=== PATIENT | male | born 1970 | race Caucasian/White ===

== ENCOUNTER 2018-04-26 10:02 | Outpatient (REF) | payer MEDICAID, SELFPAY ==
[2018-04-26 12:42] LABS: Hemoglobin A1C 9.9 % (4.5-6.2)
[2018-04-26 12:53] LABS: ALT 68 U/L (12-78); AST 33 U/L (15-37); Alkaline Phosphatase 92 U/L (46-116); Bilirubin, Direct 0.21 mg/dL (0.00-0.20); Bilirubin, Total 0.8 mg/dL (0.2-1.0); Total Protein 7.5 g/dL (6.4-8.2)
[2018-04-26 12:54] LABS: COMMENT (LAB VIEW ONLY) 58.33 mg/dL; Microalb ug/mg Crea 84.2 ug/mg Cr
== END 2018-04-26 10:03 ==
LOC: NCHCN 10:02
PROVIDERS: PCP Nurse Practitioner; Visit Provider Nurse Practitioner
DX: E11.9 Type 2 diabetes mellitus without complications (principal); R79.89 Other specified abnormal findings of blood chemistry
CPT/HCPCS: 80076; 82043; 82570; 83036

== ENCOUNTER 2019-07-24 12:26 | Outpatient (REF) | payer MEDICAID, SELFPAY ==
[2019-07-24 19:27] LABS: HCT 47.5 % (40.0-50.0); HGB 16.1 g/dL (13.5-17.5); Mean Corp. HGB Concentration 33.9 g/dL (32.0-36.0); Mean Corpuscular Hemoglobin 29.4 pg (27.0-33.0); Mean Corpuscular Volume 86.7 fL (80-95); Mean Platelet Volume 11.8 fL (8.0-11.0); Platelet Count 217 x1000/uL (130-400); RBC 5.48 m/cumm (4.50-6.00); RBC Distribution Width 12.8 % (11.8-14.1); White Blood Cell Count 10.25 k/cumm (4.4-10.8)
[2019-07-24 19:49] LABS: ALT 47 U/L (16-63); AST 21 U/L (15-37); Albumin 3.8 g/dL (3.4-5.0); Alkaline Phosphatase 89 U/L (46-116); Anion Gap 11.1 mmol/L (3-11); BUN 11 mg/dL (7-18); Bilirubin, Total 1.2 mg/dL (0.2-1.0); CO2 25.9 mmol/L (21.0-32.0); CREATININE 0.72 mg/dL (0.70-1.30); Calcium 9.4 mg/dL (8.5-10.1); Chloride 102 mmol/L (98-107); Glucose 162 mg/dL (70-100); Potassium 4.1 mmol/L (3.5-5.1); Sodium 139 mmol/L (136-145); TSH (W/Ref FT4) 0.58 uIU/mL (0.36-3.74); Total Protein 7.2 g/dL (6.4-8.2); Vitamin B12 597 pg/mL (193-986)
[2019-07-26 06:17] LABS: Vitamin D 25 Total 22.3 ng/ml (30-100)
== END 2019-07-24 12:46 ==
LOC: NCHCN 12:26
PROVIDERS: PCP Nurse Practitioner; Visit Provider Nurse Practitioner
DX: R79.89 Other specified abnormal findings of blood chemistry (principal); I10 Essential (primary) hypertension; E11.9 Type 2 diabetes mellitus without complications
CPT/HCPCS: 80053; 82306; 85027; 82607; 84443

== ENCOUNTER 2019-10-19 11:09 | Emergency (ER) | payer MEDICAID, SELFPAY ==
[2019-10-19 11:14] VITALS: BP 163/111; PULSE 110; RESP 18; TEMP 36.7; O2SAT 97
--- NOTE | 2019-10-19 11:17 | W.ED.GENAD ---
Discharge Plan Disposition Patient Disposition: HOME Condition: Good Discharge Details Chief Complaint: PsychEval Clinical Impression: Cellulitis Primary Care Provider: Shana Ceballos ED Provider: Liam Roper Home Meds and New Rx's Prescriptions: New cephalexin [Keflex] 500 mg capsule 500 mg PO QID 10 Days Qty: 40 RF: 0 No Action atorvastatin [Lipitor] 20 MG tablet 20 mg PO HS RF: 0 omeprazole 40 MG capsule,delayed release(DR/EC) 40 mg PO DAILY RF: 0 lisinopril 10 MG tablet 10 mg PO HS RF: 0 Lantus Solostar U-100 Insulin 100 UNIT/ML insulin pen 36 units SQ HS RF: 0 Discharge Instructions Instructions: Cellulitis (ED) Additional Instructions: At this time you do have mild cellulitis of your arms. This is secondary to the scratching. Please cover with triple antibiotic or bacitracin ointment 2-3 times per day, keep bandage, and please stop scratching at the areas. Please take the Keflex as directed. If you have any questions or concerns in regards to the care of your father or need continued help navigating the complex system of insurance and Medicare and Medicaid please do not hesitate to contact us or our case management social worker for additional help. If you notice any worsening of your symptoms, or any new symptoms such as vomiting, diarrhea, fever, chills, shortness of breath, chest pain, numbness, weakness, or fainting , please return immediately to the emergency department for reevaluation. Please follow up with your primary care provider as soon as possible for reassessment and reevaluation. As always, it was a pleasure participating in your medical care today. Referrals: Shana Ceballos [Primary Care Provider] - Discharge Data Discharge Date/Time-TO BE ENTERED AT DEPARTURE: 10/19/19 12:40 Medical Decision Making This is a pleasant 48-year-old male with past medical history of diabetes, hypertension, and high cholesterol and reflux who presents today for evaluation of 2 lesions on his arms bilaterally. Patient has had a significant amount of stress in his home as of late secondary to the Alzheimer's dementia of his father. Because of this he has been picking at his forearms bilaterally leading to 2 medium sized ulcerated lesions, one on each side. Diameter is roughly 3-1/2 cm. No losing or discharge. No evidence of abscess or fluctuance. No traveling redness. No other significant abnormalities. Patient denies any homicidal or suicidal ideations. He denies any IV or illicit drug use. No indication for significant mental health evaluation as he shows no signs of concerning psychiatric episode at this point. He does have mild cellulitis which she is requesting to be treated. No evidence of fever or chills. No evidence of bacteremia. Will give Keflex here, first dose here and then a prescription for home use. Lesions were washed, and bandaged. We have contacted mental health discussed the case with Shirley. The patient has multiple resources at home for help, and for himself with help in alleviating the stressors. We have been in contact with multiple case management social worker in regards to the issues with his father, we are actively working to help solve his potential placement issue. The patient has no other requests at this time. He is asking to go home. I do feel that this is safe and appropriate. [facility] will be continuing to follow him closely on an outpatient basis and has no other additional recommendations at this time. I have extensively reviewed the treatment plan and discharge instructions with the patient. I have addressed all patient concerns at this time. The patient was made aware of what symptoms to monitor for that would warrant a return to the emergency department. Discussed the plan with the patient, they demonstrate verbal understanding and agreement with our assessment and plan at this time. HPI General Date/Time Provider Initiated Documentation: 10/19/19 11:09. HPI Narrative: This is a 48-year-old male with a past medical history of hypertension, high cholesterol, insulin-dependent diabetic, who presents today for evaluation of lesions on his 2 arms. Patient has had notable stresses at home with the severity of his father's Alzheimer's/dementia. Because of the stress he has been picking at his forearms bilaterally. He has had small lesions over this area, which have developed some mild redness. His template layout worker recommended that he come be evaluated. He denies any homicidal or suicidal ideations. He denies any numbness tingling or weakness. He denies any fever or chills. No discharge or drainage. No other complaints at this time. He has not been on any recent antibiotics. He denies any auditory or visual hallucinations, suicidal ideations, homicidal ideations, IV or illicit drug use. Related Data Home Medications Medication Instructions Recorded Confirmed atorvastatin [Lipitor] 20 mg PO HS 06/25/16 10/19/19 insulin glargine [Lantus Solostar] 36 units SQ HS 06/25/16 10/19/19 lisinopril 10 mg PO HS 06/25/16 10/19/19 omeprazole 40 mg PO DAILY 06/25/16 10/19/19 cephalexin [Keflex] 500 mg PO QID 10 Days #40 cap 10/19/19 Previous Rx's Medication Instructions Recorded cephalexin [Keflex] 500 mg PO QID 10 Days #40 cap 10/19/19 Allergies Allergy/AdvReac Type Severity Reaction Status Date / Time esomeprazole [From Nexium] Allergy Unverified 10/19/19 11:20 General Stated Complaint: PsychEval SHARLENE: 2 Review of Systems All systems reviewed & are unremarkable except as noted in HPI and below PFSH Social History Smoking/Tobacco Use Status: Former Tobacco Use Alcohol Intake: current Alcohol Intake frequency: 3 or more drinks per day Alcohol type: beer Drug use: Occasionally Substance use type: marijuana Do you feel safe at home: Yes Exam Narrative Exam Narrative: 1.Const: Well-nourished, Well-developed, appearing stated age 2.Eyes: PERRL, no conjunctival injection, and symmetrical lids. 3.ENT: Atraumatic external nose and ears. Moist MM. Neck: Symmetric, trachea midline, No thyromegaly. 4.CVS: +S1/S2, No murmurs or gallops. Peripheral pulses 2+ and equal in all extremities. Brisk capillary refill in all extremities. 5.RESP: Unlabored respiratory effort. Clear to auscultation bilaterally. No wheezes rales or rhonchi 6.GI: Soft, Nontender/Nondistended, No hepatosplenomegaly. No guarding or rebound. 7.MSK: Normocephalic/Atraumatic, Extremities w/o deformity or ttp No cyanosis or clubbing, Normal movement of all extremities 8.Skin: Patient's forearms demonstrate 2 superficial lesions which appear to be secondary to chronic picking. Mild to moderate skin breakdown/ulceration, no done metal lesions. There is a small amount of erythema surrounding it, no fluctuance. No significant warmth. No drainage or discharge or evidence of abscess. Signs and symptoms are concerning for very minimal cellulitis. No clinical evidence of abscess. No other significant abnormalities. No evidence of compartment syndrome, necrotizing fasciitis, or gangrene. 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 Sensation grossly intact, no focal neurologic deficits. 10.Psych: (AAO) x3. Appropriate mood and affect Course Vital Signs Vital signs: Vital Signs Temperature 36.7 C 10/19/19 11:14 Pulse 110 H 10/19/19 11:14 Respiratory Rate 18 10/19/19 11:14 Blood Pressure 163/111 H 10/19/19 11:14 Pulse Oximetry 97 10/19/19 11:14 Temperature 36.7 C 10/19/19 11:14 Temperature Source Skin 10/19/19 11:14 Pulse 110 H 10/19/19 11:14 Respiratory Rate 18 10/19/19 11:14 Blood Pressure 163/111 H 10/19/19 11:14 Blood Pressure Position Sitting 10/19/19 11:14 Pulse Oximetry 97 10/19/19 11:14 Oxygen Delivery Method Room Air 10/19/19 11:14 Oxygen Flow Rate 0 10/19/19 11:14
[2019-10-19] MEDS: Cephalexin 500 MG CAP PO (11:24)
--- NOTE | 2019-10-19 12:32 | PDOC.MHCN_ITS ---
Date of service: 10/19/19 Time of Service: 12:33 Mental Health Crisis Note Presenting Issue How did you arrive at the ED and why did you come: Amairani came to the ER today independently after he was at [facility]. Dania from [facility] called and was concerned about his mental status and some peeled skin on his arms. I suggested he go to the ER to have his wounds checked. Precipitating Factors Amairani denied SI and HI. He is having no delusions or hallucinations. Disposition BEHAVIOR: Amairani is cooperative and very excited. He is engaged in conversations about what is happening for him right now and what he is feeling he is needing. EYE CONTACT: Amairani makes good eye contact. MOOD: Amairani's mood is animated but relaxes the more he talks about his struggles. AFFECT: Amairani's affect is normal. APPETITE: Amairani reported that his appetite is good. SLEEP(trouble falling/staying asleep: Amairani reported that when he goes to sleep is is good. Plan I will do an in house referral for counseling. Amairani needs to call the numbers given to him form [employer] yesterday to seek supports and services for his father through [facility]. Signature Clinician's Name/Title: Shirley Zelaya MS, [facility] Emergency Services Clinician
== END 2019-10-19 12:40 | disposition home or self-care (01) ==
LOC: ER 11:26
PROVIDERS: Emergency Provider Student in an Organized Health Care Education/Training Program; PCP Nurse Practitioner
DX: L03.113 Cellulitis of right upper limb (principal); L03.114 Cellulitis of left upper limb; F42.4 Excoriation (skin-picking) disorder; Z63.79 Other stressful life events affecting family and household; E11.9 Type 2 diabetes mellitus without complications; Z79.4 Long term (current) use of insulin; I10 Essential (primary) hypertension
CPT/HCPCS: 99283

== ENCOUNTER 2019-12-12 09:46 | Outpatient (REF) | payer MEDICAID, SELFPAY ==
[2019-12-12 13:09] LABS: Abs Immature Grans 0.03 k/cumm (0.0-0.09); Absolute Basophil Count 0.01 k/cumm (0.0-0.2); Absolute Eosinophil Count 0.08 k/cumm (0.0-0.7); Absolute Lymphocyte Count 2.24 k/cumm (1.2-3.4); Absolute Monocyte Count 0.43 k/cumm (0.11-0.7); Basophils % 0.1; Eosinophils % 1.1; HCT 48.9 % (40.0-50.0); HGB 17.1 g/dL (13.5-17.5); Immature Grans % 0.4 %; Lymphocytes % 30.3; Mean Corpuscular Hemoglobin 29.4 pg (27.0-33.0); Mean Corpuscular Volume 84.2 fL (80-95); Mean Platelet Volume 12.3 fL (8.0-11.0); Monocytes % 5.8; Neutrophils % 62.3; Platelet Count 174 x1000/uL (130-400); RBC 5.81 m/cumm (4.50-6.00); White Blood Cell Count 7.39 k/cumm (4.4-10.8)
[2019-12-12 13:37] LABS: ALT 42 U/L (16-63); AST 21 U/L (15-37); Albumin 4.2 g/dL (3.4-5.0); Alkaline Phosphatase 97 U/L (46-116); Anion Gap 11.1 mmol/L (3-11); BUN 18 mg/dL (7-18); Bilirubin, Total 1.2 mg/dL (0.2-1.0); CO2 27.9 mmol/L (21.0-32.0); CREATININE 0.84 mg/dL (0.70-1.30); Calcium 9.4 mg/dL (8.5-10.1); Chloride 98 mmol/L (98-107); Glucose 313 mg/dL (74-106); Potassium 4.1 mmol/L (3.5-5.1); Sodium 137 mmol/L (136-145); Total Protein 7.8 g/dL (6.4-8.2)
--- NOTE | 2019-12-24 08:38 | W.HOLTRPT ---
Date of service: 12/24/19 Time of Service: 08:39 Holter Monitor Report Holter Monitor Note: This Holter monitor was placed for evaluation of syncope Monitoring time was 7 hours and 5 minutes. The rhythm throughout was sinus. Average heart rate was 110 bpm. Minimum heart rate was 94 and peak heart rate 139. There were no atrial or ventricular dysrhythmias. There were no pauses. There was no significant bradycardia
== END 2019-12-12 10:06 ==
LOC: NCHCN 09:46
PROVIDERS: PCP Nurse Practitioner; Visit Provider Nurse Practitioner
DX: E11.9 Type 2 diabetes mellitus without complications (principal)
CPT/HCPCS: 80053; 85025

== ENCOUNTER 2019-12-17 03:05 | Outpatient (CLI) | payer MEDICAID, SELFPAY | END 2019-12-17 03:25 | PROVIDERS: PCP Nurse Practitioner; Visit Provider Nurse Practitioner | DX: R55 Syncope and collapse (principal) | CPT/HCPCS: 93225 ==

== ENCOUNTER 2019-12-19 12:02 | Outpatient (CLI) | payer MEDICAID, SELFPAY | END 2019-12-19 12:22 | PROVIDERS: PCP Nurse Practitioner; Visit Provider Nurse Practitioner | DX: R55 Syncope and collapse (principal) | CPT/HCPCS: 93226 ==

== ENCOUNTER 2020-04-11 14:41 | Emergency (ER) | payer MEDICAID, SELFPAY ==
[2020-04-11 14:48] VITALS: BP 146/83; PULSE 92; RESP 16; TEMP 36.5; O2SAT 97
--- NOTE | 2020-04-11 16:10 | ED.GENADUL_ITS ---
Discharge Plan Disposition Patient Disposition: HOME Condition: Stable Discharge Details Chief Complaint: Sorethroat Clinical Impression: Pharyngitis Primary Care Provider: Shana Ceballos ED Provider: Aj Torres Home Meds and New Rx's Prescriptions: Continued atorvastatin [Lipitor] 20 MG tablet 20 mg PO HS RF: 0 omeprazole 40 MG capsule,delayed release(DR/EC) 40 mg PO DAILY RF: 0 lisinopril 10 MG tablet 10 mg PO HS RF: 0 Lantus Solostar U-100 Insulin 100 UNIT/ML insulin pen 60 units SQ HS RF: 0 Victoza 3-Seamus 0.6 mg/0.1 mL (18 mg/3 mL) pen injector 1.8 mg SUBCUT DAILY RF: 0 Discharge Instructions Instructions: Pharyngitis (ED) Additional Instructions: Rapid strep test is negative, culture pending. Salt water gargles, [id number] Tylenol and/or Motrin, Chloraseptic spray as directed. Please watch for new or worsening symptoms and return to the ER for any concerns. If your culture does grow any bacteria we will contact you and placed you on the proper antibiotics. I do recommend that you contact your primary care provider on Tuesday for prompt outpatient reevaluation, if symptoms persist outpatient referral to ENT may be indicated. Discharge Data Discharge Date/Time-TO BE ENTERED AT DEPARTURE: 04/11/20 16:20 Medical Decision Making 49-year-old gentleman with a history of diabetes presents for a sore throat over the past 4 days. He is afebrile. He appears well, nontoxic, able to speak in full sentences, no respiratory compromise, able to manage his secretions without difficulty. His airway is patent. No evidence of uvula midline shift or peritonsillar abscess. Likely viral versus bacterial pharyngitis. No obvious foreign body. Will obtain rapid strep Rapid strep negative. In the meantime patient was able to tolerate p.o. intake without difficulty. Discussed strep which is negative, culture pending. Treatment options now will be salt water gargles, Chloraseptic spray, [id number] Tylenol and/or Motrin. Likely viral however patient was encouraged to return to the ER for new or worsening symptoms, otherwise follow- up with his primary care provider. Patient with no additional questions or concerns and comfortable discharge. Medical Records Medical records reviewed: Yes I reviewed the patient's medical records. Lab Data Lab results reviewed: Yes I reviewed the patient's lab results. Lab results narrative: 04/11/20 11:52 Tonsil - Not Specified Streptococcus Screen (ADILSON) - Pending HPI General Mode of arrival: ambulatory . Date/Time Provider Initiated Documentation: 04/11/20 15:00 . Limitations to Documentation: no limitations . Information obtained by: patient . HPI Narrative: This is a 49-year-old gentleman with history of diabetes, hypertension, hyperlipidemia, presenting with a sore throat for the past 4 days. He reports that he is able to swallow liquids without difficulty however solid foods does hurt more and makes him want to gag however he is able to eat solid food. He denies any recent travel or sick contact. He denies any fever, ear pain, shortness of breath, cough or abdominal pain with nausea, vomiting. Patient reports that he is able to eat but simply does not want to because of the discomfort. He presents today concerned about strep throat or his tonsils because I have diabetes. Related Data Home Medications Medication Instructions Recorded Confirmed Lantus Solostar U-100 Insulin 60 units SQ HS 06/25/16 04/11/20 atorvastatin [Lipitor] 20 mg PO HS 06/25/16 04/11/20 lisinopril 10 mg PO HS 06/25/16 04/11/20 omeprazole 40 mg PO DAILY 06/25/16 04/11/20 Victoza 3-Seamus 1.8 mg SUBCUT DAILY 04/11/20 04/11/20 Allergies Allergy/AdvReac Type Severity Reaction Status Date / Time esomeprazole [From Nexium] Allergy Unverified 04/11/20 15:00 General Stated Complaint: Sorethroat SHARLENE: 3 Review of Systems Constitutional Constitutional: Denies fatigue and Denies fever(s) Eyes Eyes: Denies eye discharge ENT Ears, Nose, Mouth, and Throat: Denies otalgia, Denies neck pain, Reports sore throat and Denies throat swelling Cardiovascular Cardiovascular: Denies chest pain and Denies dyspnea Respiratory Respiratory: Denies cough and Denies dyspnea Gastrointestinal Gastrointestinal: Denies abdominal pain, Denies nausea and Denies vomiting Musculoskeletal Musculoskeletal: Denies back pain and Denies neck pain Integumentary/Breasts Skin/Breast: Denies rash Endocrine Endocrine: Denies fatigue Allergic/Immunologic Allergic/Immunologic: Denies throat swelling [facility] Social History Smoking/Tobacco Use Status: Former Tobacco Use Alcohol Intake: current Alcohol Intake frequency: 3 or more drinks per day Alcohol type: beer Drug use: Occasionally Substance use type: marijuana Do you feel safe at home: Yes Exam Const General: cooperative, healthy appearing, comfortable and no acute distress Orientation: alert, awake and oriented x3 HENMT Head: normal to inspection, normocephalic and atraumatic Ears: external ears normal, TM's normal bilaterally and EAC's normal General nose exam: external nose normal Face and sinus: normal facial exam Mouth: oral mucosae normal and moist mucous membranes Throat: uvula midline, abnormal tonsil bilaterally erythema; no exudates and no hypertrophy, no peritonsillar masses, posterior oropharynx abnormal erythema; no cobblstoning, no edema and no exudates and uvula not displaced Eyes Conjunctivae: conjunctivae normal Sclera: sclerae normal Neck Neck: normal visual inspection, full ROM, no lymphadenopathy, no meningeal signs, trachea midline, supple and nontender Resp Effort & Inspection: normal respiratory effort and able to speak in complete sentences Auscultation: clear to auscultation bilaterally Cardio Rate: regular rate Rhythm: regular rhythm GI Palpation: soft and nontender Skin General skin exam: no rashes or lesions noted Neuro General: patient alert, patient awake, moves all extremities and no focal motor deficits Speech: speech normal Motor: muscle tone normal throughout Sensory Exam: no sensory deficits noted Psych Appearance: grossly normal Mental Status: mental status grossly normal Course Vital Signs Vital signs: Vital Signs Temperature 36.5 C 04/11/20 14:48 Pulse 92 H 04/11/20 14:48 Respiratory Rate 16 04/11/20 14:48 Blood Pressure 146/83 H 04/11/20 14:48 Pulse Oximetry 97 04/11/20 14:48 Temperature 36.5 C 04/11/20 14:48 Temperature Source Skin 04/11/20 14:48 Pulse 92 H 04/11/20 14:48 Respiratory Rate 16 04/11/20 14:48 Respiratory Effort 04/11/20 15:01 Blood Pressure 146/83 H 04/11/20 14:48 Blood Pressure Position Sitting 04/11/20 14:48 Pulse Oximetry 97 04/11/20 14:48 Oxygen Delivery Method Room Air 04/11/20 14:48 Oxygen Flow Rate 0 04/11/20 14:48 Pain Level 5 04/11/20 14:48 Comment 04/11/20 14:48 Lab/Test Results Lab/Test Results: 04/11/20 11:52 Tonsil - Not Specified Streptococcus Screen (ADILSON) - Pending POC Strep Test-REBECCA(Rapid) Start: 04/11/20 15:18 Freq: .Rapid Strep Test Status: Active Protocol: Document 04/11/20 15:40 BS (Rec: 04/11/20 15:40 BS [id number]) Strep test-REBECCA(Rapid)-POC POC-Strep test-REBECCA (Rapid) Negative POC-Strep test-REBECCA (Rapid) Negative
== END 2020-04-11 16:20 | disposition home or self-care (01) ==
PROVIDERS: Emergency Provider Physician Assistant; PCP Nurse Practitioner
DX: J02.9 Acute pharyngitis, unspecified (principal); E11.9 Type 2 diabetes mellitus without complications; Z79.4 Long term (current) use of insulin; I10 Essential (primary) hypertension
CPT/HCPCS: 87880; 99282; 87081

== ENCOUNTER 2020-04-25 15:28 | Emergency (ER) | payer MEDICAID, SELFPAY ==
[2020-04-25] VITALS (41 sets, daily range): BP systolic 107–159; BP diastolic 63–109; PULSE 85–120; RESP 9–27; TEMP 36.6–37; O2SAT 93–98
--- NOTE | 2020-04-25 15:30 | RT.EKG_ITS ---
APPROVED REPORT Exam: Resting ECG Patient Location: E HR:116 bpm ECG Measurements Heart Rate 116 AXIS OR 157 P 61 QRSd 111 QRS -39 QT 331 T 81 QTc 461 <Conclusion> Sinus tachycardia...rate> 99 Left ventricular hypertrophy...multiple LVH criteria ST elev, probable normal early repol pattern...ST elevation, age<55.
[2020-04-25] MEDS: Normal Saline 1,000 ML 1000 ML IV ×3 (15:51→20:15)
[2020-04-25 16:04] LABS: Abs Immature Grans 0.04 10^3/uL (0.0-0.06); Absolute Basophil Count 0.01 10^3/uL (0.0-0.2); Absolute Eosinophil Count 0.09 10^3/uL (0.0-0.7); Absolute Lymphocyte Count 1.71 10^3/uL (1.2-3.4); Absolute Monocyte Count 0.49 10^3/uL (0.1-0.8); Absolute Neutrophil Count 5.32 10^3/uL (1.2-6.7); Basophils % 0.1; Eosinophils % 1.2; HCT 47.7 % (40.0-50.0); HGB 16.5 g/dL (13.5-17.5); Immature Grans % 0.5; Lymphocytes % 22.3; MCH 29.7 pg (27.0-33.0); MCHC 34.6 % (32.0-36.0); MCV 85.8 fL (80-95); Monocytes % 6.4; Neutrophils % 69.5; Platelet Count 198 10^3/uL (130-400); RBC 5.56 10^6/uL (4.36-5.78); RDW 11.7 % (11.8-14.1); RDW-SD 36.7 fL; WBC 7.66 10^3/uL (4.4-10.8)
[2020-04-25 16:18] LABS: ALT 50 U/L (16-63); AST 25 U/L (15-37); Albumin 3.7 g/dL (3.4-5.0); Alkaline Phosphatase 89 U/L (46-116); Anion Gap 9.6 mmol/L (3-11); BUN 14 mg/dL (7-18); Bilirubin, Total 0.8 mg/dL (0.2-1.0); CO2 27.4 mmol/L (21.0-32.0); CREATININE 1.19 mg/dL (0.70-1.30); Calcium 9.1 mg/dL (8.5-10.1); Chloride 93 mmol/L (98-107); Magnesium 1.9 mg/dL (1.8-2.4); Potassium 4.3 mmol/L (3.5-5.1); Sodium 130 mmol/L (136-145); Total Protein 8.2 g/dL (6.4-8.2)
[2020-04-25 16:21] LABS: Glucose 527 mg/dL (74-106)
--- NOTE | 2020-04-25 16:30 | DI.RAD_ITS ---
EXAM: XR CHEST 2V PA LATERAL CLINICAL HISTORY: upper abd pain, n/v, hx of DM TECHNIQUE: 2D digital imaging was performed. COMPARISON: No exams were available for comparison FINDINGS: The heart is not enlarged. The lungs are clear and well expanded. No pleural effusion seen. Mediastin al contours appear intact. IMPRESSION: Normal chest
[2020-04-25] MEDS: Ondansetron 4 MG/2 ML VIAL IVP (16:33)
[2020-04-25 16:45] LABS: Bilirubin Negative (Negative); Blood Small (Negative); Clarity Clear (Clear); Glucose 500 mg/dL (Negative); Ketones Negative (Negative); Leukocyte Esterase Negative (Negative); Nitrite Negative (Negative); Urobilinogen 0.2 EU/dL (Up TO 0.2); pH 6.5 (5-8)
--- NOTE | 2020-04-25 16:49 | ED.GENADUL_ITS ---
Discharge Plan Disposition Patient Disposition: HOME Discharge Details Chief Complaint: Diabetes Clinical Impression: Epigastric pain Primary Care Provider: Shana Ceballos ED Provider: Aj Torres Home Meds and New Rx's Prescriptions: New ondansetron HCl [Zofran] 4 mg tablet 4 mg PO Q8H PRNQty: 10 RF: 0 Continued atorvastatin [Lipitor] 20 MG tablet 20 mg PO HS RF: 0 omeprazole 40 MG capsule,delayed release(DR/EC) 40 mg PO DAILY RF: 0 lisinopril 10 MG tablet 10 mg PO HS RF: 0 Lantus Solostar U-100 Insulin 100 UNIT/ML insulin pen 60 units SQ HS RF: 0 Victoza 3-Seamus 0.6 mg/0.1 mL (18 mg/3 mL) pen injector 1.8 mg SUBCUT DAILY RF: 0 hydrochlorothiazide 12.5 mg tablet 12.5 mg PO DAILY RF: 0 cholecalciferol (vitamin D3) [Vitamin D3] 25 mcg (1,000 unit) tablet 25 mcg PO DAILY RF: 0 Discharge Instructions Instructions: Epigastric Pain (ED) Additional Instructions: At this time your laboratory values do not reveal any obvious emergent process and your rapid cardiac rule out here in the ER was negative. I do believe that your discomfort is likely coming from your stomach such as gastritis or possibly peptic ulcer disease versus biliary disease. I do recommend you avoid spicy, fatty, greasy, fried foods. Zofran as directed. Please be sure to monitor your glucose levels carefully. As we discussed, outpatient work-up possibly including endoscopy may be warranted, I have placed you on the surgical list. I recommend you contact their office on Tuesday for prompt outpatient reevaluation. Please watch for new or worsening symptoms and return to the ER for any concerns. Referrals: Lanette Harrison MD [ [facility] STAFF PHYSICIAN] - Discharge Data Discharge Date/Time-TO BE ENTERED AT DEPARTURE: 04/25/20 20:55 Medical Decision Making 49-year-old gentleman with a history of diabetes, GERD, hypertension, hypercholesteremia, presents with 2-week history of intermittent abdominal pain and nausea worse with eating or just after eating. He denies any chest pain or shortness of breath whatsoever. No bad food exposure, sick contact, diarrhea or constipation. Clinically he does look a little dry, blood pressure upon presentation is elevated and he does present with mild tachycardia. Fingerstick glucose in the 500s. Regarding his abdominal pain, certainly sounds as though this may be biliary colic, cholecystitis, peptic ulcer disease, gastritis, GERD, etc. Given he is diabetic I do believe it is prudent to rule out ACS although much lower suspicion. I do feel as though he is dehydrated as well, I would like to give him IV hydration. Prior to my evaluation he already received Zofran and reports that his nausea is significantly improved. Certainly DKA is on the differential however he appears fairly well and again this is lower on my differential. Will not reflexively obtain an acetone however if he has an elevated anion gap along with ketones in his urine certainly will obtain. I discussed my thought process to the patient. He is willing to stay in the ER for a repeat 3-hour troponin if necessary. Given low suspicion of ACS will not initiate aspirin therapy. Patient is agreeable to a GI cocktail. Initial liter of IV fluid in, repeat fingerstick now in the 300s. Patient reports that he is now completely asymptomatic after the GI cocktail. Laboratory values reveal a white blood cell count of 7.66, hemoglobin 16.5 hematocrit 47.7 platelet count 198. Sodium of 130, is currently receiving IV normal saline, potassium 4.30 carbon dioxide 27.4 anion gap 9.6. Creatinine 1.19 with a GFR greater than 60. Initial glucose was 527 but we knew that already from the fingerstick. Will receive a second liter of IV fluid. Both blood pressure and heart rate are trending downward nicely. Patient is agreeable to obtaining a repeat troponin here in the ER. In the meantime he is currently asymptomatic, will p.o. challenge. Patient was able to eat without difficulty, denies any abdominal pain, nausea or vomiting. Patient was given 3rd L of IV fluid. Heart rate is now in the 90s, blood pressure 126/74. He remains asymptomatic. Repeat troponin is less than 0.05. He remains asymptomatic. Repeat glucose fingerstick at time of discharge blood sugar level 243. Repeat EKG performed at 2110, reviewed with Dr. España, sinus tachycardia, ventricular of 103. LVH, no STEMI. Please see her official report patient has no additional questions or concerns and is quite comfortable discharge. We discussed his most likely diagnosis is gastritis, peptic ulcer disease, biliary colic, etc. I will place him on the surgical callback list and have expressed to him that I believe contacting the surgical suite on Tuesday for prompt outpatient reevaluation is prudent. We discussed dietary restrictions in the meantime. We will also provide a limited prescription of Zofran. Medical Records Medical records reviewed: Yes I reviewed the patient's medical records. Imaging Data Radiologic Study: Attestation: I personally reviewed and interpreted this imaging study as follows: Imaging: X-Ray My impression: Negative chest x-ray Lab Data Lab results reviewed: Yes I reviewed the patient's lab results. Lab results narrative: Laboratory Tests Range/Units 04/25/20 04/25/20 04/25/20 15:35 15:35 15:35 WBC (4.4-10.8) 10^3/uL 7.66 RBC (4.36-5.78) 10^6/uL 5.56 Hgb (13.5-17.5) g/dL 16.5 Hct (40.0-50.0) % 47.7 MCV (80-95) fL 85.8 MCH (27.0-33.0) pg 29.7 MCHC (32.0-36.0) % 34.6 RDW (11.8-14.1) % 11.7 L Plt Count (130-400) 10^3/uL 198 MPV (8.0-11.0) fL 12.0 H Immature Gran % 0.5 Neutrophils % 69.5 Lymphocytes % 22.3 Monocytes % 6.4 Eosinophils % 1.2 Basophils % 0.1 Absolute Neutrophils (1.2-6.7) 10^3/uL 5.32 Absolute Lymphocytes (1.2-3.4) 10^3/uL 1.71 Absolute Monocytes (0.1-0.8) 10^3/uL 0.49 Absolute Eosinophils (0.0-0.7) 10^3/uL 0.09 Absolute Basophils (0.0-0.2) 10^3/uL 0.01 Sodium (136-145) mmol/L 130 L Potassium (3.5-5.1) mmol/L 4.3 Chloride (98-107) mmol/L 93 L Carbon Dioxide (21.0-32.0) mmol/L 27.4 Anion Gap (3-11) mmol/L 9.6 BUN (7-18) mg/dL 14 Creatinine (0.70-1.30) mg/dL 1.19 Estimated GFR/1.73 m2 (mL/min/1.73m2) >= 60.00 Glucose (74-106) mg/dL 527 H* Calcium (8.5-10.1) mg/dL 9.1 Magnesium (1.8-2.4) mg/dL 1.9 Total Bilirubin (0.2-1.0) mg/dL 0.8 AST (15-37) U/L 25 ALT (16-63) U/L 50 Alkaline Phosphatase (46-116) U/L 89 Troponin I (<0.06) ng/mL < 0.05 Total Protein (6.4-8.2) g/dL 8.2 Albumin (3.4-5.0) g/dL 3.7 Urine Color (Yellow) Urine Clarity (Clear) Urine pH (5-8) Ur Specific [place] (1.005-1.025) Urine Protein (Negative) mg/dL Urine Ketones (Negative) mg/dL Urine Blood (Negative) Urine Nitrite (Negative) Urine Bilirubin (Negative) Urine Urobilinogen (Up TO 0.2) EU/dL Ur Leukocyte Esterase (Negative) Urine RBC (0-2) HPF Urine WBC (0-5) HPF Ur Epithelial Cells (Negative) HPF Urine Crystals (Negative) HPF Urine Bacteria (Negative) HPF Urine Mucus (Negative) Ur Culture Indicated? Urine Glucose (Negative) mg/dL Range/Units 04/25/20 04/25/20 16:40 18:30 WBC (4.4-10.8) 10^3/uL RBC (4.36-5.78) 10^6/uL Hgb (13.5-17.5) g/dL Hct (40.0-50.0) % MCV (80-95) fL MCH (27.0-33.0) pg MCHC (32.0-36.0) % RDW (11.8-14.1) % Plt Count (130-400) 10^3/uL MPV (8.0-11.0) fL Immature Gran % Neutrophils % Lymphocytes % Monocytes % Eosinophils % Basophils % Absolute Neutrophils (1.2-6.7) 10^3/uL Absolute Lymphocytes (1.2-3.4) 10^3/uL Absolute Monocytes (0.1-0.8) 10^3/uL Absolute Eosinophils (0.0-0.7) 10^3/uL Absolute Basophils (0.0-0.2) 10^3/uL Sodium (136-145) mmol/L Potassium (3.5-5.1) mmol/L Chloride (98-107) mmol/L Carbon Dioxide (21.0-32.0) mmol/L Anion Gap (3-11) mmol/L BUN (7-18) mg/dL Creatinine (0.70-1.30) mg/dL Estimated GFR/1.73 m2 (mL/min/1.73m2) Glucose (74-106) mg/dL Calcium (8.5-10.1) mg/dL Magnesium (1.8-2.4) mg/dL Total Bilirubin (0.2-1.0) mg/dL AST (15-37) U/L ALT (16-63) U/L Alkaline Phosphatase (46-116) U/L Troponin I (<0.06) ng/mL < 0.05 Total Protein (6.4-8.2) g/dL Albumin (3.4-5.0) g/dL Urine Color (Yellow) Yellow Urine Clarity (Clear) Clear Urine pH (5-8) 6.5 Ur Specific [place] (1.005-1.025) 1.010 Urine Protein (Negative) mg/dL Negative Urine Ketones (Negative) mg/dL Negative Urine Blood (Negative) Small H Urine Nitrite (Negative) Negative Urine Bilirubin (Negative) Negative Urine Urobilinogen (Up TO 0.2) EU/dL 0.2 Ur Leukocyte Esterase (Negative) Negative Urine RBC (0-2) HPF 0-2 Urine WBC (0-5) HPF Negative Ur Epithelial Cells (Negative) HPF Negative Urine Crystals (Negative) HPF Negative Urine Bacteria (Negative) HPF Negative Urine Mucus (Negative) Negative Ur Culture Indicated? No Urine Glucose (Negative) mg/dL 500 H ECG Data Attestation: I personally reviewed and interpreted this ECG (s) as follows: Interpretation: EKG reviewed and interpreted with Dr. España, please see her official read. Sinus tachycardia, ventricular rate 116. LVH, early repolarization. No STEMI HPI General Mode of arrival: ambulatory . Date/Time Provider Initiated Documentation: 04/25/20 15:49 . Limitations to Documentation: no limitations . Information obtained by: patient . HPI Narrative: This is a 49-year-old gentleman with history of diabetes, GERD, hyperlipidemia, hypertension, compl aining of nausea, vomiting, epigastric discomfort intermittently for the past 2 weeks. He feels as though he may be dehydrated. He reports the abdominal pain is typically present with or after eating and describes as a burning sensation. Currently he has no abdominal pain and reports the nausea is significantly better after he did receive Zofran. He denies any change of bowel or bladder habit. Denies bad food exposure, recent travel or sick contact. He denies history of abdominal surgery. He tells me that he has been taking all of his medications as directed but openly admits that he does not check his glucose levels regularly. Related Data Home Medications Medication Instructions Recorded Confirmed Lantus Solostar U-100 Insulin 60 units SQ HS 06/25/16 04/25/20 atorvastatin [Lipitor] 20 mg PO HS 06/25/16 04/25/20 lisinopril 10 mg PO HS 06/25/16 04/25/20 omeprazole 40 mg PO DAILY 06/25/16 04/25/20 Victoza 3-Seamus 1.8 mg SUBCUT DAILY 04/11/20 04/25/20 cholecalciferol (vitamin D3) 25 mcg PO DAILY 04/25/20 04/25/20 [Vitamin D3] hydrochlorothiazide 12.5 mg PO DAILY 04/25/20 04/25/20 ondansetron HCl [Zofran] 4 mg PO Q8H PRN #10 tab 04/25/20 Previous Rx's Medication Instructions Recorded ondansetron HCl [Zofran] 4 mg PO Q8H PRN #10 tab 04/25/20 Allergies Allergy/AdvReac Type Severity Reaction Status Date / Time esomeprazole [From Nexium] Allergy Unverified 04/11/20 15:00 General Stated Complaint: Diabetes SHARLENE: 3 Review of Systems Constitutional Constitutional: Denies fatigue, Denies fever(s), Denies headache(s) and Denies weakness Eyes Eyes: Denies change in vision ENT Ears, Nose, Mouth, and Throat: Denies headache(s), Denies neck pain and Denies sore throat Cardiovascular Cardiovascular: Denies chest pain and Denies dyspnea Respiratory Respiratory: Denies cough and Denies dyspnea Gastrointestinal Gastrointestinal: Reports abdominal pain, Denies constipation, Denies diarrhea, Reports nausea and Denies vomiting Genitourinary Genitourinary: Denies dysuria Musculoskeletal Musculoskeletal: Denies back pain, Denies neck pain, Denies numbness and Denies tingling Integumentary/Breasts Skin/Breast: Denies rash Neurologic Neurologic: Denies headache(s), Denies numbness, Denies tingling and Denies weakness Endocrine Endocrine: Denies fatigue [facility] Social History Smoking/Tobacco Use Status: Former Tobacco Use Alcohol Intake: current Alcohol Intake frequency: 0-2 drinks per day Alcohol type: beer Drug use: Occasionally Substance use type: marijuana Do you feel safe at home: Yes Do you feel safe in your relationship?: Yes Exam Const General: cooperative, healthy appearing, comfortable and no acute distress Orientation: alert, awake and oriented x3 HENMT Head: normal to inspection, normocephalic and atraumatic Face and sinus: normal facial exam Mouth: moist mucous membranes abnormal (Slightly dry) Throat: posterior oropharynx normal Eyes General: appearance normal, both eyes and all related structures Alignment and Position: alignment normal Periorbital: periorbital findings normal Eyelids: eyelids normal Conjunctivae: conjunctivae normal Sclera: sclerae normal Cornea: corneas normal Pupils: PERRL EOM: EOM intact bilaterally Direct ophthalmoscopy: normal light reflex Neck Neck: normal visual inspection, full ROM, no meningeal signs, trachea midline and supple Resp Effort & Inspection: normal respiratory effort and able to speak in complete sentences Auscultation: clear to auscultation bilaterally Cardio Rate: tachycardic (112) Rhythm: regular rhythm GI Inspection: normal to inspection and obesity Palpation: soft, not firm, no guarding, not rigid and nontender Auscultation: normal bowel sounds Back/Spine/Pelvis Back: No back tenderness Skin General skin exam: no rashes or lesions noted Neuro General: patient alert, patient awake, patient oriented x3, moves all extremities and no focal motor deficits Cranial Nerves: CN's II-XI intact bilaterally Cognition: normal cognition Speech: speech normal Gait: normal gait Motor: muscle tone normal throughout and strength 5/5 throughout Sensory Exam: no sensory deficits noted Extrem General: normal to inspection, full ROM and capillary refill normal Psych Appearance: grossly normal Mental Status: mental status grossly normal Course Vital Signs Vital signs: Vital Signs Temperature 36.6 C 04/25/20 15:35 Pulse 117 H 04/25/20 15:35 Respiratory Rate 16 04/25/20 15:35 Blood Pressure 159/109 H 04/25/20 15:35 Pulse Oximetry 98 04/25/20 15:35 Temperature 36.6 C 04/25/20 15:35 Temperature Source Tympanic 04/25/20 15:35 Pulse 117 H 04/25/20 15:35 Respiratory Rate 16 04/25/20 15:35 Respiratory Effort Non-Labored 04/25/20 15:39 Blood Pressure 159/109 H 04/25/20 15:35 Blood Pressure Position Sitting 04/25/20 15:35 Pulse Oximetry 98 04/25/20 15:35 Oxygen Delivery Method Room Air 04/25/20 15:35 Oxygen Flow Rate 0 04/25/20 15:35 Pain Level 4 04/25/20 16:33 Lab/Test Results Lab/Test Results: Laboratory Tests Range/Units 04/25/20 04/25/20 04/25/20 15:35 15:35 16:40 WBC (4.4-10.8) 10^3/uL 7.66 RBC (4.36-5.78) 10^6/uL 5.56 Hgb (13.5-17.5) g/dL 16.5 Hct (40.0-50.0) % 47.7 MCV (80-95) fL 85.8 MCH (27.0-33.0) pg 29.7 MCHC (32.0-36.0) % 34.6 RDW (11.8-14.1) % 11.7 L Plt Count (130-400) 10^3/uL 198 MPV (8.0-11.0) fL 12.0 H Immature Gran % 0.5 Neutrophils % 69.5 Lymphocytes % 22.3 Monocytes % 6.4 Eosinophils % 1.2 Basophils % 0.1 Absolute Neutrophils (1.2-6.7) 10^3/uL 5.32 Absolute Lymphocytes (1.2-3.4) 10^3/uL 1.71 Absolute Monocytes (0.1-0.8) 10^3/uL 0.49 Absolute Eosinophils (0.0-0.7) 10^3/uL 0.09 Absolute Basophils (0.0-0.2) 10^3/uL 0.01 Sodium (136-145) mmol/L 130 L Potassium (3.5-5.1) mmol/L 4.3 Chloride (98-107) mmol/L 93 L Carbon Dioxide (21.0-32.0) mmol/L 27.4 Anion Gap (3-11) mmol/L 9.6 BUN (7-18) mg/dL 14 Creatinine (0.70-1.30) mg/dL 1.19 Estimated GFR/1.73 m2 (mL/min/1.73m2) >= 60.00 Glucose (74-106) mg/dL 527 H* Calcium (8.5-10.1) mg/dL 9.1 Magnesium (1.8-2.4) mg/dL 1.9 Total Bilirubin (0.2-1.0) mg/dL 0.8 AST (15-37) U/L 25 ALT (16-63) U/L 50 Alkaline Phosphatase (46-116) U/L 89 Total Protein (6.4-8.2) g/dL 8.2 Albumin (3.4-5.0) g/dL 3.7 Urine Color (Yellow) Yellow Urine Clarity (Clear) Clear Urine pH (5-8) 6.5 Ur Specific [place] (1.005-1.025) 1.010 Urine Protein (Negative) mg/dL Negative Urine Ketones (Negative) mg/dL Negative Urine Blood (Negative) Small H Urine Nitrite (Negative) Negative Urine Bilirubin (Negative) Negative Urine Urobilinogen (Up TO 0.2) EU/dL 0.2 Ur Leukocyte Esterase (Negative) Negative Urine Glucose (Negative) mg/dL 500 H
[2020-04-25 16:54] LABS: Bacteria Negative HPF (Negative); C & S Indicated? No; Crystals Negative HPF (Negative); Epithelial Cells Negative HPF (Negative); Mucus Negative (Negative); RBC 0-2 HPF (0-2); WBC Negative HPF (0-5)
[2020-04-25 18:07] LABS: Troponin I < 0.05 ng/mL (<0.06)
[2020-04-25] MEDS: Lidocaine 2% Viscous 15 ML CUP (18:31)
[2020-04-25] MEDS: Mylanta Suspension 30 ML CUP (18:31)
--- NOTE | 2020-04-25 18:45 | RT.EKG_ITS ---
APPROVED REPORT Exam: Resting ECG Patient Location: E HR:103 bpm ECG Measurements Heart Rate 103 AXIS AR 166 P 59 QRSd 112 QRS -32 QT 351 T 61 QTc 459 <Conclusion> Sinus tachycardia...rate> 99 Left ventricular hypertrophy...multiple LVH criteria
--- NOTE | 2020-04-25 19:21 | DI.VRAD_ITS ---
PROCEDURE INFORMATION: Exam: XR Chest, 2 Views Exam date and time: 04/25/2020 7:04 PM Age: 49 years old Clinical indication: Other: Upper abd pain, n/v, HX of dm TECHNIQUE: Imaging protocol: XR of the chest Views: 2 views. COMPARISON: No relevant prior studies available. FINDINGS: Lungs: Unremarkable. No consolidation. Pleural space: Unremarkable. No pleural effusion. No pneumothorax. Heart/Mediastinum: Unremarkable. No cardiomegaly. Bones/joints: Unremarkable. IMPRESSION: 1. No acute findings. 2. Clear lungs and pleural space. 3. No free air seen under hemidiaphragms. Dictated and Authenticated by: Gilberto Bruner MD. Ordering:MADDIE Rocha MD
[2020-04-25 19:37] LABS: Troponin I < 0.05 ng/mL (<0.06)
--- NOTE | 2020-04-25 20:00 | NUR.NOTE ---
Nursing Note: PT care transferred to Jemma SANCHEZ. At the time of transfer the PT is alert and oriented, vitals stable.
--- NOTE | 2020-04-25 20:24 | NUR.NOTE ---
Nursing Note: REFERAL FAXED TO SURGERY04/25/20
== END 2020-04-25 20:55 | disposition home or self-care (01) ==
PROVIDERS: Registered Nurse Emergency; Emergency Provider Physician Assistant; PCP Nurse Practitioner
DX: R10.13 Epigastric pain (principal); E11.65 Type 2 diabetes mellitus with hyperglycemia; R11.0 Nausea; E86.0 Dehydration; Z79.4 Long term (current) use of insulin; I10 Essential (primary) hypertension
CPT/HCPCS: 36416; 80053; 82962; 93005; 96361; 96374; 99285; 71046; 81003; 81015; 83735; 84484; 85025; 93010; J2405

== ENCOUNTER 2020-05-09 07:52 | Outpatient (CLI) | payer MEDICAID, SELFPAY ==
[2020-05-10 17:52] LABS: COVID-19 RT-PCR Result NEGATIVE (Negative)
== END 2020-05-09 08:12 ==
PROVIDERS: PCP Nurse Practitioner; Visit Provider Surgery
DX: Z01.818 Encounter for other preprocedural examination (principal)
CPT/HCPCS: U0003

== ENCOUNTER 2020-05-13 08:14 | Day surgery (SDC) | payer MEDICAID, SELFPAY ==
[2020-05-13 08:36] VITALS: BP 149/82; PULSE 100; RESP 16; TEMP 36.2; O2SAT 98
--- NOTE | 2020-05-13 08:59 | W.PM.DSUDISC ---
Discharge Plan Disposition Patient Disposition: HOME Condition: Good Discharge Details Reason For Visit: EGD Attending Provider: Lanette Harrison Primary Care Provider: Shana Ceballos Home Meds and New Rx's Prescriptions: New sucralfate [Carafate] 1 gram tablet 1 gm PO QACHS Qty: 120 RF: 1 Continued atorvastatin [Lipitor] 20 MG tablet 20 mg PO HS RF: 0 omeprazole 40 MG capsule,delayed release(DR/EC) 40 mg PO DAILY RF: 0 lisinopril 10 MG tablet 10 mg PO HS RF: 0 Lantus Solostar U-100 Insulin 100 UNIT/ML insulin pen 64 units SQ HS RF: 0 Victoza 3-Seamus 0.6 mg/0.1 mL (18 mg/3 mL) pen injector 1.8 mg SUBCUT DAILY RF: 0 hydrochlorothiazide 12.5 mg tablet 12.5 mg PO DAILY RF: 0 cholecalciferol (vitamin D3) [Vitamin D3] 25 mcg (1,000 unit) tablet 25 mcg PO DAILY RF: 0 ondansetron HCl [Zofran] 4 mg tablet 4 mg PO Q8H PRNQty: 10 RF: 0 Discharge Instructions Additional Instructions: Findings: Your esophagus showed a possible change called Barretts esophagus. Biopsies were done to confirm the diagnosis. My office will contact you with results. Your stomach is inflamed (gastritis). Another antacid called Carafate has been sent to your pharmacy and should be taken for two months. Follow up: My office will contact you with biopsy results. Please call if you develop: fevers >101.5 Nausea or Vomiting Abdominal pain that is not transient DAY SURGERY UNIT POST EGD INSTRUCTIONS 1. Because there will be medication in your system for the next 24 hours, you may feel a little sleepy. Your coordination will be affected. Therefore: a. Do not drive or operate dangerous equipment for 24 hours. b. Do not drink alcohol beverages for 24 hours (not even beer). c. Plan to go home and rest for the day. 2. Generally there are no restrictions on your activity after a day or so has gone by, but you may feel a bit fatigued for a few days. 3 After you arrive home you may have a light meal and return to a normal diet as you can tolerate it without feeling sick to your stomach. 4. After surgery, you may feel pain or discomfort. This should be only transient, but if it persists please contact your doctor. 5. If there are any questions regarding the findings of your procedure, please feel free to contact your doctor. 6. If you are unable to contact your doctor with a problem, contact the hospital at [phone]. 7. Continue all your regular medications unless directed otherwise. I understand the above instructions and have no questions. Signature of Patient or Responsible Adult Escort Date/Time Name of Responsible Adult Escort Signature of Nurse Date/Time Activity:: Activity as Tolerated Diet:: As Tolerated Discharge Orders Discharge Orders: Discharge Order (Routine); Ordered 05/13/20 Ordered By: Lanette Harrison DS: Diagnosis Discharge Diagnosis (1) Gastritis: Status: Acute (2) Barretts esophagus: Status: Acute
[2020-05-13] MEDS: Lactated Ringers 1,000 ML 80 ML IV (09:00)
--- NOTE | 2020-05-13 09:01 | W.PM.ENDDOP ---
Date of service: 05/13/20 Time of Service: 09:58 Endoscopy Report DATE OF PROCEDURE: 05/13/20 PRE-OP DIAGNOSIS: Dysphagia, epigastric pain POST-OP DIAGNOSIS: other (Possible Barretts esophagus, moderate gastritis) PROCEDURE: EGD with biopsies SURGEON: Lanette Harrison ANESTHESIA: MAC INDICATIONS: This patient presented with epigastric pain and dysphagia over the past few months. PROCEDURE DESCRIPTION: The patient was placed in the left lateral position and propofol titrated to sedation. The endoscope was advanced into the esophagus under direct visualization. The scope was passed through the stomach and into the duodenum. There was no duodenitis or ulceration noted. Biopsies were taken from the second portion of the duodenum to evaluate for celiac disease. He was noted to have prominent lymphoceles. The stomach itself showed moderate gastritis including on retroflexed view of the fundus and lesser curvature. Routine biopsies were taken from the gastric antrum. The GE junction was inspected and showed no significant stricture, inflammation, masses. There were scattered patches of gastric appearing epithelium extending from the GE junction at 39cm to 35cm. Several areas of the more proximal disease were biopsied. The patient tolerated the procedure well and was stable to recovery. I will start him on Carafate. Need for follow up EGD will be based on biopsy results.
--- NOTE | 2020-05-13 09:30 | STOM_PTH ---
PATIENT: Roderick Gupta LOC: [facility] U#:[id number] AGE/SX: 49/M ROOM: RE05/13/[address]: Lanette Harrison MD : [id number] BED: DIS: 05/13/2020 SPEC #: [id number] RECD: 05/13/20 12:19 STATUS: AJ REQ #: [id number] ISAAC: 05/13/20 09:[address]: Lanette Harrison DEPT: Surgical Specimen RECD BY: Whitney Wilkins ENTERED: 05/13/20 12:20 SP TYPE: STOMACH OTHR DR: Shana Ceballos Tissues: 1 - BIOPSY BOWEL 2 - STOMACH BIOPSY 3 - ESOPHAGUS BIOPSY Procedures: GROSS AND MICRO LEVEL 4 Comments: [id number]
[2020-05-13 10:15] VITALS: BP 120/49; PULSE 89; RESP 16; TEMP 36; O2SAT 98
== END 2020-05-13 10:40 | disposition home or self-care (01) ==
PROVIDERS: PCP Nurse Practitioner; Visit Provider Surgery
PROC: 0DJ68ZZ Inspection of Stomach, Via Natural or Artificial Opening Endoscopic (ICD-10-PCS; CPT 43235; principal; 2020-05-13 09:30)
DX: R13.10 Dysphagia, unspecified (principal); R10.13 Epigastric pain; K31.89 Other diseases of stomach and duodenum; K22.70 Barrett's esophagus without dysplasia; K29.60 Other gastritis without bleeding
CPT/HCPCS: 43239; 88305

== ENCOUNTER 2020-09-05 22:16 | Outpatient (REF) | payer MEDICAID, SELFPAY ==
[2020-09-09 22:09] LABS: COVID-19 RT-PCR Result NEGATIVE (Negative)
== END 2020-09-05 22:36 ==
LOC: NCHCN 22:16
PROVIDERS: PCP Nurse Practitioner; Visit Provider Nurse Practitioner Family
DX: Z20.828 Contact with and (suspected) exposure to other viral communicable diseases (principal)
CPT/HCPCS: U0003

== ENCOUNTER 2020-09-13 11:56 | Outpatient (CLI) | payer MEDICAID, SELFPAY ==
--- NOTE | 2020-09-13 | DI.RAD_ITS ---
EXAM: XR CHEST 2V PA LATERAL CLINICAL HISTORY: DRY COUGH. TECHNIQUE: 2D digital imaging was performed. COMPARISON: CR,XR XR CHEST 2V PA LATERAL from 04/25/2020 FINDINGS: Heart size is normal. The mediastinum is not widened. There are no infiltrates nor pleural effusions. No pulmonary edema. IMPRESSION: No acute pulmonary findings.No significant change compared to 04/25/2020. DATA REPOSITORY: RADIATION DOSE DELIVERED:
--- NOTE | 2020-09-13 12:34 | DI.VRAD_ITS ---
PROCEDURE INFORMATION: Exam: XR Chest, 2 Views Exam date and time: 09/13/2020 12:09 PM Age: 49 years old Clinical indication: Patient HX: Dry cough x 3 weeks TECHNIQUE: Imaging protocol: XR of the chest Views: 2 views. COMPARISON: CR XR CHEST 2V PA LATERAL 04/25/2020 7:04 PM FINDINGS: Lungs: Hyperexpanded lung [place] consistent with COPD Pleural space: Unremarkable. No pleural effusion. No pneumothorax. Heart/Mediastinum: Stable cardiac silhouette Bones/joints: Unremarkable. IMPRESSION: Hyperexpanded lung [place] consistent with COPD Dictated and Authenticated by: Elliott Reyna MD. Ordering:CLOVER Escobar MD
== END 2020-09-13 12:16 ==
PROVIDERS: PCP Nurse Practitioner; Visit Provider Physician Assistant Medical
DX: R05 Cough (principal)
CPT/HCPCS: 71046

== ENCOUNTER 2020-10-20 15:16 | Outpatient (REF) | payer MEDICAID, SELFPAY ==
[2020-10-20 14:19] LABS: Abs Immature Grans 0.04 10^3/uL (0.0-0.06); Absolute Basophil Count 0.03 10^3/uL (0.0-0.2); Absolute Eosinophil Count 0.07 10^3/uL (0.0-0.7); Absolute Lymphocyte Count 1.77 10^3/uL (1.2-3.4); Absolute Monocyte Count 0.48 10^3/uL (0.1-0.8); Basophils % 0.4; Eosinophils % 0.9; HCT 45.6 % (40.0-50.0); HGB 15.5 g/dL (13.5-17.5); Immature Grans % 0.5; Lymphocytes % 21.9; MCV 88.2 fL (80-95); MPV 12.3 fL (8.0-11.0); Monocytes % 5.9; Neutrophils % 70.4; Nucleated RBC 0 %; Platelet Count 171 10^3/uL (130-400); RBC 5.17 10^6/uL (4.36-5.78); RDW-SD 39.2 fL; WBC 8.09 10^3/uL (4.4-10.8)
[2020-10-20 14:49] LABS: Anion Gap 7.7 mmol/L (3-11); BUN 12 mg/dL (7-18); CO2 27.3 mmol/L (21.0-32.0); Calcium 9.3 mg/dL (8.5-10.1); Calculated LDL 138 mg/dL (<100); Chloride 97 mmol/L (98-107); Cholesterol 209 mg/dL (<200); Glucose 225 mg/dL (74-106); HDL Cholesterol 48 mg/dL (40-60); Sodium 132 mmol/L (136-145); Triglyceride 115 mg/dL (<150)
[2020-10-20 15:01] LABS: COMMENT (LAB VIEW ONLY) 95.92 mg/dL
[2020-10-20 15:03] LABS: Microalb ug/mg Crea 240.3 ug/mg Cr
== END 2020-10-20 15:36 ==
LOC: NCHCN 15:16
PROVIDERS: PCP Nurse Practitioner; Visit Provider Family Medicine
DX: R06.09 Other forms of dyspnea (principal); I10 Essential (primary) hypertension; E11.9 Type 2 diabetes mellitus without complications; Z13.220 Encounter for screening for lipoid disorders
CPT/HCPCS: 80048; 80061; 82043; 82570; 85025

== ENCOUNTER 2020-10-23 01:49 | Outpatient (CLI) | payer MEDICAID, SELFPAY ==
--- NOTE | 2020-10-23 12:15 | DI.US_ITS ---
APPROVED REPORT EXAM: Comprehensive 2D, Doppler, and color-flow Echocardiogram Patient Location: Out-Patient Hydraulic Operator: Cindy Panda RDCS (AE) Indications: Dry cough, Dyspnea on Exertion Other Information Study Quality: Fair. Technically limited study due to body habitus. Conclusion Left Ventricle : The left ventricle is normal size. The left ventricular systolic function is normal. The left ventricular ejection fraction is within the normal range. There is normal left ventricular wall thickness. There is normal LV segmental wall motion. The left ventricular diastolic function is normal. LVEF is 50% Right Ventricle : The right ventricle is normal size. The right ventricular systolic function is norm al. Atria : The left atrium size is normal. The right atrium size is normal. Valves: There are no hemodynamically significant valvular lesions. Great Vessels : The aortic root is normal in size. The ascending aorta is normal in size. Aortic arch is not well visualized. IVC is normal in size and collapses >50% with inspiration. Please see remainder of study for further details. Wall motion Left Ventricle The left ventricle is normal size. The left ventricular systolic function is normal. The left ventric ular ejection fraction is within the normal range. There is normal left ventricular wall thickness. T here is normal LV segmental wall motion. The left ventricular diastolic function is normal. There is no ventricular septal defect visualized. LVEF is 50% Right Ventricle The right ventricle is normal size. The right ventricular systolic function is normal. Atria The left atrium size is normal. The right atrium size is normal. The interatrial septum is intact wit h no evidence for an atrial septal defect. Aortic Valve The aortic valve is normal in structure. Aortic valve is trileaflet. There is no aortic valvular sten osis. No aortic regurgitation is present. Mitral Valve Mild mitral annular calcification. No evidence of mitral valve stenosis. Trace mitral regurgitation. Tricuspid Valve The tricuspid valve is normal in structure. There is no tricuspid valve stenosis. Trace tricuspid reg urgitation. Unable to assess PA pressure. Pulmonic Valve The pulmonary valve is normal in structure. There is no pulmonic valvular stenosis. There is no pulmo yossi valvular regurgitation. Great Vessels The aortic root is normal in size. The ascending aorta is normal in size. Aortic arch is not well vis ualized. IVC is normal in size and collapses >50% with inspiration. Pericardium There is no pericardial effusion. 2D Dimensions IVSD d PLAX 0.91 cm M: 0.6-1.2 LV Vol A2C d MOD 138.6 mL LVPW d PLAX 0.99 cm M: 0.6 - 1.2 LV Vol A4C d MOD 104.1 mL LVID d PLAX 4.03 cm M: 4.2 - 5.8 LA vol/ BSA A2C s A-L 17.9 mL/m2 LVDs 2.95 cm M: 2.5 - 4.0 LA vol/ BSA A4C s A-L 26.2 mL/m2 Ao Root d 3.12 cm M: 3.1 - 3.7 LA Vol/ BSA Biplane s A-L 23.3 mL/m2 RA Area A4C 12.77 cm2 LA Area A4C s MOD 19.20 cm2 RA Vol/ BSA A4C s A-L 16.2 mL/m2 LA Area A2C s MOD 14.78 cm2 Ao Asc Diam d 2.99 cm M: 2.6 - 3.4 LV EF A4C MOD 46.5 % LV EF Teichholz 50.8 % LV EF A2C MOD 50.3 % LVEF (Carmen's) 44.91 % M: 52 - 72 LV EF Biplane MOD 44.9 % LV Volume 89.53 mL M: 62 - 150 SV 55.53 mL LV Volume Index 40.14 mL/m2 M: 34 - 74 SV Index 24.88 mL/m2 LV Vol Biplane MOD 123.7 mL FS 25.50 % M-Mode TAPSE 1.86 cm (M/F) >1.7 LV Diastology MV E' medial 0.088 (>0.07 m/s) E/A Ratio 1.0 LV E/e MED 7.95 (<14) MV E Vmax 0.70 (0.4-1.3 m/s) MV E' lateral 0.131 (>0.1 m/s) MV A Vmax 0.70 (0.4-1.3 m/s) LV E/e LAT 5.35 (<14) MV E/A Ratio 1.00 MV E/E' medial 7.96 MV E/E' lateral 5.36 Aortic Valve LVOT Area 3.47 cm2 AoV Area Vmax 2.64 cm2 LVOT Vmax 1.14 m/s AoV Area/ BSA (Vmax) 1.18 cm2/m2 LVOT Mean Chi. 0.74 m/s JELENA Mean Chi. 2.37 cm2 LVOT Peak Grad 5.2 mmHg JEELNA Mean Chi. Index 1.06 cm2/m2 LVOT Mean Grad 2.6 mmHg LVOT VTI 0.204 m LVOT Diam s 2.10 cm AoV Vmax 1.50 m/s Velocity Ratio 0.76 AoV Mean Chi. 1.09 m/s AoV Peak Grad 9.0 mmHg LVOT SV 70.81 mL AoV Mean Grad 5.1 mmHg AoV VTI 0.257 m AoV Area VTI 2.76 cm2 AoV Area/ BSA (VTI) 1.24 cm/m2 Mitral Valve MV DT 232 (160-240 msec) MV PHT 67 msec MV Area PHT 3.27 cm2 MV VTI 0.209 m MV Area VTI 3.39 (4.0-6.0 cm2) Pulmonary Valve PV Vmax 1.41 (0.5-1.5 m/s) RVOT Peak Gr. 2.78 mmHg PV Peak Grad 8.0 mmHg RVOT Mean Gr. 1.30 mmHg PV Mean Grad 4.2 mmHg RVOT VTI 0.164 m PV VTI 0.242 m RVOT Vmax 0.83 m/s
== END 2020-10-23 02:09 ==
PROVIDERS: PCP Nurse Practitioner; Visit Provider Family Medicine
DX: R06.09 Other forms of dyspnea (principal); R05 Cough
CPT/HCPCS: 93306

== ENCOUNTER 2020-11-17 01:10 | Outpatient (CLI) | payer MEDICAID, SELFPAY ==
--- NOTE | 2020-11-17 11:00 | DI.NM_ITS ---
APPROVED REPORT Exam: Pharmacologic Patient Location: Out-Patient Room/Bed: Stress Nurse: Justine Abbott RN Ordering Provider:PROSPER JAMA, Contact Number: [phone] BMI: 37.92 Baseline Rhythm: Sinus Rhythm Comment: incomplete BBB Indications: Dyspnea on exertion. Medical History Medical History: GERD, DM, Vestibular disease, HTN, HLD, COPD Cardiac Medications: Omeprazole, Chlorthalidone, Jardiance, Lisinopril, Victoza, Lantus. Allergies: Esomeprazole. Cardiac Risk Factors: HTN, Hyperlipidemia, Diabetes (insulin), FHX of CAD, Smoking (former), COPD, Ob esity Previous Cardiac Procedures: None. Pretest Chest Pain Characteristics: Dyspnea Exercise History: Sedentary Physical Disabilities: Ankle pain. Lung Sounds: CTA, upper airway wheezing present Heart Sounds: Regular Stress Test Details Test: Exercise stress converted to pharmacologic stress due to failure to obtain a diagnostic stress test. Reason for pharmacologic stress test: physical limitation. Nuclear Acquisition: Rest Tc-99m/Stress Tc-99m 1 day Rest Isotope: Tc-99m Sestamibi. Dose: 14.0 Date: 11/17/2020 Injection Time: 1125 Stress Isotope: Tc-99m Sestamibi. Dose: 46.0 Date: 11/17/2020 Injection Time: 1315 HR Resting HR Supine: 90 bpm Max Heart Rate (APMHR): 172 bpm Resting HR Standin bpm Target HR (85% APMHR): 146 bpm Max HR Achieved: 111 bpm % of APMHR: 64 Recovery HR: 101 bpm HR response to stress: Normal HR response to stress BP Resting BP Supine: 150/92 mmHg Resting BP Standin/90 mmHg Max BP: 156/90 mmHg Recovery BP: 150/90 mmHg BP response to stress: Normal blood pressure response to stress. ECG Resting ECG: Sinus Rhythm, incomplete BBB Ectopy: None. Stress ECG: Sinus Tachycardia ST Change: No significant ST segment changes noted Arrhythmia: None Recovery ECG: Sinus Tachycardia Recovery ST Change: No significant ST segment changes noted Recovery Arrhythmia: None Clinical Reason for Termination: Ankle pain. Stress Symptoms: Chest tightness, Headache. Exercise duration: 1 min34 sec Highest Stage Reached: Stage 1: 1.7 mph at 10% grade. Exercise capacity: 3.73 METs Rate Pressure Product: 52820 Stress ECG Conclusion 1. This is an exercise stress test converted to a pharmacological as the patient cannot exercise due to ankle pain. 2. The EKG portion of this exam is nondiagnostic. Stress Test Summary STAGE Time (mins) Speed (mph) Grade (%) HR BP SYMPTOMS METS Supine 90 150/92 Standing 97 156/90 1 min post Lexiscan injection 110 140/82 3/10 chest tightness, flushed, headache. 3 min post Lexiscan injection 103 148/86 Symptoms resolved. 6 min post Lexiscan injection 101 150/90 MPI Conclusion The patient's ejection fraction was 48% with stress. There was a small area of fixed perfusion defect at the apex likely representing artifact. This likely represents a normal SPECT stress test.
[2020-11-17] MEDS: Regadenoson 0.4 MG/5 ML SYR IVP (13:21)
== END 2020-11-17 01:11 ==
LOC: DI 01:10
PROVIDERS: PCP Nurse Practitioner; Visit Provider Nurse Practitioner
DX: R06.09 Other forms of dyspnea (principal); I10 Essential (primary) hypertension; E78.5 Hyperlipidemia, unspecified; E11.9 Type 2 diabetes mellitus without complications; Z79.4 Long term (current) use of insulin
CPT/HCPCS: 78452; 93017; J2785

== ENCOUNTER 2022-01-08 22:00 | Outpatient (REF) | payer MEDICAID, SELFPAY ==
[2022-01-08 22:19] LABS: Abs Immature Grans 0.02 10^3/uL (0.0-0.06); Absolute Basophil Count 0.02 10^3/uL (0.0-0.2); Absolute Eosinophil Count 0.07 10^3/uL (0.0-0.7); Absolute Monocyte Count 0.46 10^3/uL (0.1-0.8); Absolute Neutrophil Count 5.29 10^3/uL (1.2-6.7); Basophils % 0.3; Eosinophils % 0.9; HCT 46.1 % (40.0-50.0); Immature Grans % 0.3; Lymphocytes % 23.5; MCH 28.5 pg (27.0-33.0); MCHC 32.5 % (32.0-36.0); MCV 87.5 fL (80-95); MPV 12.7 fL (8.0-11.0); Platelet Count 182 10^3/uL (130-400); RBC 5.27 10^6/uL (4.36-5.78); RDW 12.4 % (11.8-14.1); RDW-SD 39.5 fL; WBC 7.66 10^3/uL (4.4-10.8)
[2022-01-08 22:42] LABS: Anion Gap 6.4 mmol/L (3-11); BUN 14 mg/dL (7-18); CO2 29.6 mmol/L (21.0-32.0); CREATININE 0.9 mg/dL (0.70-1.30); Calcium 8.8 mg/dL (8.5-10.1); Chloride 99 mmol/L (98-107); Glucose 321 mg/dL (74-106); Potassium 3.7 mmol/L (3.5-5.1); Sodium 135 mmol/L (136-145); TSH 0.51 uIU/mL (0.36-3.74)
[2022-01-10 10:58] LABS: COVID-19 RT-PCR UVMMC Result Negative (Negative)
== END 2022-01-08 22:01 | disposition home or self-care (01) ==
LOC: LBN 22:00
PROVIDERS: PCP Nurse Practitioner; Visit Provider Physician Assistant Medical
DX: J06.9 Acute upper respiratory infection, unspecified (principal); R07.89 Other chest pain; Z20.822 Contact with and (suspected) exposure to COVID-19
CPT/HCPCS: 80048; U0003; 84443; 85025

== ENCOUNTER 2022-05-26 16:18 | Outpatient (REF) | payer MEDICAID, SELFPAY ==
[2022-05-27 17:53] LABS: Albumin ug/mg Crea 50 (<30); Albumin, Ur 1.7 mg/dL (See Note); Creatinine, Ur 33.7 mg/dL (See Note)
== END 2022-05-26 16:19 | disposition home or self-care (01) ==
LOC: NCHCN 16:18
PROVIDERS: PCP Nurse Practitioner; Visit Provider Physician Assistant
DX: E11.9 Type 2 diabetes mellitus without complications (principal)
CPT/HCPCS: 82043; 82570

== ENCOUNTER 2022-07-26 15:25 | Outpatient (REF) | payer MEDICAID, SELFPAY ==
[2022-07-26 15:40] LABS: HCT 42.8 % (40.0-50.0); HGB 14.2 g/dL (13.5-17.5); MCH 29.2 pg (27.0-33.0); MCHC 33.2 % (32.0-36.0); MCV 88 fL (80-95); MPV 12.7 fL (8.0-11.0); Platelet Count 192 10^3/uL (130-400); RBC 4.87 10^6/uL (4.36-5.78); RDW 12.5 % (11.8-14.1); RDW-SD 40.5 fL; WBC 7.53 10^3/uL (4.4-10.8)
[2022-07-26 15:55] LABS: ALT 42 U/L (16-63); AST 29 U/L (15-37); Albumin 3.6 g/dL (3.4-5.0); Alkaline Phosphatase 89 U/L (46-116); Anion Gap 8.8 mmol/L (3-11); BUN 13 mg/dL (7-18); CO2 29.2 mmol/L (21.0-32.0); CREATININE 0.8 mg/dL (0.70-1.30); Calcium 9.3 mg/dL (8.5-10.1); Calculated LDL 66 mg/dL (<100); Chloride 101 mmol/L (98-107); Cholesterol 136 mg/dL (<200); Estimated GFR 107.82 (mL/min/1.73m2); Glucose 254 mg/dL (74-106); HDL Cholesterol 52 mg/dL (40-60); Potassium 3.9 mmol/L (3.5-5.1); Sodium 139 mmol/L (136-145); Total Protein 7.3 g/dL (6.4-8.2); Triglyceride 93 mg/dL (<150)
[2022-07-26 18:08] LABS: Hemoglobin A1C 9.6 % (<5.7)
== END 2022-07-26 15:26 | disposition home or self-care (01) ==
LOC: NCHCN 15:25
PROVIDERS: PCP Nurse Practitioner; Visit Provider Physician Assistant
DX: I10 Essential (primary) hypertension (principal); E11.9 Type 2 diabetes mellitus without complications
CPT/HCPCS: 80053; 80061; 85027; 83036

== ENCOUNTER 2022-12-16 09:16 | Emergency (ER) | payer MEDICAID, SELFPAY ==
[2022-12-16] VITALS (15 sets, daily range): BP systolic 115–157; BP diastolic 74–94; PULSE 85–107; RESP 18; TEMP 36.1–36.9; O2SAT 92–98
--- NOTE | 2022-12-16 09:45 | RT.EKG_ITS ---
APPROVED REPORT Exam: Resting ECG Reason for Exam: weakness Patient Location: E HR:97 bpm ECG Measurements Heart Rate 97 AXIS IA 162 P 82 QRSd 116 QRS -44 QT 343 T 70 QTc 436 Conclusion Sinus rhythm...normal P axis, V-rate 60- 99 Left anterior fascicular block...axis(240,-40), init forces inf Probable left ventricular hypertrophy...(RaVL+SV3)xQRSd >280 ST elev, probable normal early repol pattern...ST elevation, age<55 sinus rhythm, lef axis, likely LBBB unchanged
--- NOTE | 2022-12-16 09:45 | DI.MRI_ITS ---
Exam(s) MR BRAIN WO EXAM: MR BRAIN WO CLINICAL HISTORY: left sided vision loss and left sided weakness TECHNIQUE: Multiplanar multisequence MRI of the brain was performed. COMPARISON: No priors for comparison. FINDINGS: VENTRICLES AND EXTRA AXIAL SPACES: Normal in size and morphology for the patient's age. MIDLINE SHIFT: None. CEREBRAL PARENCHYMA: No focus of restricted diffusion to suggest acute infarct. No space-occupying le avni identified. There are multiple foci of hyperintense signal seen in the white matter on the FLAIR and T2 weighted images most consistent with small vessel ischemic disease. HEMORRHAGE: None. BRAINSTEM/CEREBELLUM: Normal. CALVARIUM: Normal. VISUALIZED PARANASAL SINUSES/MASTOIDS:There is mild mucosal thickening some of the visualized paranas al sinuses. HO-CHUNK OF OSORIO: Normal flow void. PITUITARY GLAND: Unremarkable. OTHER FINDINGS: The orbits and retro-orbital soft tissues are grossly unremarkable. IMPRESSION: 1. No evidence of an acute infarct. 2. Findings were discussed with Rubi Lorenzo on 12/16/2022. DATA REPOSITORY:
--- NOTE | 2022-12-16 09:45 | DI.RAD_ITS ---
Exam(s) XR PORTABLE CHEST AP EXAM: XR PORTABLE CHEST AP CLINICAL HISTORY: left sided weakness, cva TECHNIQUE: 2D digital imaging was performed of the chest. One image was obtained. An AP view was ob tained. COMPARISON: CR,XR XR CHEST 2V PA LATERAL from 09/13/2020 FINDINGS: MEDIASTINUM: Normal. HEART: Normal. PULMONARY VASCULATURE: Normal. LUNGS: Clear. PLEURAL SPACE: No pleural effusion or pneumothorax. BONE:Within normal limits for the patient's age. OTHER FINDINGS:Normal. IMPRESSION: No acute pulmonary findings. DATA REPOSITORY: RADIATION DOSE DELIVERED:
--- NOTE | 2022-12-16 09:49 | DI.MRI_ITS ---
Exam(s) MR ANGIO NECK WO EXAM: MR ANGIO NECK WO CLINICAL HISTORY: left sided weakness, vision loss. TECHNIQUE: Multiplanar multisequence MRA of the Neck was performed. COMPARISON: No exams were available for comparison FINDINGS: The examination is limited due to patient motion artifact. Common Carotid: Right: No dissection, occlusion or significant stenosis. Left: No dissection, occlusion or significant stenosis. External Carotid: Right: No evidence of occlusion or significant stenosis. Left: No evidence of occlusion or significant stenosis. Internal Carotid: Right: No dissection, occlusion or significant stenosis. Left: No dissection, occlusion or significant stenosis. Vertebral Artery: Right: No dissection, occlusion or significant stenosis. Left: No dissection, occlusion or significant stenosis. The visualized paraspinal soft tissues are unremarkable. IMPRESSION: 1. No evidence of dissection, occlusion or significant stenosis. 2. Findings were discussed with Whitney Lorenzo on 12/16/2022. DATA REPOSITORY:
--- NOTE | 2022-12-16 09:49 | DI.MRI_ITS ---
Exam(s) MR ANGIO BRAIN WO CLINICAL HISTORY: left sided weakness and vision loss. TECHNIQUE: Multiplanar multisequence MRA of the brain was performed. COMPARISON: None. FINDINGS: Carotid Arteries: No aneurysm, occlusion or significant stenosis. Anterior Cerebral Arteries: Right: No aneurysm, occlusion or significant stenosis. Left: No aneurysm, occlusion or significant stenosis. Middle Cerebral Arteries: Right: No aneurysm, occlusion or significant stenosis. Left: No aneurysm, occlusion or significant stenosis. Posterior Cerebral Arteries: Right: No aneurysm, occlusion or significant stenosis. Left: No aneurysm, occlusion or significant stenosis. Vertebral Arteries: Right: No aneurysm, occlusion or significant stenosis. Left: No aneurysm, occlusion or significant stenosis. Basilar Artery: No aneurysm, occlusion or significant stenosis. IMPRESSION: 1. Normal MRA examination of the [place] of [place]. 2. Findings were discussed with the emergency department on 12/16/2022. DATA REPOSITORY:
[2022-12-16 10:21] LABS: Abs Immature Grans 0.03 10^3/uL (0.0-0.06); Absolute Basophil Count 0.03 10^3/uL (0.0-0.2); Absolute Eosinophil Count 0.11 10^3/uL (0.0-0.7); Absolute Lymphocyte Count 1.99 10^3/uL (1.2-3.4); Absolute Monocyte Count 0.55 10^3/uL (0.1-0.8); Absolute Neutrophil Count 5.81 10^3/uL (1.2-6.7); Basophils % 0.4; Eosinophils % 1.3; HGB 15.2 g/dL (13.5-17.5); Immature Grans % 0.4; Lymphocytes % 23.4; MCH 27.7 pg (27.0-33.0); MCHC 33.8 % (32.0-36.0); MCV 82 fL (80-95); MPV 12.1 fL (8.0-11.0); Monocytes % 6.5; Platelet Count 231 10^3/uL (130-400); RBC 5.48 10^6/uL (4.36-5.78); RDW 12.2 % (11.8-14.1); RDW-SD 36.9 fL; WBC 8.52 10^3/uL (4.4-10.8)
[2022-12-16 10:38] LABS: ALT 47 U/L (16-63); AST 28 U/L (15-37); Albumin 3.8 g/dL (3.4-5.0); Alkaline Phosphatase 92 U/L (46-116); Anion Gap 6.3 mmol/L (3-11); BUN 28 mg/dL (7-18); Bilirubin, Total 1.3 mg/dL (0.2-1.0); CO2 28.7 mmol/L (21.0-32.0); Calcium 9.5 mg/dL (8.5-10.1); Chloride 100 mmol/L (98-107); Estimated GFR 91.12 (mL/min/1.73m2); Glucose 248 mg/dL (74-106); Potassium 4.2 mmol/L (3.5-5.1); Sodium 135 mmol/L (136-145); Total Protein 7.8 g/dL (6.4-8.2)
[2022-12-16 10:41] LABS: Troponin I < 50 ng/L (<or=60)
[2022-12-16 13:00] LABS: C-Reactive Protein 0.39 mg/dL (0.0-0.3)
[2022-12-16 13:14] LABS: ESR 42 mm/hr (0-20)
[2022-12-16] MEDS: Timolol 0.5% 5 ML BTL OS (15:00)
[2022-12-16] MEDS: Latanoprost 0.005% 2.5 ML BTL OS (15:00)
[2022-12-16] MEDS: Fluorescein STRIPS 100/BOX 1 MG OP (15:01)
--- NOTE | 2022-12-16 15:19 | ED.GENADUL_ITS ---
Discharge Plan Disposition Patient Disposition: Home Condition: Stable Discharge Details Clinical Impression: Abnormal vision Primary Care Provider: Shana Ceballos ED Provider: Dale Garay Home Meds and New Rx's Prescriptions: Continued metoclopramide HCl 10 mg tablet 5 mg PO DAILY Patient Comments: 12/16/22: pt denies taking this med Rx Instructions: administer 30 minutes before meals chlorthalidone 25 mg tablet 25 mg PO DAILY albuterol sulfate [ProAir HFA] 90 mcg/actuation HFA aerosol inhaler 2 puff inhalation Q4H PRN Patient Comments: 12/16/22: states he does not tke Jardiance 25 mg tablet 25 mg PO DAILY atorvastatin [Lipitor] 20 MG tablet 20 mg PO HS omeprazole 40 MG capsule,delayed release(DR/EC) 40 mg PO DAILY lisinopril 10 MG tablet 30 mg PO HS insulin glargine [Lantus Solostar U-100 Insulin] 100 UNIT/ML insulin pen 70 units SQ HS Victoza 3-Seamus 0.6 mg/0.1 mL (18 mg/3 mL) pen injector 1.8 mg SUBCUT DAILY Patient Comments: 12/16/22: states he has been off this for a year Rx Instructions: lunch time sucralfate [Carafate] 1 gram tablet 1 gm PO QACHS Qty: 120 1RF Patient Comments: 12/16/22: pt states he hasnt taken this in a long time and it should be off his list Rx Instructions: Take 30 minutes before meals and at bedtime hydrochlorothiazide 12.5 mg tablet 12.5 mg PO DAILY Patient Comments: TK 2 TS PO D cholecalciferol (vitamin D3) [Vitamin D3] 25 mcg (1,000 unit) tablet 25 mcg PO DAILY Patient Comments: TK 1 T PO D ondansetron HCl [Zofran] 4 mg tablet 4 mg PO Q8H PRNQty: 10 0RF Discharge Instructions Additional Instructions: Please follow-up with ophthalmology, they will call you in the morning as you will need further assessment Continue on your prescribed meds and return immediately should you have new or worsening complaints Referrals: Shana Ceballos [Primary Care Provider] - Medical Decision Making 52-year-old male who presents with report of left blurred vision for the past 5 days, sent in by ophthalmology for further evaluation including MRI Secondary to left-sided weakness, left lower extremity weakness, I did order MRI MRA initially, patient was not aware that he is slightly weak on the left side He has no known or sensation and is ambulatory with steady gait with an otherwise nonfocal neurological exam MRI/MRA of head and neck did not show evidence of acute abnormality per radiology interpretation my review Blood glucose of 248 consistent with patient's history of diabetes, no evidence of diabetic ketoacidosis Patient is resting comfortably in room, vitals are stable Preparing to perform LP, however no intraocular pressure of 25, glaucoma meds ordered by Dr. Jason Alcantar for further assessment discussed findings with Dr Estrada, optometry and if all results today negative, will f/u and refer to neuro ophthalmology for assessment I spent 10 minutes reviewing pt's thorough evaluation from opthalmology visit Pending lumbar puncture at this time to evaluate for elevated opening pressures and CSF Dr. Jason Alcantar will perform lumbar puncture, please see his documentation Patient is resting comfortably, no change and blurred vision with administration of glaucoma medications Care be transitioned to Dr. Jason Alcantar pending CSF lab return close outpatient follow-up with [facility] tomorrow HPI General Date/Time Provider Initiated Documentation: 12/16/22 09:33 . HPI Narrative: This 52-year-old male with history of glaucoma, hyperlipidemia, alcohol abuse, hypertension presents with report of vision loss in his left eye consisting of blurred vision for the past week. He states he is evaluated by ophthalmology yesterday and had testing including ocular pressures. Denies any change in symptoms. Was told to come to the emergency department last night for assessment but could not secondary to home commitments. Denies any associated headache. Denies fever or chills. Denies head trauma. States he is taking all of his medications as prescribed. Related Data Home Medications Medication Instructions Recorded Confirmed atorvastatin 20 mg tablet (Lipitor) 20 mg PO HS 06/25/16 12/16/22 insulin glargine 100 unit/mL (3 70 units SQ HS 06/25/16 12/16/22 mL) subcutaneous pen (Lantus Solostar U-100 Insulin) lisinopril 10 mg tablet 30 mg PO HS 06/25/16 12/16/22 omeprazole 40 mg capsule,delayed 40 mg PO DAILY 06/25/16 12/16/22 release liraglutide 0.6 mg/0.1 mL (18 mg/3 1.8 mg subcut DAILY 04/11/20 05/13/21 mL) subcutaneous pen injector (Victoza 3-Seamus) cholecalciferol (vitamin D3) 25 25 mcg PO DAILY 04/25/20 12/16/22 mcg (1,000 unit) tablet (Vitamin D3) hydrochlorothiazide 12.5 mg tablet 12.5 mg PO DAILY 04/25/20 12/16/22 ondansetron HCl 4 mg tablet 4 mg PO Q8H PRN #10 tabs 04/25/20 12/16/22 (Zofran) sucralfate 1 gram tablet (Carafate) 1 gm PO QACHS #120 tabs 05/13/20 05/13/21 albuterol sulfate 90 mcg/actuation 2 puff inhalation Q4H PRN 04/23/21 aerosol inhaler (ProAir HFA) chlorthalidone 25 mg tablet 25 mg PO DAILY 04/23/21 12/16/22 empagliflozin 25 mg tablet 25 mg PO DAILY 04/23/21 12/16/22 (Jardiance) metoclopramide HCl 10 mg tablet 5 mg PO DAILY 04/23/21 Previous Rx's Medication Instructions Recorded ondansetron HCl 4 mg tablet 4 mg PO Q8H PRN #10 tabs 04/25/20 (Zofran) sucralfate 1 gram tablet (Carafate) 1 gm PO QACHS #120 tabs 05/13/20 Allergies Allergy/AdvReac Type Severity Reaction Status Date / Time esomeprazole [From Nexium] AdvReac stomach Verified 12/16/22 09:26 cramps metformin AdvReac Upset Verified 12/16/22 09:26 stomach General Stated Complaint: EyeProblem SHARLENE: 3 PFSH All Active Problems (Updated 12/16/22 @ 16:21 by SANDEEP Aguilar) Abnormal vision (Acute) Conductive hearing loss, external ear (Acute) Impacted cerumen, bilateral (Acute) Hx of carpal tunnel syndrome (Acute) Hearing loss (Acute) Amblyopia of right eye (Acute) Ocular hypertension (Acute) Glaucoma (Chronic) Hyperlipemia (Acute) Syncope (Chronic) Adjustment disorder with depressed mood (Acute) Grief reaction (Chronic) Alcohol abuse (Chronic) Dry cough (Acute) Dyspnea on exertion (Acute) Obstructive sleep apnea syndrome, mild (Acute) Microalbuminuria (Acute) Charcot's joint of foot (Acute) Gastroparesis due to DM (Acute) Vertigo (Acute) Impacted cerumen (Acute) Decreased hearing of left ear (Acute) Reyes's esophagus (Acute ~04/2020) 05/13/20 w/ Dr. Anna Harrison, repeat 1 year Gastritis (Acute) Medical History Abnormal EKG Adjustment disorder with depressed mood Alcohol abuse Amblyopia of right eye Charcot's joint of foot Decreased hearing of left ear Diabetes Dry cough Dyspnea on exertion Gastroparesis due to DM GERD (gastroesophageal reflux disease) Glaucoma Grief reaction Hearing loss Hx of carpal tunnel syndrome Hypercholesteremia Hyperlipemia Hypertension Impacted cerumen Microalbuminuria Obstructive sleep apnea syndrome, mild Ocular hypertension Syncope Vertigo Surgical History History of shoulder surgery Hx of colonoscopy Hx of esophagogastroduodenoscopy Family History Other Alzheimers disease Cancer Diabetes Heart disease Hypertension Social History Smoking/Tobacco Use Status: Former Tobacco Use Quit Date: 04/26/19 Smoking risk assessment performed?: Yes Alcohol Intake: former Drug use: Occasionally Substance use type: marijuana Household members: spouse Pets and animals: Yes Pets and animals: cat(s) and guinea pig(s) What is your relationship status?: Panel score (0-1 are the most socially isolated patients): 1 Do you feel safe at home: Yes Do you feel safe in your relationship?: Yes Exam Const General: cooperative, comfortable and no acute distress HENMT Head: normal to inspection Mouth: oral mucosae normal Eyes Pupils: PERRL EOM: EOM intact bilaterally Neck Other: no carotid bruit Resp Effort & Inspection: normal respiratory effort Cardio Rate: regular rate Neuro General: patient alert and patient oriented x3 Cranial Nerves: CN's II-XI intact bilaterally Cognition: normal cognition Speech: speech normal Gait: normal gait Course Vital Signs Vital signs: Vital Signs Temperature 36.9 C 12/16/22 09:22 Pulse 107 H 12/16/22 09:22 Respiratory Rate 18 12/16/22 09:22 Blood Pressure 157/94 H 12/16/22 09:22 Pulse Oximetry 94 12/16/22 09:22 Temperature 36.1 C L 12/16/22 15:14 Temperature Source Oral 12/16/22 09:22 Pulse 101 H 12/16/22 15:14 Pulse 86 12/16/22 11:00 Respiratory Rate 18 12/16/22 09:22 Respiratory Effort Normal 12/16/22 09:31 Blood Pressure 115/77 12/16/22 15:14 Pulse Oximetry 95 12/16/22 15:14 Oxygen Delivery Method Room Air 12/16/22 15:14 Oxygen Flow Rate 0 12/16/22 15:14 Pain Level 0 12/16/22 15:14 Lab/Test Results Lab/Test Results: Laboratory Tests Range/Units 12/16/22 12/16/22 12/16/22 10:15 10:15 10:15 WBC (4.4-10.8) 10^3/uL 8.52 RBC (4.36-5.78) 10^6/uL 5.48 Hgb (13.5-17.5) g/dL 15.2 Hct (40.0-50.0) % 45.0 MCV (80-95) fL 82 MCH (27.0-33.0) pg 27.7 MCHC (32.0-36.0) % 33.8 RDW (11.8-14.1) % 12.2 Plt Count (130-400) 10^3/uL 231 MPV (8.0-11.0) fL 12.1 H Immature Gran % 0.4 Neutrophils % 68.0 Lymphocytes % 23.4 Monocytes % 6.5 Eosinophils % 1.3 Basophils % 0.4 Nucleated RBC % (0.0-0.3) % 0.0 Absolute Neutrophils (1.2-6.7) 10^3/uL 5.81 Absolute Lymphocytes (1.2-3.4) 10^3/uL 1.99 Absolute Monocytes (0.1-0.8) 10^3/uL 0.55 Absolute Eosinophils (0.0-0.7) 10^3/uL 0.11 Absolute Basophils (0.0-0.2) 10^3/uL 0.03 ESR (0-20) mm/hr Sodium (136-145) mmol/L 135 L Potassium (3.5-5.1) mmol/L 4.2 Chloride (98-107) mmol/L 100 Carbon Dioxide (21.0-32.0) mmol/L 28.7 Anion Gap (3-11) mmol/L 6.3 BUN (7-18) mg/dL 28 H Creatinine (0.70-1.30) mg/dL 1.0 Est GFR (CKD-EPI 2020) (mL/min/1.73m2) 91.12 Glucose (74-106) mg/dL 248 H Calcium (8.5-10.1) mg/dL 9.5 Total Bilirubin (0.2-1.0) mg/dL 1.3 H AST (15-37) U/L 28 ALT (16-63) U/L 47 Alkaline Phosphatase (46-116) U/L 92 Troponin I (<or=60) ng/L < 50 C-Reactive Protein (0.0-0.3) mg/dL Total Protein (6.4-8.2) g/dL 7.8 Albumin (3.4-5.0) g/dL 3.8 Range/Units 12/16/22 12/16/22 10:15 10:15 WBC (4.4-10.8) 10^3/uL RBC (4.36-5.78) 10^6/uL Hgb (13.5-17.5) g/dL Hct (40.0-50.0) % MCV (80-95) fL MCH (27.0-33.0) pg MCHC (32.0-36.0) % RDW (11.8-14.1) % Plt Count (130-400) 10^3/uL MPV (8.0-11.0) fL Immature Gran % Neutrophils % Lymphocytes % Monocytes % Eosinophils % Basophils % Nucleated RBC % (0.0-0.3) % Absolute Neutrophils (1.2-6.7) 10^3/uL Absolute Lymphocytes (1.2-3.4) 10^3/uL Absolute Monocytes (0.1-0.8) 10^3/uL Absolute Eosinophils (0.0-0.7) 10^3/uL Absolute Basophils (0.0-0.2) 10^3/uL ESR (0-20) mm/hr 42 H Sodium (136-145) mmol/L Potassium (3.5-5.1) mmol/L Chloride (98-107) mmol/L Carbon Dioxide (21.0-32.0) mmol/L Anion Gap (3-11) mmol/L BUN (7-18) mg/dL Creatinine (0.70-1.30) mg/dL Est GFR (CKD-EPI 2020) (mL/min/1.73m2) Glucose (74-106) mg/dL Calcium (8.5-10.1) mg/dL Total Bilirubin (0.2-1.0) mg/dL AST (15-37) U/L ALT (16-63) U/L Alkaline Phosphatase (46-116) U/L Troponin I (<or=60) ng/L C-Reactive Protein (0.0-0.3) mg/dL 0.39 H Total Protein (6.4-8.2) g/dL Albumin (3.4-5.0) g/dL Sign Out Sign Out Data: Sign Out Comment: pending csf Last updated by Whitney Lorenzo PA at 12/16/22 16:28
[2022-12-16] MEDS: Lidocaine 1% Pres-Free 5 ML VIAL (16:05)
[2022-12-16 16:52] LABS: Glucose (CSF) 107 mg/dL (40-70); Total Protein (CSF) 40 mg/dL (15-45)
--- NOTE | 2022-12-16 16:57 | NUR.NOTE ---
pt provided with meal tray Nursing Note:
[2022-12-16 17:44] LABS: Clarity Clear; Tube # 4
[2022-12-16 17:45] LABS: RBC 0 /mm3 (0-5); WBC 1 /uL (0-5); Xanthochromia Absent
--- NOTE | 2022-12-16 17:52 | DI.VRAD_ITS ---
PROCEDURE INFORMATION: Exam: XR Chest Exam date and time: 12/16/2022 4:42 PM Age: 52 years old Clinical indication: Other: Left sided weakness, CVA TECHNIQUE: Imaging protocol: Radiologic exam of the chest. Views: 1 view. COMPARISON: CR XR CHEST 2V PA LATERAL 09/13/2020 12:10 PM FINDINGS: Lungs: There is new mild central peribronchial thickening. No pulmonary parenchymal airspace opacities are identified. There is no pulmonary vascular congestion. Pleural spaces: There are no pleural effusions present. There is no evidence of pneumothorax. Heart/Mediastinum: The cardiomediastinal silhouette is within normal limits. Bones/joints: Unremarkable. IMPRESSION: 1. New mild central peribronchial thickening could reflect bronchitis. 2. No pulmonary parenchymal airspace opacities identified. Dictated and Authenticated by: Harris Connolly MD. Ordering:EDMUND Olson MD
--- NOTE | 2022-12-16 18:17 | W.EDPROG ---
Date of service: 12/16/22 Time of Service: 18:17 Medical Decision Making 52-year-old male history of glaucoma sent in by [facility] for evaluation of left visual changes, normal fluorescein stain, intraocular pressure of left eye 25, was given empiric timolol latanoprost eyedrops without improvement of symptoms, spoke with ophthalmology as well as neurology team who both recommend LP to assess opening pressure, LP was performed opening pressure 18. Clear CSF no xanthochromia no WBCs. Pending Gram stain. Patient will be discharged home with close neuro and ophtho follow-up 18: 49 Gram stain negative, patient to follow-up with ophthalmology and neurology Procedures Lumbar Puncture Time Out Performed: Yes Patient Position: sitting upright/leaning forward Skin Prep: Povidone-Iodine 1% Local Anesthetic: Lidocaine 1% Amount of anesthesia used (mL): 5 Spinal Needle Gauge: 22G Interspace Used: L4-L5 Opening Pressure (cmH20): 18 Fluid Initially Obtained: clear Complications: none Sign Out Sign Out Data: Sign Out Comment: pending csf Last updated by Whitney Lorenzo PA at 12/16/22 16:28 Discharge Plan Disposition Patient Disposition: Home Condition: Stable Discharge Details Clinical Impression: Abnormal vision Primary Care Provider: Shana Ceballos ED Provider: Dale Garay Home Meds and New Rx's Prescriptions: Continued metoclopramide HCl 10 mg tablet 5 mg PO DAILY Patient Comments: 12/16/22: pt denies taking this med Rx Instructions: administer 30 minutes before meals chlorthalidone 25 mg tablet 25 mg PO DAILY albuterol sulfate [ProAir HFA] 90 mcg/actuation HFA aerosol inhaler 2 puff inhalation Q4H PRN Patient Comments: 12/16/22: states he does not tke Jardiance 25 mg tablet 25 mg PO DAILY atorvastatin [Lipitor] 20 MG tablet 20 mg PO HS omeprazole 40 MG capsule,delayed release(DR/EC) 40 mg PO DAILY lisinopril 10 MG tablet 30 mg PO HS insulin glargine [Lantus Solostar U-100 Insulin] 100 UNIT/ML insulin pen 70 units SQ HS Victoza 3-Seamus 0.6 mg/0.1 mL (18 mg/3 mL) pen injector 1.8 mg SUBCUT DAILY Patient Comments: 3/23/23: states he has been off this for a year Rx Instructions: lunch time sucralfate [Carafate] 1 gram tablet 1 gm PO QACHS Qty: 120 1RF Patient Comments: 12/16/22: pt states he hasnt taken this in a long time and it should be off his list Rx Instructions: Take 30 minutes before meals and at bedtime hydrochlorothiazide 12.5 mg tablet 12.5 mg PO DAILY Patient Comments: TK 2 TS PO D cholecalciferol (vitamin D3) [Vitamin D3] 25 mcg (1,000 unit) tablet 25 mcg PO DAILY Patient Comments: TK 1 T PO D ondansetron HCl [Zofran] 4 mg tablet 4 mg PO Q8H PRNQty: 10 0RF Discharge Instructions Additional Instructions: Please follow-up with ophthalmology, they will call you in the morning as you will need further assessment Continue on your prescribed meds and return immediately should you have new or worsening complaints Referrals: Shana Ceballos [Primary Care Provider] -
[2022-12-17 09:25] LABS: Differential CSF: Performed
== END 2022-12-16 18:54 | disposition home or self-care (01) ==
PROVIDERS: Physician Assistant; Emergency Provider Emergency Medicine; PCP Nurse Practitioner
DX: H53.8 Other visual disturbances (principal); R53.1 Weakness; E11.9 Type 2 diabetes mellitus without complications; I10 Essential (primary) hypertension
CPT/HCPCS: 36415; 70544; 70547; 80053; 82945; 85652; 89050; 89051; 93005; 99285; 70551; 71045; 84157; 84484; 85025; 86140; 87070; 87205; 93010; 99284

== ENCOUNTER 2023-04-06 14:06 | Outpatient (REF) | payer MEDICAID, SELFPAY ==
[2023-04-06 17:53] LABS: COMMENT (LAB VIEW ONLY) 77.38 mg/dL; Microalb ug/mg Crea 45.6 ug/mg Cr
== END 2023-04-06 14:07 | disposition home or self-care (01) ==
LOC: NCHCN 14:06
PROVIDERS: PCP Nurse Practitioner; Visit Provider Physician Assistant
DX: E11.9 Type 2 diabetes mellitus without complications (principal)
CPT/HCPCS: 82043; 82570

== ENCOUNTER 2023-07-28 03:26 | Outpatient (CLI) | payer MEDICAID, SELFPAY ==
--- NOTE | 2023-07-28 09:30 | DIABASSESS_ITS ---
Reason for Visit: Diabetes education Assessment: Mr. Gupta presents for medical nutrition therapy for diabetes. He reports that he has a history of trauma which makes it very difficult for him to eat well and to control his eating. He has not found a therapist yet. Mr. Gupta also reports that his sleep apnea is not under good control. He has an appointment with the sleep doctor next week. Mr. Gupta has recently, in the past two weeks, worked up to the optimal dose of his GLP-1. He has noticed significant improvement/decrease in his appetite. He stopped drinking alcohol a year ago. He had been drinking since he was 12 years old. His dietary recall shows that a typical day is a few pieces of salami for breakfast, a sandwich and some chips for lunch, and a cheeseburger with morales for dinner. He reports that he adds salt to everything even to morales and he wants to work on that too. In addition to his GLP-1 for diabetes, Mr. Gupta takes Lantus, Novolog, and Jardiance. His most recent A1C was over 10. Mr. Gupta reports that he is not as physically active as he used to be given his current weight. Intervention: We discussed that his poor diet, as he made clear that he knows, is just a symptom of his past trauma. Talked about MONE scores and the importance of him dealing with his trauma and then theoretically the food intake, diabetes management will fall in to place. We also discussed how sleep apnea is a driving factor that makes weight and diabetes management very difficult. To that end, strongly encouraged him to focus on working with a professional about his childhood traumas. However in the meantime, encouraged him to pick one thing about his eating to work on for the next couple of weeks. I reminded him that he does not have to fix it all at once. For example, the salt is not affecting his weight and diabetes directly so he can work on that after he gets some other things under control. In the next week, Mr. Gupta is going to improve the quality of his breakfast. He will have yogurt, fruit, eggs, smoothies etc. Monitoring and Evaluation: I will follow up with Mr. Gupta by phone in three weeks per his request versus coming back in to see me. We will evaluate his progress at that time and determine what further follow up would be important. Thank you for the referral.
== END 2023-07-28 03:27 | disposition home or self-care (01) ==
LOC: DS 03:27
PROVIDERS: PCP Nurse Practitioner; Visit Provider Dietitian, Registered
DX: E11.9 Type 2 diabetes mellitus without complications (principal)
CPT/HCPCS: 97802

== ENCOUNTER 2023-08-19 01:07 | Outpatient (CLI) | payer MEDICAID, SELFPAY ==
[2023-08-19 09:27] LABS: Abs Immature Grans 0.03 10^3/uL (0.0-0.06); Absolute Basophil Count 0.04 10^3/uL (0.0-0.2); Absolute Eosinophil Count 0.16 10^3/uL (0.0-0.7); Absolute Lymphocyte Count 2.12 10^3/uL (1.2-3.4); Absolute Monocyte Count 0.53 10^3/uL (0.1-0.8); Absolute Neutrophil Count 5.53 10^3/uL (1.2-6.7); Basophils % 0.5; Eosinophils % 1.9; HCT 46.5 % (40.0-50.0); HGB 15.7 g/dL (13.5-17.5); Immature Grans % 0.4; Lymphocytes % 25.2; MCH 28.2 pg (27.0-33.0); MCHC 33.8 % (32.0-36.0); MCV 84 fL (80-95); MPV 11.2 fL (8.0-11.0); Monocytes % 6.3; Neutrophils % 65.7; Platelet Count 202 10^3/uL (130-400); RBC 5.56 10^6/uL (4.36-5.78); RDW 12.5 % (11.8-14.1); RDW-SD 38.1 fL; WBC 8.41 10^3/uL (4.4-10.8)
[2023-08-19 09:45] LABS: ALT 37 U/L (16-63); AST 20 U/L (15-37); Albumin 3.4 g/dL (3.4-5.0); Alkaline Phosphatase 89 U/L (46-116); BUN 16 mg/dL (7-18); Bilirubin, Total 1.3 mg/dL (0.2-1.0); CREATININE 0.8 mg/dL (0.70-1.30); Calculated LDL 77 mg/dL (<100); Chloride 101 mmol/L (98-107); Cholesterol 132 mg/dL (<200); Estimated GFR 107.15 (mL/min/1.73m2); Glucose 118 mg/dL (74-106); HDL Cholesterol 42 mg/dL (40-60); Potassium 3.4 mmol/L (3.5-5.1); Sodium 137 mmol/L (136-145); Total Protein 7.6 g/dL (6.4-8.2); Triglyceride 67 mg/dL (<150)
== END 2023-08-19 01:08 | disposition home or self-care (01) ==
LOC: LBO 01:07
PROVIDERS: PCP Nurse Practitioner; Visit Provider Nurse Practitioner
DX: E11.40 Type 2 diabetes mellitus with diabetic neuropathy, unspecified (principal); E78.5 Hyperlipidemia, unspecified; I10 Essential (primary) hypertension
CPT/HCPCS: 36415; 80053; 80061; 85025

== ENCOUNTER 2023-08-24 09:17 | Day surgery (SDC) | payer MEDICAID, SELFPAY ==
--- NOTE | 2023-08-24 08:05 | ANES.PREOP_ITS ---
General Info Date of Service Date Performed: 08/24/23 Height: 5 ft 6.25 in Weight: 112.945 kg Body Mass Index (BMI): 39.9 Surgical Procedure: Operation Date: 08/24/23 10:35 Proposed Procedure Side Surgeon p Gastroscopy Shasha Redmond MD Meds Allergies and Home Medications Allergies Allergy/AdvReac Type Severity Reaction Status Date / Time semaglutide [From Rybelsus] AdvReac Intermediate dizzyness Verified 08/24/23 09:37 esomeprazole [From Nexium] AdvReac stomach Verified 08/24/23 09:37 cramps metformin AdvReac Upset Verified 08/24/23 09:37 stomach Home Medication Medication Instructions Recorded atorvastatin 20 mg tablet (Lipitor) 20 mg PO HS 06/25/16 lisinopril 10 mg tablet 30 mg PO HS 06/25/16 omeprazole 40 mg capsule,delayed 40 mg PO DAILY 06/25/16 release cholecalciferol (vitamin D3) 25 25 mcg PO DAILY 04/25/20 mcg (1,000 unit) tablet (Vitamin D3) hydrochlorothiazide 12.5 mg tablet 12.5 mg PO DAILY 04/25/20 chlorthalidone 25 mg tablet 25 mg PO DAILY 04/23/21 empagliflozin 25 mg tablet 25 mg PO DAILY 04/23/21 (Jardiance) insulin aspart U-100 100 unit/mL See Rx Instructions subcut TID 01/24/23 (3 mL) subcutaneous pen (Novolog FlexPen U-100 Insulin aspart) insulin glargine 100 unit/mL (3 80 unit subcut QAM 01/24/23 mL) subcutaneous pen (Lantus Solostar U-100 Insulin) blood sugar diagnostic (OneTouch #100 ea 07/18/23 Ultra Test strips) semaglutide 1 mg/dose (4 mg/3 mL) 1 mg (0.75 mL) subcut QWEEK #3 mL 07/18/23 subcutaneous pen injector (Ozempic) semaglutide 2 mg/dose (8 mg/3 mL) 2 mg (0.75 mL) subcut QWEEK #3 mL 07/18/23 subcutaneous pen injector (Ozempic) Current Visit Medications: Current Medications Generic Name Dose Route Start Last Admin Trade Name Freq PRN Reason Stop Dose Admin Ringer's Solution 1,000 mls @ 80 mls/hr 08/24/23 06:00 IV 08/24/23 23:59 INFUSION MOOSE IV Miscellaneous Supplies 1 each 08/24/23 06:00 Iv Access IV 08/24/23 23:59 DIRECTED MOOSE Sodium Chloride 0 ml 08/24/23 06:00 Normal Saline Flush 10 Ml Syr IV 08/24/23 23:59 PRN PRN Sodium Chloride 0 ml 08/24/23 06:00 Normal Saline 10 Ml Vial IJ 08/24/23 23:59 DIRECTED PRN Sterile Water 0 ml 08/24/23 06:00 Water,Injection,Sterile 10 Ml Vial IJ 08/24/23 23:59 DIRECTED PRN PFSH Active Problems Active Problems: Problem Status Onset Code Neuropathy, diabetic E11.40 Corns and callosities L84 Hypertension I10 Plantar fasciitis M72.2 Seizure R56.9 Diabetes E11.9 GERD (gastroesophageal reflux disease) K21.9 Conductive hearing loss, external ear H90.2 Amblyopia of right eye H53.001 Ocular hypertension H40.059 Glaucoma H40.9 Hyperlipemia E78.5 Syncope R55 Adjustment disorder with depressed mood F43.21 Grief reaction F43.21 Alcohol abuse F10.10 Dyspnea on exertion R06.00 Obstructive sleep apnea syndrome, mild G47.33 Microalbuminuria R80.9 Charcot's joint of foot M14.679 Gastroparesis due to DM E11.43, K31.84 Vertigo R42 Reyes's esophagus ~04/2020 K22.70 Gastritis K29.70 Medical History Medical History H/O amblyopia right Abnormal EKG Hx of carpal tunnel syndrome Hypercholesteremia Medical History Comments:: Pt. states last seizure was r/t to his heavy drinking. Has not drank since 08/14/22. Pt. states he is sensitive to light and has to wear sunglasses constantly, states he is being worked up. 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 States he has an appt in 09/2023 Surgical History Surgical History Hx of colonoscopy Hx of esophagogastroduodenoscopy History of shoulder surgery Tobacco Smoking/Tobacco Use Status: Former Tobacco Use Second hand exposure: No Alcohol Alcohol Intake: former Substance Use Substance use: Daily Substance use type: marijuana Details: sober 08/14/22 ETOH Vital Signs and Lab Results Vital Signs Most Recent Vital Signs in EMR: Temp Pulse Resp BP Pulse Ox 36.7 C 80 18 144/91 H 96 08/24/23 09:20 08/24/23 09:20 08/24/23 09:20 08/24/23 09:20 08/24/23 09:20 Lab Results Blood Type / Crossmatch: No Data to Display Complete Blood Count: White Blood Count 8.41 10^3/uL (4.4-10.8) 08/19/23 09:21 Red Blood Count 5.56 10^6/uL (4.36-5.78) 08/19/23 09:21 Hemoglobin 15.7 g/dL (13.5-17.5) 08/19/23 09:21 Hematocrit 46.5 % (40.0-50.0) 08/19/23 09:21 Platelet Count 202 10^3/uL (130-400) 08/19/23 09:21 Complete Metabolic Panel: Sodium 137 mmol/L (136-145) 08/19/23 09:21 Potassium 3.4 mmol/L (3.5-5.1) L 08/19/23 09:21 Chloride 101 mmol/L (98-107) 08/19/23 09:21 Carbon Dioxide 32.0 mmol/L (21.0-32.0) 08/19/23 09:21 BUN 16 mg/dL (7-18) 08/19/23 09:21 Creatinine 0.8 mg/dL (0.70-1.30) 08/19/23 09:21 Est GFR (CKD-EPI 2020) 107.15 (mL/min/1.73m2) 08/19/23 09:21 Calcium 9.0 mg/dL (8.5-10.1) 08/19/23 09:21 Albumin 3.4 g/dL (3.4-5.0) 08/19/23 09:21 Glucose 118 mg/dL (74-106) H 08/19/23 09:21 Liver Function Panel: Alanine Aminotransferase (ALT/SGPT) 37 U/L (16-63) 08/19/23 09: 21 Aspartate Amino Transf (AST/SGOT) 20 U/L (15-37) 08/19/23 09:21 Coagulation Panel: No Data to Display Cardiac Panel: No Data to Display Arterial Blood Gas: No Data to Display Venous Blood Gas: No Data to Display Pancreas Panel: No Data to Display Thyroid Panel: No Data to Display Infectious Disease: No Data to Display Blood Cultures: No Data to Display Toxicology Panel: No Data to Display Imaging and Studies Imaging and Studies Study information below may be from another EMR and interpreted by another provider. Please see original notes in EMR for more complete details. EKG Summary: 12/16: sinus, LAFB, ?LVH, likely early repol. Stress Test Summary: 11/16: exercise [id number] to pharm. EKG nondiagnostic. MPI 48% EF, small fixed perfusion defect that is likely artifact. likely normal stress. Echocardiogram Summary: 10/16: LVEF 50%, no sig valve issues. Anesthesia Assessment and Plan Anesthesia History Personal History: No History of Anesthesia Complications Family History: No Family History of Anesthesia Complications Exercise Tolerance Exercise Tolerance: Metabolic Equivalents>4 Cardiac & Pulmonary Exam Cardiac Exam: Normal S1/S2 Heart Sounds Pulmonary Exam: Clear Bilateral Breath Sounds Implantable Cardiac Device Does patient have a Pacemaker or an ICD?: No Airway Exam Known Difficult Airway: No Mallampati Class: 3 Mouth Opening: Normal (> 3cm) Thyromental Distance: Less than 3 cm Facial Hair: Full Nascimento Neck Range of Motion: Limited ROM Neck Circumference: Thick Teeth Condition: Generalized Poor Dentition and Other (denies loose, but very poor dentition, discussed risk with procedure and bite block. ) ASA Classification ASA Score: ASA 3 Emergency Case?: No NPO Status NPO Status: NPO Clears >2 hours, Solids >8 hours Anesthesia Plan Resuscitation Status: Full Code Anesthesia Technique: General Anesthesia Airway Planned: Natural Airway Monitors Used: Standard Monitors Preoperative Comments:: 52 yo male with barretts for EGD. Sig PMHx: HTN, GERD (omeprazole), DM (neuropathy, gastroparesis, ozempic - held for 2 weeks, aspart, jardiance), former smoker/EtOH, occ cannabis. Previous Anes: - EGD, ketamine/prop, natural airway, no issues.
[2023-08-24 09:20] VITALS: BP 144/91; PULSE 80; RESP 18; TEMP 36.7; O2SAT 96
[2023-08-24 09:51] VITALS: BMI 39.9
[2023-08-24] MEDS: Lactated Ringers 1,000 ML 80 ML IV (09:53)
--- NOTE | 2023-08-24 10:45 | STOM_PTH ---
PATIENT: Roderick Gupta LOC: [facility] U#:[id number] AGE/SX: 52/M ROOM: RE08/24/[address]: Shasha Redmond MD : 1970 BED: DIS: 08/24/2023 SPEC #: [id number] RECD: 08/24/23 12:48 STATUS: AJ RERenard #: [id number] ISAAC: 08/24/23 10:[address]: Shasha Redmond DEPT: Surgical Specimen RECD BY: Whitney Wilkins ENTERED: 08/24/23 12:50 SP TYPE: STOMACH OTHR DR: Kim Caldwell APRN Tissues: 1 - STOMACH BIOPSY 2 - STOMACH BIOPSY 3 - ESOPHAGUS BIOPSY 4 - ESOPHAGUS BIOPSY 5 - ESOPHAGUS BIOPSY Procedures: GROSS AND MICRO LEVEL 4 IMMUNOPEROXIDASE STAIN Comments: [id number]
[2023-08-24 10:59] VITALS: BP 127/81; PULSE 81; RESP 18; TEMP 36.5; O2SAT 94
--- NOTE | 2023-08-24 11:05 | PDOC.DSDIS_ITS ---
Date of service: 08/24/23 Time of Service: 11:32 Discharge Plan Disposition Patient Disposition: Home Discharge Details Reason For Visit: Reyes's esophagitis Attending Provider: Shasha Redmond Primary Care Provider: Kim Caldwell Home Meds and New Rx's Prescriptions: Continued insulin aspart U-100 [Novolog FlexPen U-100 Insulin] 100 unit/mL (3 mL) insulin pen See Rx Instructions subcut TID Rx Instructions: sliding scale 125-149 4U 150-174 6 U 177-199 8U 200+ 10U subcutaneously three times a day; (DME) OneTouch Ultra Test Strip See Rx Instructions .Route Qty: 100 4RF Rx Instructions: to test blood sugars tid to keep AIC below 7.0% Dx: Ell.9 Ozempic 1 mg/dose (4 mg/3 mL) pen injector 1 mg subcut QWEEK Qty: 3 0RF Rx Instructions: For 4 weeks, then increase to the 2mg weekly dose. Ozempic 2 mg/dose (8 mg/3 mL) pen injector 2 mg subcut QWEEK Qty: 3 6RF chlorthalidone 25 mg tablet 25 mg PO DAILY Jardiance 25 mg tablet 25 mg PO DAILY atorvastatin [Lipitor] 20 MG tablet 20 mg PO HS omeprazole 40 MG capsule,delayed release(DR/EC) 40 mg PO DAILY lisinopril 10 MG tablet 30 mg PO HS insulin glargine [Lantus Solostar U-100 Insulin] 100 unit/mL (3 mL) insulin pen 80 unit subcut QAM Patient Comments: Pt. states he takes it 4am hydrochlorothiazide 12.5 mg tablet 12.5 mg PO DAILY Patient Comments: TK 2 TS PO D cholecalciferol (vitamin D3) [Vitamin D3] 25 mcg (1,000 unit) tablet 25 mcg PO DAILY Patient Comments: TK 1 T PO D Discharge Instructions Instructions: Gastritis (DC), Diet for Stomach Ulcers and Gastritis (ED), GERD (Gastroesophageal Reflux Disease) (DC), Reyes Esophagus (DC) Additional Instructions: Findings: Severe inflammation of the stomach Reyes's esophagus Medicationsl: continue Omeprazole daily Diet: Small meals often Low acid Avoid alcohol Sips of water after each bite Follow up: I will sent a letter or call in 10 days with results of your biopsies. Please call if you develop: fevers >101.5 Nausea or Vomiting Abdominal pain that is not transient Rectal bleeding that is more then a tbsp A hard abdomen and inability to pass gas DAY SURGERY UNIT POST ENDOSCOPY INSTRUCTIONS Instructions for everyone who is given Anesthesia: For your safety, please do the following for the next 24 Hours: a. Do not drive or operate dangerous equipment b. Do not drink alcohol beverages or use any recreational drugs for the first 24 hours or while taking pain medications. The medications in your body may have a reaction that can be dangerous. c. Do not make any important decisions or sign any important papers 1. Generally there are no restrictions on your activity after a day or so has gone by, but you may feel a bit fatigued for a few days. 2. After you arrive home you may have a light meal and return to a normal diet as you can tolerate it without feeling sick to your stomach. 3. After surgery, you may feel pain or discomfort. This should be only transient, but if it persists please contact your doctor. 4. If there are any questions regarding the findings of your procedure, please feel free to contact your doctor. 6. If you are unable to contact your doctor with a problem, contact the hospital at [phone]. 7. Continue all your regular medications unless directed otherwise. I understand the above instructions and have no questions. Signature of Patient or Responsible Adult Escort Date/Time Name of Responsible Adult Escort Signature of Nurse Date/Time Stand Alone Forms: Anesthesia Discharge Inst., Thanh Pedrazacurtis (DSU) Referrals: Shasha Redmond MD [ [facility] STAFF PHYSICIAN] - 09/05/23 9:30 am Activity:: Activity as Tolerated Diet:: low acid DS: Diagnosis Discharge Diagnosis (1) Gastritis: Status: Acute Asessment and Plan: Patient is seen and examined after his upper endoscopy. Patient is having minimal sore throat. he has been able to tolerate liquids. he does not have any Nausea or Vomiting.He is not having any chest pain or shortness of breath. He has been able to pass gas and is not having any abdominal pain or distention. he has not vomited any blood. The vital signs have been stable-see nursing notes. We discussed findings on his endoscopy We reviewed the importance of lifestyle modifications- see diet recommendations We reviewed any new medications that the patient may be prescribed- see medicine reconciliation. Patient will either be sent a letter with the biopsy results or follow up in the office- see discharge instructions Patient was given explicit instructions for emergency follow up post endoscopy- see discharge instructions Patient verbalized understanding and was discharged in stable and satisfactory condition. See nursing notes. (2) Reyes's esophagus: Status: Acute (3) GERD (gastroesophageal reflux disease): Status: Chronic
--- NOTE | 2023-08-24 11:12 | W.ANESPOSTOP ---
Postoperative Evaluation Date, Time and Location Date Performed: 08/24/23 Time Performed: 11:12 Patient Location: Day Surgery Unit Vital Signs Most Recent Imported Vital Signs: Most Recent Vital Signs Temp Pulse Resp BP Pulse Ox 36.5 C 81 18 127/81 94 08/24/23 10:59 08/24/23 10:59 08/24/23 10:59 08/24/23 10:59 08/24/23 10:59 Pain Score Most Recent Pain Score: Most Recent Pain Score Pain Level 0 08/24/23 09:20 Assessment Mental Status: Awake (Alert & Oriented to Patient Baseline) Airway and Respiratory Function: Patent airway with normal (patient baseline) respiratory exam Cardiovascular Function: Hemodynamically Stable Hydration Status: Adequately Hydrated Nausea & Vomiting: No Nausea or Vomiting Pain: Pt. Denies Any Pain Peripheral Nerve Block: Patient did not receive a nerve block
--- NOTE | 2023-08-24 11:15 | ENDO_ITS ---
Date of service: 08/24/23 Time of Service: 11:16 Endoscopy Report DATE OF PROCEDURE: 08/24/23 PRE-OP DIAGNOSIS: Hx of segura's POST-OP DIAGNOSIS: same (severe gastritis) PROCEDURE: EGD with biopsies SURGEON: Shasha Redmond ANESTHESIA TYPE: General:No Airway ESTIMATED BLOOD LOSS: 3 PATHOLOGY: other (Bx of antrum, esophagus at 38, 36, 34 and 32 cm) COMPLICATIONS: None DISPOSITION: same day INDICATIONS: Mr. Gupta is a pleasant 52-year-old gentleman who comes in today for a surveillance of his Segura's esophagitis diagnosed in 2019. He continues to have dysphagia. He does not feel like it ever got any better. His past medical history is very significant for diabetes which is not well controlled at this time. He also has hypertension, mild sleep apnea and gastric paresis secondary to his diabetes. I discussed the procedure with him in detail as well as the risks, benefits and complications. We discussed the fact that with his obesity, gastric paresis and GERD he is at risk for aspiration. After our conversation the patient had a good understanding of the procedure as well as the possible complications and wished to proceed. Risks, benefits and complications have been reviewed. Complications include but are not limited to bleeding, pain, perforation, sore throat, aspiration, and adverse reaction to the medications. Questions were entertained and answered to their satisfaction and they wished to proceed. No guarantees were given or implied. Patient was seen in [facility] prior to his procedure. We reviewed the proceedure and possible complications again. Patient had no other questions and signed the consent FINDINGS: Severe inflammation of his stomach Segura's esophagus PROCEDURE DESCRIPTION: After informed consent was obtained the patient was take to the procedure room and placed in a supine position. Monitors were applied and a time out was done. The patients name, date of , procedure type, allergies to medications and metal in their body was reviewed. A bite block was placed and the patient was sedated. Once sedated and comfortable the gastroscope was advanced through the oropharynx which was grossly normal into the esophagus. The proximal and mid- esophagus was normal. In the distal esophagus there was evidence of segura's noted. The scope was advanced into the stomach and through the pylorus into the 3rd portion of the duodenum. The duodenum was noted to be normal. The scope was retracted back into the stomach. There was a polyp noted in the antrum and severe inflammation of the antrum and body. Biopsies were done to rule out H. pylori. There were no ulcers. The scope was retroflexed. The cardia and fundus were noted to be normal. There was a hiatal hernia noted. The scope was retracted back into the esophagus and biopsies were done of the GE junction at 38, 36, 34 and 32 cm. There is definitely Segura's. The Z line was irregular. The GE junction was at 38 cm. The scope was removed and the patient was woken up and taken back to [facility] in stable condition.
[2023-08-24 11:29] VITALS: BP 115/73; PULSE 77; RESP 18; TEMP 36.7; O2SAT 97
== END 2023-08-24 11:52 | disposition home or self-care (01) ==
PROVIDERS: PCP Nurse Practitioner; Visit Provider Surgery
PROC: 0DJ68ZZ Inspection of Stomach, Via Natural or Artificial Opening Endoscopic (ICD-10-PCS; CPT 43235; principal; 2023-08-24 10:30)
DX: K29.70 Gastritis, unspecified, without bleeding (principal); K22.70 Barrett's esophagus without dysplasia; K21.9 Gastro-esophageal reflux disease without esophagitis; G47.33 Obstructive sleep apnea (adult) (pediatric); K31.84 Gastroparesis; K44.9 Diaphragmatic hernia without obstruction or gangrene; E11.40 Type 2 diabetes mellitus with diabetic neuropathy, unspecified; I10 Essential (primary) hypertension; F10.10 Alcohol abuse, uncomplicated; Z87.891 Personal history of nicotine dependence; K22.89 Other specified disease of esophagus
CPT/HCPCS: 43239; 88305; 88361; J2704

== ENCOUNTER 2024-01-16 05:16 | Outpatient (CLI) | payer MEDICAID, SELFPAY ==
[2024-01-16] MEDS: Levalbuterol HFA 15 GM INH 4 PUFF IH (11:57)
[2024-01-16] MEDS: Inhaler, Assist Device 1 EACH MC (11:58)
--- NOTE | 2024-01-16 14:07 | W.6MWT ---
Date of service: 01/16/24 Time of Service: 09:48 6 Minute Walk Test Note: 6 Minute Walk Test Distance walked: 900 feet Desaturations: No significant desaturations Heart rate changes: No significant changes Recommendation: No supplemental O2 needed with exertion. Jeanette Lauren MD Pulmonary & Critical Care Medicine
--- NOTE | 2024-01-16 16:03 | W.PFT ---
Date of service: 01/16/24 Time of Service: 10:00 Pulmonary Function Test Result Indications: Dyspnea Interpretation Spirometry: There is no airflow limitation. Positive bronchodilator response. Lung Volumes: There is some air trapping Diffusion Capacity: Normal diffusion Airway Pressure: Normal airways resistance Impression No airflow obstruction, but there is a bronchodilator response with air trapping which may reflect asthma. Clinical Correlation therefore is recommended.
== END 2024-01-16 05:17 | disposition home or self-care (01) ==
LOC: RT 05:16
PROVIDERS: PCP Nurse Practitioner; Visit Provider Physician Assistant Surgical
DX: R06.00 Dyspnea, unspecified (principal)
CPT/HCPCS: 94060; 94618; 94726; 94729

== ENCOUNTER → 2024-04-23 01:26 | Outpatient (CLI) | payer MEDICAID, SELFPAY ==
--- OUTSIDE RECORDS SUMMARY | 2024-04-23 01:27 | XMS_ITS | Encounter Summary ---
Author Organization [facility] Address [address] [place] [address] Care Team Providers Care Bead Flipper Name Role Phone Dinorah Caldwellyce Deysi SHEET TESTER Primary Care Provider Encounter Details Date Type Department Care Team (Late Contact Info) Description 12/27/2023 Transcribe Orders [address] [id number] Blayne Medina MD [address] [place] [phone] Unqualified visual loss, both eyes (Primary Dx); Optic atrophy associated with retinal dystrophies Social History Tobacco Use Types Packs/Day Years Used Date Smoking Tobacco: Former Cigarettes Q uit: 2008 Smokeless Tobacco: Never Alcohol Use Standard Drinks/Week Comments Not Currently 0 (1 standard drink = 0.6 oz pur e alcohol) Interpersonal Safety Answer Date Record ed Physically Hurt Never 05/16/2020 Verbally Threaten Not on file 05/16/2020 Sex and Gender Information Value Date Recorded Sex Assigned at Not on file Gender Identity Male 03/11/2023 9:04 EDT Sexual Orientation Not on file documented as of this encounter Plan of Treatment Upcoming Encounters Date Type Department Care Team (Late Contact Info) Description 05/01/2024 10:30 EDT Office Visit [address] [id number] Blayne Medina MD [address] [place] [address] [address] [place] [phone] 08/17/2024 8:15 EST Office Visit [facility] Ophthalmology - [facility] [address], [place] [id number] David Gates MD [address] [phone] documented as of this encounter Results * MITOCHONDRIAL IGG ANTIBODY (12/27/2023 14:58 EDT) Mitochondrial Ab, M2, S <0.1 <0.1 (Negative ) U 12/29/2023 13:03 EDT [facility] Comment: Test Performed by: [facility] [address] [place] [address] Vascular Technologist Sonographer: Ritesh Bo M.D. Ph.D.; CLIA# [id number] Blood VENOUS BLOOD / Unknown Venipuncture / Unknown 12/27/2023 14:58 EDT 12/27/2023 15:25 EDT Blayne Medina MD IMMUNOLOGY AND S EROLOGY ORDERABLES Performing Organization Address City/State/[facility] Co de Phone Number [facility] [address] [place] [address] documented in this encounter Visit Diagnoses Diagnosis Unqualified visual loss, both eyes- Primary Optic atrophy associated with retinal dystrophies documented in this encounter Care Teams Bead Flipper Relationship Specialty Start Date End Date Kim Caldwell NP [address] [place] [address] PCP - General Family Medicine - Primary Care 05/16/23 documented as of this encounter
--- OUTSIDE RECORDS SUMMARY | 2024-04-23 01:27 | XMS_ITS | Referral Summary ---
Author Organization [facility] Address [address] [place] [address] Care Team Providers Care Drapery And Upholstery Measurer Name Role Phone Kim Caldwell VACATION SALES ADVISOR Primary Care Provider [phone] Encounters Date Type Department Care Team Description 04/19/2024 Telephone [place] [facility] - Main [place] [address] [place], [place] [id number] Blayne Medina MD Other from Last 3 Months Allergies Active Allergy Reactions Criticality Noted Date Comments Metformin Diarrhea 12/27/2023 Esomeprazole Magnesium Nausea Only Medium 03/16/2023 Medications Medication Sig Dispensed Refills Start Date End Date Status lisinopriL (PRINIVIL) 30 mg tablet Take 40 mg by mouth daily. Active atorvastatin (LIPITOR) 20 mg tablet Take 1 Tablet by mouth daily. Active omeprazole (PRILOSEC) 20 mg capsule Take 1 Capsule by mouth daily. Active empagliflozin (JARDIANCE) 25 mg tablet Take 1 Tablet by mouth daily. Active chlorthalidone (HYGROTON) 25 mg tablet Take 1 Tablet by mouth daily. Active insulin glargine,hum.rec.anlog (LANTUS SUBQ) Inject 80 Units into the skin daily. Active insulin aspart (NOVOLOG FLEXPEN U-100 INSULIN SUBQ) Inject into the skin 3 (three) times a day with meals. Active semaglutide (OZEMPIC) 2 mg/dose (8 mg/3 mL) pen injector Inject 2 mg into the skin once a week. Active timolol (TIMOPTIC) 0.5 % ophthalmic solution Place 1 Drop into both eyes 2 times daily. Active citalopram (CELEXA) 20 mg tablet Take 1 Tablet by mouth daily. Active Active Problems No known active problems Social History Tobacco Use Types Packs/Day Years [...] 9:04 EDT Sexual Orientation Not on file Plan of Treatment Upcoming Encounters Date Type Department Care Team (Late st Contact Info) Description 05/01/2024 10:30 EDT Office Visit [address] [phone] Blayne Medina MD [address] [place] [phone] 08/17/2024 8:15 EST Office Visit [address] [phone] David Gates MD [address] [place] [phone] Care Teams Drapery And Upholstery Measurer Relationship Specialty Start Date End Date Kim Caldwell NP [address] [place] [phone] PCP - General Family Medicine - Primary Care 05/16/23
--- OUTSIDE RECORDS SUMMARY | 2024-04-23 01:27 | XMS_ITS | Encounter Summary ---
Author Organization [facility] Address [facility] [place] [address] Care Team Providers Care Pension Examiner Name Role Phone Shana Ceballos APRN Primary Care Provider [phone] Reason for Visit * Consultation (Routine) - Closed Specialty Diagnoses / Procedures Referred By Nevaeh t Referred To Contact Endocrinology Diagnoses Type 2 diabetes mellitus without complications Type 2 diabetes mellitus with diabetic autonomic (poly)neuropathy Charcot's joint, unspecified ankle and foot Proteinuria, unspecified Essential (primary) hypertension Unspecified hearing loss, left ear Hyperlipidemia, unspecified Shana Ceballos APRN [address] [place] [address] [facility] End[facility] [address] [place] [phone] Referral ID Status Reason Start Date Expiration Date V isits Requested Visits Authorized [id number] Closed Consult, [facility] PCP Updated and/or Approved 04/07/2021 04/07/2022 6 6 Encounter Details Date Type Department Care Team (Latest Contact Info) Description 04/23/2021 10:00 AM EDT TH Visit (TeleHealth) [place] [phone] Kishor Brown MD [facility] [place] [address] Type 2 diabetes mellitus with diabetic neuropathy, with long-term current use of insulin; Cardiac risk counseling Social History Tobacco Use Types Packs/Day Years Used Date Smoking Tobacco: Former Cigarettes Q uit: 09/26/2008 Smokeless Tobacco: Never Sex and Gender Information Value Date Recorded Sex Assigned at Not on file Gender Identity Not on file Sexual Orientation Not on file documented as of this encounter Progress Notes * Kishor Brown MD - 04/23/2021 10:00 AM EDT Images from the original note were not included. We are seeing this 50 year old man as part of the Diabetes passport Program Has had dm2 for at least 12 years, could not tolerate metformin due to diarrhea Has been losing weight since he stopped drinking Was drinking a 12 pack a day Usually cook for himself Always on the move but no formal exercise Has lost 15 lbs in 6 weeks Had low sugars on glipizide No low sugars- Was 79 this am Will be seeing eye doctor in June No vision changes in last 4 years Feet are always cold and has decreased foot sensation Current weight 236 - target is 210 No chest pain , no BUCK Has had a recent stress test Some leg edema- resolved Sees primary care every few months B Ham and cheese omelet L At home D Pasta w sauce Sometimes snacks PMH 1) GERD 2) DM2 Quit smoking 2008 Quit drinking 2020 Last BP has been VIDEO VISIT From database compiled by Shawna CALERO RD Patient Name: Teodoro Alexandre : 1970 Primary Care Provider: Shana WONG [facility] Pt agrees to telemedicine visit on a April 23 at 10:00am, understands this will be at the [facility] and it will be billed through [facility] Endocrinology. Pt video visit can besent to [email or web address] Date of Diabetes Diagnosis: thinks around 2008? PCP at the time Mary Murray? [facility] Current Diabetes Regimen: ??? Lantus 84u (takes 42 and 42 in [address] spot) - 9pm. (Supposed to titrate Lantus 3 units every 3 days to get his a.m. blood sugars between 80-120, has not done this however) ??? Victoza- 1.8mg 2:30pm ??? Jardiance 25mg started on March 09 takes at 6:30am. (restarted Jardiance at 25 mg instead of 10 mg). o Feeling better physically since re-starting Jardiance and quitting drinking (see below). Current Other Medications: ??? Chlorthalidone 25mg 1x/day ??? Lisinopril 20mg 1x/day ??? Omeprazole 40mg 1x/day Diabetes Medications Previously tried or failed in the past (indicated if too expensive): Metformin AND Metformin XR. reason for failure: diarrhea and stomach cramps tried 1x/day and 2x/daytried extended release and also could not tolerate. It has been about a year since he took it. Known complications: (Dr. Kishor Brown will complete) Retinopathy status - none, background, requiring treatment Last Eye Appointment: visit 4 years ago. After discussion today, he plans on calling [facility] for a visit. Neuropathy status - none, mild foot symptoms, severe symptoms Nephropathy status - normal, reduced function, dialysis, transplant Cardiac disease - none, treated, unstable Peripheral vascular disease- none, under evaluation, treated, amputee Other Information: Diet: Was drinking 12 pack per day. Last beer was the day before father???s day 2020. (noticed BG improved) Breakfast: Coffee with 2% milk 3 Tbsp and water. Omelet 2 eggs, ham and slice of cheese Lunch: leftovers or 2 slices of pizza. Dinner: devilled ham sandwich hot dog bun. Eats white bread, won???t even try whole wheat. Drinks: zero sugar vitamin water, however not typical. Does not eat fruits because it makes his BG ???go up to 500?? . Every once in a while drinks orange. Agrees to check BG after eating 1 serving of fruit to see if that is still the case. Roderick and daughter grocery shop. Household: 4 people, Girlfriend (22 years) mother and daughter Occupation: hasn???t worked since taking care of father. 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 Mental Health: not seeing anyone doesn???t want to Dental: 1992 last time saw dentist, has 7 teeth, can eat ok. Both top and bottom, does NOT want dentures. Not interested in going to a dentist. Did spend time discussing diabetes and oral health. Feet: checks feet every day, has neuropathy Assessment and plan 1) DM2 - Mr Gupta has had DM2 for at least 12 years , generally with poor control. He has sufferedthe complication of peripheral neuropathy but has not had signficant retinopathy (though not seen for 4 years) or nephropathy, and no manifest heart disease. He has currently been paying attention othis diet at the same time he stopped excessive alcohol use, with a 12 lb weight loss over 6 weeks. His current monitoring would suggest an HA1c under 8 %, a far cry from the 12 % of midJune. I am a bit suspcious about his postmeal tests which seem too well controlled on a regimen that does not direcly target meal associated glucose increases- the timing may not been the 1-2 h Requested. At this point I recommend getting an HA1c after 8 weeks on his current regimen and effort , thinking it will show him to be at or close to a target HA1c of 8 % or less: If HA1c is < 8.5 %, continue current regimen. If weight loss ceases, consider switching to high dose trulicity or ozempic (3 mg trulicity a week or 2 mg ozempic per week) from victoza If HA1c is > 8.5, I recommend switching to high dose GLP1 as above or adding glimeperide 1 mg daily or bid. I also at that point recommend a diagnostic sensor to better characterize his daily glucose levels in order to see if the problem is preprandial/overnight - would adjust lantus, or mainly postmeal - would add glimperide or consider meal insulins He might be motivated by the feedback of a glucose sensor like the helena if his insurance will cover 2) Prevention - he should either be on a high dose ptent statin or a statin to adjust his LDL to under 80. I recommended he restart the atarovastatin and would use at least 40 mg a day 3) HBP - has been well controlled 4) ? Gastroparesis - this is listed in his chart but the fact that he tolerates liraglutide withoutvomiting suggests he does not have gastroparesis 5) BMI > 30- he says his weight target is 220 or so which is feasible (15 more lbs) . If weight loss stops then using the higher dose GLP1's may be helpful ; a goal for care should be not not increase insulin dose and possibly decrease it. 6) neuropathy - distal sensory variety, paresthesias + moderate risk of ulcer with diminished pressure sense This was a 40 min visit in total time for precharting, interview and counseling, review of outside labs as above, ordering labs and charting documented in this encounter Plan of Treatment Not on file documented as of this encounter Visit Diagnoses Diagnosis Type 2 diabetes mellitus with diabetic neuropathy, with long-term current use of insulin Cardiac risk counseling Other specified counseling documented in this encounter Care Teams Pension Examiner Relationship Specialty Start Date End Date Shana Ceballos, BIN [address] [place] [address] PCP - General Family Medicine 01/20/16 documented as of this encounter
--- OUTSIDE RECORDS SUMMARY | 2024-04-23 01:27 | XMS_ITS | Clinical Summary ---
Author Organization [facility] Address [address] [place] [address] Care Team Providers Care Jet Operator Name Role Phone Kim Caldwell MISSILE INSPECTOR PREFLIGHT Primary Care Provider [phone] Allergies Active Allergy Reactions Criticality Noted Date [...] Active Active Problems No known active problems Encounters Date Type Department Care Team Description 04/19/2024 Telephone [facility] Ophthalmology - [facility] [place] [facility] [address] [place] [address] Blayne Medina MD Other from Last 3 Months Family History Medical History Relation Comments Glaucoma Neg Hx Macular Degeneration Neg Hx Social History Tobacco Use Types Packs/Day Years [...] 9:04 EDT Sexual Orientation Not on file Obstetrics History Plan of Treatment Upcoming Encounters Date Type Department Care Team (Late st Contact Info) Description 05/01/2024 10:30 EDT Office Visit [address] [id number] Blayne Medina MD [address] [place] [phone] 08/17/2024 8:15 EST Office Visit [address] [phone] David Gates MD [address] [place] [phone] Health Maintenance Due Date Last Done Comments Hepatitis C Screen 1970 Hepatitis B Vaccine (1 of 3 - 19+ 3-dose series) 12/05 COVID-19 Vaccine (2022-24 season) 2023 Roderick Gupta Personal/Family Self 1970 [address] [facility] [address] [place] [address], [place] [address] Roderick Gupta Personal/Family Self 1970 [address] [facility] [address] [place] [address] Roderick Gupta Personal/Family Self [address] [address] Roderick Gupta Personal/Family Self [address] [address] Care Teams Jet Operator Relationship Specialty Start Date End Date Kim Caldwell NP [address] [place] [address] PCP - General Family Medicine - Primary Care 05/16/23
--- OUTSIDE RECORDS SUMMARY | 2024-04-23 01:27 | XMS_ITS | Encounter Summary ---
Author Organization [facility] Address [facility] [place] [address] Care Team Providers Care Hansard Reporter Name Role Phone Mary Murray MD Primary Care Provider [phone] Reason for Visit * Reason Comments Left Elbow Pain 7-8 months; no traum a Encounter Details Date Type Department Care Team (Late st Contact Info) Description 09/04/2012 1:15 PM EST Office Visit Orthopaedics at [address] [place] [phone] Erasmo Alfaro MD [address] [place] [address] [place] [address] Lateral epicondylitis of elbow (Primary Dx) Social History Tobacco Use Types Packs/Day Years Used Date Smoking Tobacco: Former Cigarettes Q uit: 09/26/2008 Smokeless Tobacco: Never Sex and Gender Information Value Date Recorded Sex Assigned at Not on file Gender Identity Not on file Sexual Orientation Not on file documented as of this encounter Last Filed Vital Signs Vital Sign Reading Time Taken Comments Blood Pressure - - Pulse - - Temperature - - Respiratory Rate - - Oxygen Saturation - - Inhaled Oxygen Concentration - - Weight 108 kg (238 lb) 09/04/2012 12:58 PM EST r eported Height 175.3 cm (5' 9) 09/04/2012 12:58 PM EST reported Body Mass Index 35.15 09/04/2012 12:58 PM EST documented in this encounter Progress Notes * Erasmo Alfaro MD - 09/04/2012 12:59 PM EST Roderick Gupta is a 41 y.o. male Problem: L elbow pain. Came here as he's come to Dr. Roy in the past. Duration: 7-8 months DOI: none Rx thusfar: some meds at immediate care, exercises Subjective: Pain is more lateral, like a knife. He is R HD. He feels pain like a shock w/ impact. Wakes him 5-6 times/night. Rare tingling PMH: HTN, IDDM, obesity. Body mass index is 35.15 kg/(m^2). Work: no Smoke: no Outpatient Encounter Prescriptions as of 09/04/2012 Medication Sig Dispense Refill ??? metFORMIN (GLUCOPHAGE) 500 mg tablet Take 1,000 mg by mouth 2 times daily (with meals). ??? insulin glargine (LANTUS) 100 unit/mL vial injection Inject 30 Units subcutaneously nightly. ??? omeprazole (PRILOSEC) 40 mg capsule Take 40 mg by mouth daily. ??? latanoprost (XALATAN) 0.005 % ophthalmic solution 1 drop nightly. ??? lisinopril (PRINIVIL;ZESTRIL) 10 mg tablet ??? DISCONTD: CIS Free Text Med - Travatan ??? DISCONTD: ranitidine (ZANTAC) 150 mg tablet ??? DISCONTD: varenicline (CHANTIX) 1 mg tablet Allergies Allergen Reactions ??? Nexium (Esomeprazole Magnesium) Objective: ROM: FROM Tenderness: lateral epicondyle only Special tests: Hurts w/ wrist extension resisted Numbness: None Strength: Normal Vascular: Normal Skin: Intact and normal Xrays/Studies: normal Diagnosis/Assessment: L lateral epicondylitis Plan: Under sterile conditions, a mixture of 1.0 cc of celestone, 1 cc Marcaine and 1 cc Lidocaine was injected at the L lateral epicondyle. Risks were discussed, including but not exclusive to the risks of increased pain, infection, subcutaneous fat atrophy and changes in skin pigmentation. Pt was instructed to apply ice and that the injection may take several days to work. The injection could be repeated in several months, up to 2-3 total, if helpful Cc: MARY MURRAY MD documented in this encounter Plan of Treatment Not on file documented as of this encounter Visit Diagnoses Diagnosis Lateral epicondylitis of elbow- Primary Lateral epicondylitis of elbow documented in this encounter Administered Medications Inactive Administered Medications - up to 3 most recent administrations Medication Order MAR Action Action Date Dose Rate Site betamethasone acetate-betamethasone sodium phosphate (CELESTONE) injection 6 mg 6 mg, Intra-articular, ONCE, 1 dose, On 09/04/12 at 1330, Routine Given 09/04/2012 1:08 PM EST 6 mg documented in this encounter Care Teams Hansard Reporter Relationship Specialty Start Date End Date Mary Murray MD [address] [place] [phone] PCP - General 08/18/10 01/19/16 documented as of this encounter
--- OUTSIDE RECORDS SUMMARY | 2024-04-23 01:27 | XMS_ITS | Clinical Summary ---
Author Organization [facility] Address [facility] [place] [address] Care Team Providers Care District Manager Primary Care Sales Name Role Phone Shana Ceballos APRN Primary Care Provider [phone] Allergies Active Allergy Reactions Criticality Noted Date Comments Esomeprazole Magnesium 09/04/2012 Medications Medication Sig Dispensed Refills Start Date End Date Status insulin glargine (LANTUS) 100 unit/mL vial injection Inject 30 Units subcutaneously nightly. Active omeprazole (PRILOSEC) 40 mg capsule Take 40 mg by mouth daily. Active lisinopriL (Zestril) 20 mg TabletIndications :Type 2 diabetes mellitus with diabetic neuropathy, with long-term current use of insulin Take 1 tablet by mouth daily. 90 tablet 3 04/23/2021 Active chlorthalidone (Hygroten) 25 mg TabletIndications :Type 2 diabetes mellitus with diabetic neuropathy, with long-term current use of insulin Take 1 tablet by mouth daily. 90 tablet 3 04/23/2021 Active liraglutide (VICTOZA) 0.6 mg/0.1 mL (18 mg/3 mL) Pen InjectorIndicatio ns:Type 2 diabetes mellitus with diabetic neuropathy, with long-term current use of insulin Inject 1.8 mg subcutaneously daily. 3 Syringe 11 04/23/2021 Active Social History Tobacco Use Types Packs/Day Years Used Date Smoking Tobacco: Former Cigarettes Q uit: 09/26/2008 Smokeless Tobacco: Never Sex and Gender Information Value Date Recorded Sex Assigned at Not on file Gender Identity Not on file Sexual Orientation Not on file Last Filed Vital Signs Vital Sign Reading Time Taken Comments Blood Pressure - - Pulse - - Temperature - - Respiratory Rate - - Oxygen Saturation - - Inhaled Oxygen Concentration - - Weight 108 kg (238 lb) 09/04/2012 12:58 PM EST r eported Height 175.3 cm (5' 9) 09/04/2012 12:58 PM EST reported Body Mass Index 35.15 09/04/2012 12:58 PM EST Plan of Treatment Health Maintenance Due Date Last Done Comments CT Colonography 1970 Colonoscopy 1970 Colorectal Cancer Screening 1970 FIT DNA 1970 FIT 1970 Sigmoidoscopy (10 year) with FIT yearly 1970 Sigmoidoscopy 1970 HIV screen 12/05/1989 Hepatitis C Screening 12/05/1989 Lipid Screening 12/05/1989 Hepatitis B vaccine (0-59 yrs) (1) 12/05/1990 Tdap adult 12/05/1990 Tetanus vaccine 12/05/1990 Zoster vaccine (1 of 2) 12/05/2021 Covid-19 Vaccine (1 - 2022-24 season) 2023 Influenza (Flu) vaccine (1 o f 1 - Influenza standard series) 05/27/2024 Care Teams District Manager Primary Care Sales Relationship Specialty Start Date End Date Shana Ceballos, BIN [address] [place], [place] [id number] PCP - General Family Medicine 01/20/16
--- OUTSIDE RECORDS SUMMARY | 2024-04-23 01:27 | XMS_ITS | Encounter Summary ---
Author Organization [facility] Address [address] [place] [address] Care Team Providers Care Turner Machine Operator Name Role Phone Kim Caldwell EMBOSSOGRAPH OPERATOR Primary Care Provider [phone] Reason for Visit * Reason Onset Date Comments Other 04/19/2024 Encounter Details Date Type Department Care Team ([facility] st Contact Info) Description 04/19/2024 Telephone [facility] Ophthalmology - [address] [phone] Blayne Medina MD [address] [facility], [address] [place] [address] Other Social History Tobacco Use Types Packs/Day Years [...] on file documented as of this encounter Miscellaneous Notes * Telephone Encounter - Ella Nicholas - 04/19/2024 1003 EDT Patient is wondering if the symptoms that he is having and being followed for be due to the medication ozempic as they just did a release of new side effects on this medication. Patient wants to check in with dr medina about this to see what his thoughts are on it. Patient would also like a call back with the verdict of this question documented in this encounter Plan of Treatment Upcoming Encounters Date Type Department Care Team (Late st Contact Info) Description 05/01/2024 10:30 EDT Office Visit [facility] Ophthalmology [address] [phone] Blayne Medina MD [address] [place] [phone] 08/17/2024 8:15 EST Office Visit [address] [phone] David Gates MD [address] [place] [phone] documented as of this encounter Visit Diagnoses Not on filedocumented in this encounter Care Teams Turner Machine Operator Relationship Specialty Start Date End Date Kim Caldwell NP [address] [place] [address] PCP - General Family Medicine - Primary Care 05/16/23 documented as of this encounter
--- OUTSIDE RECORDS SUMMARY | 2024-04-23 01:28 | XMS_ITS | Encounter Summary ---
Author Organization [facility] Address [address] [place] [address] Care Team Providers Care Tele Marketing Executive Name Role Phone Kim Caldwell CORE WORKER Primary Care Provider [phone] Reason for Visit * Reason Onset Date Comments Other 11/17/2023 Bloodwork Encounter Details Date Type Department Care Team (Late st Contact Info) Description 11/17/2023 Telephone [facility] Ophthalmology - [address] [phone] Blayne Medina MD [address] [facility], [address] [place] [address] Other (Bloodwork) Social History Tobacco Use Types Packs/Day Years [...] encounter Miscellaneous Notes * Telephone Encounter - Dania Villela MA - 11/18/2023 0822 EST Called pt and relayed message per Dr. MEDINA. * Telephone Encounter - Jemma Guo - 11/17/2023 1552 EST Pt called to let Dr. Medina know that he forgot he was supposed to get bloodwork after his appt today. He lives 2 hours away and can't come back to the hospital because he doesn't drive. He's wondering if it's ok to wait until 12/26, when he comes back for a follow up with Dr. Medina. documented in this encounter Plan of Treatment Upcoming Encounters Date Type Department Care Team (Late st Contact Info) Description 05/01/2024 10:30 EDT Office Visit [address] [id number] Blayne Medina MD [address] [place] [phone] 08/17/2024 8:15 EST Office Visit [address] [phone] David Gates MD [address] [place] [phone] documented as of this encounter Visit Diagnoses Not on filedocumented in this encounter Care Teams Tele Marketing Executive Relationship Specialty Start Date End Date Kim Caldwell NP [address] [place] [address] PCP - General Family Medicine - Primary Care 05/16/23 documented as of this encounter
--- OUTSIDE RECORDS SUMMARY | 2024-04-23 01:28 | XMS_ITS | Encounter Summary ---
Author Organization [facility] Address [address] [place] [address] Care Team Providers Care Flame Annealing Machine Operator Name Role Phone Kim Caldwell SLICER MACHINE OPERATOR Primary Care Provider [phone] Encounter Details Date Type Department Care Team (Late Contact Info) Description 12/27/2023 14:30 EDT Phlebotomy Only [facility] ED Center 2 Phlebotomy [address] [place], [place] [phone] Family Medicine Physician, Acc Phlebotomy Vision loss, bilateral; Optic atrophy; Unqualified visual loss, both eyes; Optic atrophy associated with retinal dystrophies Social [...] Info) Description 05/01/2024 10:30 EDT Office Visit [facility] Ophthalmology - [facility] [address] [place], [place] [address] Blayne Medina MD 111 [facility], [address] [place] [phone] 08/17/2024 8:15 EST Office Visit [facility] Ophthalmology - [address] [place] [address] [place], [place] [phone] David Gates MD [address] [facility], [address] [place] [address] documented as of this encounter Procedures Procedure Name Priority Date/Time Associated Diagnosis Comments MITOCHONDRIAL IGG ANTIBODY Routine 12/27/2023 14:58 EDT Unqualified visual loss, 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 SED RATE Routine 12/27/2023 14:58 EDT Vision loss, bilateral Optic atrophy COMPLETE BLOOD COUNT Routine 12/27/2023 14:58 EDT Vision loss, bilateral Optic atrophy C REACTIVE PROTEIN Routine 12/27/2023 14 :58 EDT Vision loss, bilateral Optic atrophy BUN Routine 12/27/2023 14:58 EDT Vision loss, bilateral Optic atrophy CREATININE Routine 12/27/2023 14:58 EDT Vision loss, bilateral Optic atrophy documented in this encounter Results * MITOCHONDRIAL IGG ANTIBODY (12/27/2023 14:58 EDT) Mitochondrial Ab, M2, S <0.1 <0.1 (Negative ) U 12/29/2023 13:03 EDT [facility] Comment: Test Performed by: [facility] [address] [place] [address] Veterinary Microbiologist: Ritesh Bo M.D. Ph.D.; CLIA# [id number] Blood VENOUS BLOOD / Unknown Venipuncture / Unknown 12/27/2023 14:58 EDT 12/27/2023 15:25 EDT Blayne Medina MD IMMUNOLOGY AND S EROLOGY ORDERABLES [facility] [address] [place] [address] * BUN (12/27/2023 14:58 EDT) BUN 14 10 - 26 mg/dL 12/27/2023 16:[address] [facility] Blood VENOUS BLOOD / Unknown Venipuncture / Unknown 12/27/2023 14:58 EDT 12/27/2023 15:25 EDT Blayne Medina MD CHEMISTRY & BLOO D GAS ORDERABLES Performing Organization Address [facility] de Phone Number [facility] [address] [place] [address] * CREATININE (12/27/2023 14:58 EDT) Creatinine 0.83 0.66 - 1.25 mg/dL 12/27/2023 16:[address] [facility] eGFR 105 >60 mL/min/1.73 m2 12/27/2023 16:[address] [facility] Blood VENOUS BLOOD / Unknown Venipuncture / Unknown 12/27/2023 14:58 EDT 12/27/2023 15:25 EDT Blayne Medina MD CHEMISTRY & BLOO D GAS ORDERABLES Performing Organization Address [facility] de Phone Number [facility] [address] [place], [place] [phone] * (ABNORMAL) SED RATE (12/27/2023 14:58 EDT) Sed Rate 28(H) 0 - 20 mm/hr 12/27/2023 16:[address] [facility] Blood VENOUS BLOOD / Unknown Venipuncture / Unknown 12/27/2023 14:58 EDT 12/27/2023 15:25 EDT Blayne Medina MD HEMATOLOGY & PF4 ORDERABLES Performing Organization Address City/[facility]/ZIP Co de Phone Number [facility] [address] [place] [address] * C REACTIVE PROTEIN (12/27/2023 14:58 EDT) [facility] C-Reactive Protein <5.0 <10.0 mg/L 12/27/2023 16:[address] [facility] Blood VENOUS BLOOD / Unknown Venipuncture / Unknown 12/27/2023 14:58 EDT 12/27/2023 15:25 EDT Blayne Medina MD CHEMISTRY & BLOO D GAS ORDERABLES Performing Organization Address City/[facility] Co de Phone Number [facility] [address] [place] [address] * COMPLETE BLOOD COUNT (12/27/2023 14:58 EDT) [facility] WBC 9.89 4.00 - 10.40 K/cmm 12/27/2023 15:42 [facility] RBC 5.78 4.36 - 5.78 M/cmm 12/27/2023 15:42 [facility] Hemoglobin 16.3 13.8 - 17.3 g/dL 12/27/2023 15:42 [facility] HCT 47.9 39.5 - 50.2 % 12/27/2023 15:42 [facility] MCV 83 81 - 95 fL 12/27/2023 15:42 [facility] MCH 28.2 27.6 - 33.0 pg 12/27/2023 15:42 [facility] MCHC 34.0 32.8 - 36.4 g/dL 12/27/2023 15:42 [facility] RDW-CV 12.8 <14.2 % 12/27/2023 15:42 [facility] RDW-SD 38.5 <46.0 fl 12/27/2023 15:42 [facility] PLT 227 141 - 377 K/cmm 12/27/2023 15:[address] [facility] MPV 11.9 9.5 - 12.7 fL 12/27/2023 15:[address] [facility] Blood VENOUS BLOOD / Unknown Venipuncture / Unknown 12/27/2023 14:58 EDT 12/27/2023 15:25 EDT Blayne Medina MD HEMATOLOGY & PF4 ORDERABLES Performing Organization Address City/State/[facility] Co de Phone Number 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
--- OUTSIDE RECORDS SUMMARY | 2024-04-23 01:28 | XMS_ITS | Encounter Summary ---
Author Organization [facility] Address [address] [place] [address] Care Team Providers Care Non Ferrous Material Handler Name Role Phone Kim Caldwell CABLE MOCK UP ASSEMBLER Primary Care Provider [phone] Reason for Visit * Reason Onset Date Comments Eye Problem 06/23/2023 Encounter Details Date Type Department Care Team (Late st Contact Info) Description 06/23/[address] [facility] Ophthalmology - [address] [phone] Blayne Medina MD 111 [facility], [address] [place] [address] Eye Problem Social History Tobacco Use Types Packs/Day Years [...] encounter Miscellaneous Notes * Telephone Encounter - Fahad Valdez RN - 06/23/2023 1603 EDT Called pt, relayed message pt verbalized understanding. Demetria Valdez RN 06/23/2023 16:06 * Telephone Encounter - Paul Vitale RN - 06/23/2023 1540 EDT Patient needs to call Dr Estrada's office about this. Paul Vitale RN 06/23/2023 15:40 * Telephone Encounter - Jemma Guo - 06/23/2023 1536 EDT Which Eye? left Nature of problem? Pt reports an increase in flashes in his left eye. This is a longstanding issue for him, but they have gotten worse lately. No new floaters. Slightly blurrier - having to zoom in to read print on his phone. No eye pain or headaches. Eye watering frequently. Very light sensitive, but this is not new. Onset and Duration? 2-3 days Is this an injury or trauma? No Are you having pain? Describe the type of pain you are having (sharp, dull, etc) no If yes, please rate pain on scale 0-10? 0 Have you had any recent surgery? No Is the patient using any prescription or OTC eye drops? If so, how often? Do you have establish eye care? Yes With who? [facility] and Dr Estrada Did you call them? (If not, please call them first.) yes If no, please advise patient to call there first. If yes, do you have appointment with them? When? yes Are the notes being faxed over? n/a documented in this encounter Plan of Treatment Upcoming Encounters Date Type Department Care Team (Late st Contact Info) Description 05/01/2024 10:30 EDT Office Visit [facility] Ophthalmology - [address] [address] Blayne Medina MD [address] [place] [address], [address] [place] [phone] 08/17/2024 8:15 EST Office Visit [facility] Ophthalmology - Main [place] [address] [place], [place] [address] David Gates MD 111 [facility], [address] [place] [phone] documented as of this encounter Visit Diagnoses Not on filedocumented in this encounter Care Teams Non Ferrous Material Handler Relationship Specialty Start Date End Date Kim Caldwell NP [address] [place] [id number] PCP - General Family Medicine - Primary Care 05/16/23 documented as of this encounter
--- OUTSIDE RECORDS SUMMARY | 2024-04-23 01:28 | XMS_ITS | Encounter Summary ---
Author Organization [facility] Address [address] [place] [address] Care Team Providers Care Superintendent Custodian Janitor Name Role Phone Shana Ceballos CHILD SPECIALIST Primary Care Provider [phone] Chao Wise RPA Primary Care Provider [phone] Kim Caldwell CHILD SPECIALIST Primary Care Provider [phone] Encounter Details Date Type Department Care Team (Late Contact Info) Description 09/06/2020 Lab Requisition [facility] Pathology & Laboratory Medicine - [address] [phone] Outr Resulting Lab, Provider Social History Tobacco Use Types Packs/Day Years Used Date Smoking Tobacco: Never Assessed Interpersonal Safety Answer Date Record ed Physically Hurt Never 05/16/2020 Verbally Threaten Not on file 05/16/2020 Sex and Gender Information Value Date Recorded Sex Assigned at Not on file Gender Identity Male 03/11/2023 9:04 EDT Sexual Orientation Not on file documented as of this encounter Plan of Treatment Upcoming Encounters Date Type Department Care Team ([facility] Contact Info) Description 05/01/2024 10:30 EDT Office Visit [facility] Ophthalmology - [address] [phone] Blayne Medina MD 111 [facility], [address] [place] [phone] 08/17/2024 8:15 EST Office Visit [facility] Ophthalmology - [facility] [address] [place], [place] [phone] David Gates MD [address] [facility], [address] [place] [address] documented as of this encounter Procedures Procedure Name Priority Date/Time Associated Diagnosis Comments DO NOT ORDER STANDALONE - BROAD COVID TEST Today 09/05/2020 15:08 EST COVID-19 TESTING Routine 09/05/2020 15:0 8 EST documented in this encounter Results * DO NOT ORDER STANDALONE - BROAD COVID TEST (09/05/2020 15:08 EST) COVID-19 rt-PCR Result NEGATIVE Negative 09/09/2020 19:36 EST [facility] Comment: 2019-novel Coronavirus (2019-nCoV) not detected by the qRT-PCR assay. Consider testing for other respiratory viruses or re-collecting for 2019-nCoV testing. Note: Optimum timing for peak viral levels during infections caused by 2019-nCoV have not been determined. Collection of multiple specimens from the same patient may be necessary to detect the virus. Limitations Positive results are indicative of active infection with SARS-CoV-2 but do not rule out bacterial infection or co-infection with other viruses. The agent detected may not be the definite cause of disease. In addition, detection of viral RNA may not indicate the presence of infectious virus or that SARS-CoV-2 is the causative agent for clinical symptoms. Negative results do not preclude SARS-CoV-2 infection and should not be used as the sole basis for patient management decisions. Negative results must be combined with clinical observations, patient history, and epidemiological information. False negative results may also occur if amplification inhibitors are present in the specimen or if inadequate numbers of organisms are present in the specimen. Optimum specimen types and timing for peak viral levels during infections caused by SARS-CoV-2 have not been fully determined. Collection of multiple specimens (types and time points) from the same patient may be necessary to detect the virus. The test was validated for use with upper respiratory specimens obtained via nasopharyngeal or oropharyngeal swabs in [facility], [facility], , M5, M6, saline, and MTM media. The performance of this test has not been established for other specimens. Specimens collected using other FDA recommended Specimen Collection Materials listed in the FDA COVID-19 [employer] communication (December 20, 2019) are processed with the caveat that they were not all validated for use with this test and the result must be interpreted in this context. Furthermore, a false negative results may occur if a specimen is improperly collected, transported or handled. If the virus mutates in the RT-PCR target region, SARS-CoV-2 may not be detected or may be detected less predictably. Inhibitors or other types of interference may produce a false negative result. An interference study evaluating the effect of common cold medications was not performed. This test is not FDA-cleared but its performance characteristics were established by our CLIA-certified, CAP-accredited, high complexity laboratory in accordance with CLIA regulations, [employer] [place] (CAP) guidelines (Dec 13, 2019), and FDA guidance (Nov 24, 2019). This test is only for use under the Food and Drug Administration's Emergency Use Authorization. Swab ENTIRE NASOPHARYNX / Unknown 09/05/2020 15:08 EST 09/06/2020 21:55 EST Provider Outr Resulting Lab MICROBIOLOGY - GENERAL ORDERABLES [facility] [place] [place] * COVID-19 TESTING (09/05/2020 15:08 EST) COVID-19 rt-PCR Result NEGATIVE Negative 09/09/2020 22:02 EST [facility] Comment: 2019-novel Coronavirus (2019-nCoV) not detected by the qRT-PCR assay. Consider testing for other respiratory viruses or re-collecting for 2019-nCoV testing. Note: Optimum timing for peak viral levels during infections caused by 2019-nCoV have not been determined. Collection of multiple specimens from the same patient may be necessary to detect the virus. Limitations Positive results are indicative of active infection with SARS-CoV-2 but do not rule out bacterial infection or co-infection with other viruses. The agent detected may not be the definite cause of disease. In addition, detection of viral RNA may not indicate the presence of infectious virus or that SARS-CoV-2 is the causative agent for clinical symptoms. Negative results do not preclude SARS-CoV-2 infection and should not be used as the sole basis for patient management decisions. Negative results must be combined with clinical observations, patient history, and epidemiological information. False negative results may also occur if amplification inhibitors are present in the specimen or if inadequate numbers of organisms are present in the specimen. Optimum specimen types and timing for peak viral levels during infections caused by SARS-CoV-2 have not been fully determined. Collection of multiple specimens (types and time points) from the same patient may be necessary to detect the virus. The test was validated for use with upper respiratory specimens obtained via nasopharyngeal or oropharyngeal swabs in VTM, UTM, M4, M5, M6, saline, and MTM media. The performance of this test has not been established for other specimens. Specimens collected using other FDA recommended Specimen Collection Materials listed in the FDA COVID-19 [employer] communication (December 20, 2019) are processed with the caveat that they were not all validated for use with this test and the result must be interpreted in this context. Furthermore, a false negative results may occur if a specimen is improperly collected, transported or handled. If the virus mutates in the RT-PCR target region, SARS-CoV-2 may not be detected or may be detected less predictably. Inhibitors or other types of interference may produce a false negative result. An interference study evaluating the effect of common cold medications was not performed. This test is not FDA-cleared but its performance characteristics were established by our CLIA-certified, CAP-accredited, high complexity laboratory in accordance with CLIA regulations, [employer] [place] (CAP) guidelines (Dec 13, 2019), and FDA guidance (Nov 24, 2019). This test is only for use under the Food and Drug Administration's Emergency Use Authorization. Performing Lab [facility] 09/09/2020 22:02 EST [facility] Swab 09/05/2020 15:0 8 EST 09/06/2020 21:55 EST Provider Outr Resulting Lab MICROBIOLOGY - GENERAL ORDERABLES [facility] [address] [place], [place] [phone] [place] [address] [facility] [place], [place] documented in this encounter Visit Diagnoses Not on filedocumented in this encounter Care Teams Superintendent Custodian Janitor Relationship Specialty Start Date End Date Shana Ceballos NP [address] [place], [place] [phone] PCP - General 09/26/19 03/10/23 Chao Wise RPA [address] [phone] PCP - General Family Medicine - Primary Care 03/11/23 05/15/23 Kim Caldwell NP [address] [place] [phone] PCP - General Family Medicine - Primary Care 05/16/23 documented as of this encounter
--- OUTSIDE RECORDS SUMMARY | 2024-04-23 01:28 | XMS_ITS | Encounter Summary ---
Author Organization [facility] Address [address] [place] [address] Care Team Providers Care Territory Supervisor Name Role Phone Kim Caldwell BUNK HOUSE WORKER Primary Care Provider [phone] Reason for Visit * Reason Comments Eye Exam Encounter Details Date Type Department Care Team (Late st Contact Info) Description 12/27/2023 12:30 EDT Office Visit [facility] Ophthalmology - [address] [phone] Blayne Medina MD [address] [facility], [address] [place] [address] Social History Tobacco Use Types Packs/Day Years [...] as of this encounter Progress Notes * Blayne Medina MD - 12/27/2023 1230 EDT DIVISION OF OPHTHALMOLOGY [facility] NEURO-OPHTHALMOLOGY FOLLOW-UP 12/27/2023 Mr. Gupta returned for follow-up neuro-ophthalmological examination because of the history of swollen optic nerves. To recall; this is a 53-year-old man who follows with Dr. Neely for comprehensive eye care. At afollow-up evaluation after having presenting with light sensitivity and darkening of his vision he was identified to have bilateral disc edema, moderate on the right and severe on the left. 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 Evaluations for Lyme and giant cell arteritis were performed. The patient had an MRI and MRA as well as a lumbar puncture all reported to be normal. He was referred for neuro-ophthalmic evaluation of the same. At the time of the patient's initial evaluation by me on March 16, 2023 he gave a history of systemic hypertension, poorly controlled diabetes and previous history of heavy alcohol use having stopped at the end of 2021. He reported only mild infrequent headaches. The patient related that his blood sugars had been running high. He denied eye pain. He reported that his vision had remained stable since seeing his photocopying machine operator, but he continued to note light sensitivity and darker vision in the left eye compared to the right. 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 I recommendedongoing monitoring. At the time of the patient's follow-up evaluation with me on May 19, 2023 he reported that he felt 90% better. The patient denied new difficulties in the interval. The history suggest that the patient did have obstructive sleep apnea as well and had been intolerant of CPAP. The exam at that time showed stability if subtle improvement with resolution of the previously seen edema and atrophy having taken his place. The patient was noted to have elevated intraocular pressures and as such I recommended evaluations with my colleagues in glaucoma and at the very least ongoing monitoring through his photocopying machine operator. When last evaluated on November 17, the patient noted interval worsening of his vision. He related that on further evaluation for sleep apnea and he was told that he has sleep apnea including being identified to have oxygen desaturations into the 80's at night. He was working to try to find a mask for CPAP machine that would allow him to tolerate this. His blood pressure and blood sugars had been better controlled in the interval. At that visit, the examination showed some interval worsening with resolution of the previously seen disc edema and interval development of atrophy. In the interval since patient was last examined he reports that his vision is stable. He remains light sensitive and has been wearing darkened sunglasses much of the time. The patient relates that his blood pressure and his blood sugars remain better controlled. He denies other new difficulties in the interval but has been started on a new medication, citalopram, to help him cope with his visual difficulties as well as other stressors. The ocular history, medical history, surgical history, social history, family history, medications and allergies are all unchanged except as noted above and documented in the EMR. The neuro-ophthalmic examination found the patient to be communicative and cooperative for testing.Visual acuities with correction were 20/100+2 in the right eye with pinhole improvement to 20/70; 20/150- in the left eye without refractive refinement or pinhole improvement. Color vision (Ishihara)showed 8/14 correct plates with the right eye and 1/14 correct plates with the left eye. Amsler grid testing showed no metamorphopsia. The pupils were equal in size and showed a left relative afferent pupillary defect. 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 The lids showed 1 to 2 mm ptosis bilaterally with no lid lag or twitch. Examination of extraocular motility showed a small left hyper in primary gaze. Ductions were full. Pursuit and saccade function was normal. There was no nystagmus. iCare tonometry at 1247 hrs. was 22 mmHg in the right eye, 21 mmHg in the left eye. Slit-lamp examination revealed blepharitis, early break of the tear film, with somewhat shallow anterior chambers and 2+ nuclear sclerotic cataracts in each eye. Automated (Lamar) visual lagos were performed with moderate degree of technical difficulty. The right eye showed a pattern of constriction greatest nasally with a mean deviation score -29.38 dB and foveal threshold 26 dB. The left eye shows a general pattern of constriction with at least some suggestion of an altitudinal pattern inferiorly, mean deviation score -26.65 dB of foveal threshold 24 dB. Dilated stereoscopic (indirect) funduscopy revealed a atrophic nerves with pallor bilaterally. There were no hemorrhages or exudates. The cup-to-disc ratio on the left was difficult to discern but estimated 0.2. The vessels were mildly attenuated and there is mottling of the maculae. Spectral domain OCT nerve fiber layer analysis demonstrates polar distribution sectorial atrophy atthe discs bilaterally with measurements of 63 ??m on the right and 64 ??m on the left. Average ganglion layer thickness at the maculae in each eye was thinned, with measurements of 63 ??m on the right and 58 ??m on the left. FORMULATION: This is a 53-year-old man seen for follow-up neuro-ophthalmic evaluation because of the history of vision loss and disc edema. The examination is essentially stable compared to his last evaluation. The patient's pressures remain in the high normal range. I remain concerned for the potential for further worsening related to ocular hypertension and at present he is scheduled to see oneof my colleagues in glaucoma. The presentation remains most consistent with ischemic optic neuropathy, possibly worsened in the context of nocturnal hypoxia. I have encouraged him to continue to pursue strategies to allow him to tolerate CPAP. His dedicated orbit imaging shows only that which is expected based on his examination and nothing to suggest an alternate cause. The additional serologic studies ordered at his last visit were never drawn so I have encouraged him to have these done today. have asked that the patient come back for formal repeat evaluation in four months, certainly sooner if things are progressively worse. I will also make referral to the [place] [employer] as I think the patient would benefit from their services. I spent a total of 20 minutes on the date of this encounter meeting with the patient and reviewing documentation/coordinating care as described in the above note. Please do not hesitate to contact me with any further questions or concerns. Sincerely, Blayne Medina MD Diplomate, the [place] [employer] merchandise associate Department of Ophthalmology documented in this encounter Plan of Treatment Upcoming Encounters Date Type Department Care Team (Late st Contact Info) Description 05/01/2024 10:30 EDT Office Visit [facility] Ophthalmology [address] [phone] Blayne Medina MD [address] [place] [address], [address] [place] [phone] 08/17/2024 8:15 EST Office Visit [address] [address] David Gates MD [address] [facility], [address] [place] [address] Pending Results Name Type Priority Associated Diagnoses Date /Time LAMAR VF 24-2 FAST - OU - BOTH EYES Ophthalmology Routine Optic atrophy Vision loss 12/27/2023 14:24 EDT OCT, OPTIC NERVE - OU - BOTH EYES Ophthalmology Routine Optic atrophy Vision loss 12/27/2023 14:24 EDT documented as of this encounter Procedures Procedure Name Priority Date/Time Associated Diagnosis Comments LAMAR VF 24-2 FAST - OU - BOTH EYES Routine 12/27/2023 14:24 EDT Optic atrophy Vision loss OCT, OPTIC NERVE - OU - BOTH EYES Routine 12/27/2023 14:24 EDT Optic atrophy Vision loss documented in this encounter Visit Diagnoses Diagnosis Vision loss- Primary Unspecified visual loss Optic atrophy Optic atrophy, unspecified documented in this encounter Historical Medications * This list may reflect changes made after this encounter. Medication Sig Dispensed Refills Start Date End Date citalopram (CELEXA) 20 mg tablet Take 1 Tablet by mouth daily. added in this encounter Eye Exam Visual Acuity (Snellen - Linear) Right eye Left eye Dist cc 20/100 +2 20/150 -2 Dist ph cc 20/70 Near cc 20/200 20/200 Correction: Glasses Tonometry (iCare, 12:47) Right eye Left eye Pressure 22 21 Pupils Dark Light Shape React APD Right eye 3.5 3 Round Brisk Left eye 4 3 Round Brisk APD Extraocular Movement Right eye Left eye Full, Ortho Full, Ortho Neuro/Psych Oriented x3: Yes Mood/Affect: Normal Dilation Both eyes: Phenylephrine 2.5 %, Tropicamide 1% @ 13:17 Amsler Right eye Left eye Missing lines Missing lines/di stortions Color Right eye Left eye Ishihara 05/09 10/09 Stereo Fly: + Animals: 0/3 Circles: 0/9 Wearing Rx Sphere Cylinder Roggen Add Right eye +6.25 +0.25 180 +2.25 Left eye +5.50 +1.25 010 +2.25 Type: Bifocal Care Teams Territory Supervisor Relationship Specialty Start Date End Date Kim Caldwell NP [address] [place] [address] PCP - General Family Medicine - Primary Care 05/16/23 documented as of this encounter
--- OUTSIDE RECORDS SUMMARY | 2024-04-23 01:28 | XMS_ITS | Encounter Summary ---
Author Organization [facility] Address [address] [place] [address] Care Team Providers Care Broom Bundler Name Role Phone Kim Caldwell HYDROMETEOROLOGIST Primary Care Provider [phone] Reason for Referral * Radiology Services (Routine/Next Available) - Authorization Not Required Specialty Diagnoses / Procedures Referred By Contac t Referred To Contact Diagnoses Optic atrophy Procedures XR ORBITS FOR FOREIGN BODY Blayne Medina MD [address] [place] [phone] [facility] Referral ID Status Reason Start Date Expiration Date Visits Requested Visits Authorized [id number] Authorization Not Required 11/22/2023 1 1 Encounter Details Date Type Department Care Team (Late st Contact Info) Description 11/22/2023 Orders Only [facility] Ophthalmology - [address] [phone] Blayne Medina MD [address] [place] [phone] Optic atrophy (Primary Dx) Social History Tobacco Use Types Packs/Day Years Used Date Smoking Tobacco: Former Cigarettes Q uit: 2007 Smokeless Tobacco: Never Alcohol Use Standard Drinks/Week [...] Info) Description 05/01/2024 10:30 EDT Office Visit [address] [phone] Blayne Medina MD [address] [place] [phone] 08/17/2024 8:15 EST Office Visit [address] [id number] David Gates MD [address] [place] [phone] documented as of this encounter Results * XR ORBITS FOR FOREIGN BODY (12/24/2023 10:33 EDT) Anatomical Region Laterality Modality Computed Radiogr aphy 12/26/2023 12:4 6 EDT Impressions 12/26/2023 12:46 EDT 1. ??No evidence of metallic foreign body over the orbits. I have personally reviewed the images and the above interpretation and agree with the findings. [id number] Narrative 12/26/2023 12:46 EDT XR ORBITS FOR FOREIGN BODY ??12/24/2023 10:27 AM Signs and Symptoms/Comments: ?? needd for mri;H47.20:Optic atrophy. Comparison: None. Technique: Two views of the orbits and an exposed plate were obtained. Findings: There is no metallic foreign body projecting over the orbits. 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 Comparison: None. Technique: Two views of the orbits and an exposed plate were obtained. Findings: There is no metallic foreign body projecting over the orbits. IMPRESSION 1. No evidence of metallic foreign body over the orbits. I have personally reviewed the images and the above interpretation andagree with the findings. [id number] Blayne Medina MD IMG DIAGNOSTIC I MAGING ORDERABLES documented in this encounter Visit Diagnoses Diagnosis Optic atrophy- Primary Optic atrophy, unspecified Optic atrophy Optic atrophy, unspecified documented in this encounter Care Teams Broom Bundler Relationship Specialty Start Date End Date Kim Caldwell, JASMYN [address] [place] [address] PCP - General Family Medicine - Primary Care 05/16/23 documented as of this encounter
--- OUTSIDE RECORDS SUMMARY | 2024-04-23 01:28 | XMS_ITS | Encounter Summary ---
Author Organization [facility] Address [address] [place] [id number] Care Team Providers Care Customer Retention Specialist Name Role Phone Kim Caldwell METAL CASTER Primary Care Provider [phone] Reason for Referral * Radiology Services (Routine/Next Available) - Authorization Not Required Specialty Diagnoses / Procedures Referred By Farazac nazario Referred To Contact Diagnoses Optic atrophy Procedures XR ORBITS FOR FOREIGN BODY Blayne Medina MD [address] [place] [phone] [facility] Referral ID Status Reason Start Date Expiration Date Visits Requested Visits Authorized [id number] Authorization Not Required 11/22/2023 1 1 Reason for Visit * Radiology Services (Routine/Next Available) - Authorization Not Required Specialty Diagnoses / Procedures Referred By Nveaeh lange Referred To Contact Diagnoses Optic atrophy Procedures XR ORBITS FOR FOREIGN BODY Blayne Medina MD [address] [place] [phone] [facility] Referral ID Status Reason Start Date Expiration Date Visits Requested Visits Authorized [id number] Authorization Not Required 11/22/2023 1 1 Encounter Details Date Type Department Care Team (Latest Contact Info) Description 12/24/2023 10:26 EDT - 12/24/2023 23:59 EDT [facility] Center Radiology Xray - [address] [address] Optic atrophy Discharge Disposition: Home or Self Care Social History Tobacco Use Types Packs/Day Years [...] on file documented as of this encounter Medications at Time of Discharge Medication Sig Dispensed Refills Start Date End Date atorvastatin (LIPITOR) 20 mg tablet Take 1 Tablet by mouth daily. chlorthalidone (HYGROTON) 25 mg tablet Take 1 Tablet by mouth daily. empagliflozin (JARDIANCE) 25 mg tablet Take 1 Tablet by mouth daily. insulin aspart (NOVOLOG FLEXPEN U-100 INSULIN SUBQ) Inject into the skin 3 (three) times a day with meals. insulin glargine,hum.rec.anlog (LANTUS SUBQ) Inject 80 Units into the skin daily. lisinopriL (PRINIVIL) 30 mg tablet Take 40 mg by mouth daily. omeprazole (PRILOSEC) 20 mg capsule Take 1 Capsule by mouth daily. semaglutide (OZEMPIC) 2 mg/dose (8 mg/3 mL) pen injector Inject 2 mg into the skin once a week. timolol (TIMOPTIC) 0.5 % ophthalmic solution Place 1 Drop into both eyes 2 times daily. documented as of this encounter Discharge Disposition Disposition Code Departure Means Destination Home or Self Care documented in this encounter Plan of Treatment Upcoming Encounters Date Type Department Care Team (Late st Contact Info) Description 05/01/2024 10:30 EDT Office Visit [facility] Ophthalmology [address] [address] Blayne Medina MD [address] [place] [address], [address] [place] [phone] 08/17/2024 8:15 EST Office Visit [facility] Ophthalmology [address] [place] [address] [place] [address] David Gates MD [address] [facility], [address] [place] [address] documented as of this encounter Procedures Procedure Name Priority Date/Time Associated Diagnosis Comments XR ORBITS FOR FOREIGN BODY Routine 12/24/2023 10:33 EDT Optic atrophy documented in this encounter Results * XR ORBITS FOR FOREIGN BODY (12/24/2023 10:33 EDT) Anatomical Region Laterality Modality Computed Radiogr aphy 12/26/2023 12:4 6 EDT Impressions 12/26/2023 12:46 EDT 1. ??No evidence of metallic foreign body over the orbits. I have personally reviewed the images and the above interpretation and agree with the findings. [id number] Narrative 12/26/2023 12:46 EDT XR ORBITS FOR [...] the above interpretation andagree with the findings. [id number] Blayne Medina MD IMG DIAGNOSTIC I MAGING ORDERABLES documented in this encounter Visit Diagnoses Diagnosis Optic atrophy Optic atrophy, unspecified documented in this encounter Care Teams Customer Retention Specialist Relationship Specialty Start Date End Date Paulette, Kim A, METAL CASTER [address] [place] [address] PCP - General Family Medicine - Primary Care 05/16/23 documented as of this encounter
--- OUTSIDE RECORDS SUMMARY | 2024-04-23 01:28 | XMS_ITS | Encounter Summary ---
Author Organization [facility] Address [address] [place] [address] Care Team Providers Care Textile Screen Printer Name Role Phone Kim Caldwell WALNUT DEHYDRATOR OPERATOR Primary Care Provider [phone] Reason for Visit * Reason Comments Follow-up * Consult, Test and Treat (Routine) - Authorization Not Required Specialty Diagnoses / Procedures Referred By Nevaeh lange Referred To Contact Ophthalmology Diagnoses Optic nerve edema Gilma Neely [address] [place] [address] [place] [address] Blayne Medina MD [address] [place] [phone] Referral ID Status Reason Start Date Expiration Date Visits Requested Visits Authorized [id number] Authorization Not Required 1 1 Encounter Details Date Type Department Care Team (Late st Contact Info) Description 05/16/2023 10:00 EDT Office Visit [facility] Ophthalmology - [address] [id number] Blayne Medina MD [address] [place] [phone] Social History Tobacco Use Types Packs/Day [...] Progress Notes * Blayne Medina MD - 05/16/2023 1000 EDT DIVISION OF OPHTHALMOLOGY [facility] NEURO-OPHTHALMOLOGY FOLLOW-UP 05/16/2023 Mr. Gupta returned for follow-up neuro-ophthalmological examination because of the history of swollen optic nerves. To recall; this is a 52-year-old man who follows with Dr. Neely for [...] puncture all reported to be normal. He is referred for neuro-ophthalmic evaluation of the same. [...] vision had remained stable since seeing his die cutter, but he continued to note light sensitivity and darker vision in the left eye compared to the right. 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 I recommendedongoing monitoring and follow-up today. In the interval since the patient was last examined he reports that he feels 90% better. The patient denies other new difficulties in the interval. He does relay a history of obstructive sleep apnea but has been unable to tolerate CPAP due to an allergy to the straps used to keep the device in place on his face. The patient does not drive and has not driven for a long time. He denies other new concerns in the interval. He is scheduled for a follow-up optometric examination with Dr. Sean Wong. The ocular history, medical history, surgical history, social history, family history, medications and allergies are all unchanged except as noted above and documented in the EMR. The neuro-ophthalmic examination found the patient to be communicative and cooperative for testing.Visual acuities with correction were 20/70+ in the right eye without refractive; 20/80- in the lefteye without refractive refinement to 20/80. El 5 in each eye tested individually and near card.Color vision (Ishihara) showed no dyschromatopsia in the right eye, 8/10 correct plates with the left eye. Amsler [...] function was normal. There was no nystagmus. Applanation tonometry at 1051 hrs. was 25 mmHg in the right eye, 25 mmHg in the left eye. Slit-lamp examination revealed blepharitis, early break of thetear film, with somewhat shallow anterior chambers and 2+ nuclear sclerotic cataracts in each eye. A utomated (Lamar) visual koch were performed with moderate degree of technical difficulty. The right eye showed a pattern of constriction greatest nasally with a mean deviation score -20.76 dB and foveal threshold 17 dB. The left eye shows a general pattern of constriction with at least some suggestion of an altitudinal pattern inferiorly, mean deviation score -19.05 dB of foveal threshold 16dB. Dilated stereoscopic (indirect) funduscopy revealed a swollen nerve on the right and an atrophic nerve on the left with pallor. There were no hemorrhages or exudates. The cup-to-disc ratio on theleft was difficult to discern but estimated 0.2. The vessels were mildly attenuated and there is mot tling of the maculae. Spectral domain OCT nerve fiber layer analysis demonstrates elevation of the disc on the right measuring above the upper limit of normal; disc measurements were 71 ??m on the right and 66 ??m on the left. Average ganglion layer thickness at the maculae in each eye was thinned, left more so than right with measurements of 72 ??m on the right and 60 ??m on the left. FORMULATION: This is a 52-year-old man seen for follow-up neuro-ophthalmic evaluation because of the history of vision loss and disc edema. Clinically, the patient is stable if subtly improved. The previously seen disc edema has all but resolved. The patient does have somewhat shallow angles and elevated intraocular pressures. I have recommended that he see one of my colleagues in glaucoma and follow-up with his optometric examination as scheduled. I will reexamine the patient in six months, certainly sooner if new concerns arise in the interval. We did discuss the possible contribution of obstructive sleep apnea to nonarteritic anterior ischemic optic neuropathy. I have recommended that he revisit this with his primary care provider not so much due to the potential that he might run into more visual troubles related to untreated obstructive sleep apnea, but due to the known, well-established, overall health concerns related to untreated obstructive sleep apnea. I spent a total of 30 minutes on the date of this encounter meeting with the patient and reviewing documentation/coordinating care as described in the above note. Please do not hesitate to contact me with any further questions or concerns. Sincerely, Blayne Medina MD Diplomate, the [employer] electrician supervisor substation Department of Ophthalmology documented in this encounter Plan of Treatment Upcoming Encounters Date Type Department Care Team (Late st Contact Info) Description 05/01/2024 10:30 EDT Office Visit [facility] Ophthalmology [address] [address] Blayne Medina MD [address] [place] [phone] 08/17/2024 8:15 EST Office Visit [facility] Ophthalmology [address] [id number] David Gates MD [address] [place] [phone] Pending Results Name Type Priority Associated Diagnoses Date /Time LAMAR VF 24-2 FAST - OU - BOTH EYES Ophthalmology Routine Optic disc edema Vision loss 05/16/2023 12:37 EDT OCT, OPTIC NERVE - OU - BOTH EYES Ophthalmology Routine Optic disc edema Vision loss 05/16/2023 12:36 EDT documented as of this encounter Procedures Procedure Name Priority Date/Time Associated Diagnosis Comments LAMAR VF 24-2 FAST - OU - BOTH EYES Routine 05/16/2023 12:37 EDT Optic disc edema Vision loss OCT, OPTIC NERVE - OU - BOTH EYES Routine 05/16/2023 12:36 EDT Optic disc edema Vision loss documented in this encounter Visit Diagnoses Diagnosis Vision loss- Primary Unspecified visual loss Optic disc edema Papilloedema, unspecified documented in this encounter Eye Exam Visual Acuity (Snellen - Linear) Right eye Left eye Dist cc 20/70 +1 20/80 -1 Dist ph cc 20/70 +1 NI Near cc J5 J5 +2 Correction: Glasses Tonometry (Applanation, 10:51) Right eye Left eye Pressure 25 25 Pupils Dark Light Shape React APD Right eye 2.5 2.25 Round Brisk None Left eye 2.5 2 Round Brisk None Visual Koch (Counting fingers) Right eye Left eye Restrictions Partial outer superi or temporal, inferior temporal, superior nasal, inferior nasal deficiencies Partial outer inferior temporal, superior nasal, inferior nasal deficiencies Extraocular Movement Right eye Left eye Full, Ortho Full, Ortho Neuro/Psych Oriented x3: Yes Mood/Affect: Normal Amsler Right eye Left eye Normal Wavy lines Color Right eye Left eye Ishihara 07/05 05/05 Stereo Fly: - Animals: 1/ Circles: 0/9 Wearing Rx Sphere Cylinder [place] Add Right eye +6.25 +0.25 180 +2.25 Left eye +5.50 +1.25 010 +2.25 Type: Bifocal Care Teams Textile Screen Printer Relationship Specialty Start Date End Date Kim Caldwell NP [address] [place] [address] PCP - General Family Medicine - Primary Care 05/16/23 documented as of this encounter
--- OUTSIDE RECORDS SUMMARY | 2024-04-23 01:28 | XMS_ITS | Encounter Summary ---
Author Organization [facility] Address [address] [place] [address] Care Team Providers Care Head Butler Name Role Phone Shana Ceballos ROOFING CONTRACTOR Primary Care Provider [phone] Chao Wise RPA Primary Care Provider [phone] Kim Caldwell ROOFING CONTRACTOR Primary Care Provider [phone] Encounter Details Date Type Department Care Team (Late Contact Info) Description 01/09/2022 Lab Requisition [facility] Pathology & Laboratory Medicine - [address] [id number] Outr Resulting Lab, Provider Social History Tobacco [...] Upcoming Encounters Date Type Department Care Team ([facility] Contact Info) Description 05/01/2024 10:30 EDT Office Visit [facility] Ophthalmology - [address] [id number] Blayne Medina MD [address] [facility], [address] [place] [phone] 08/17/2024 8:15 EST Office Visit [facility] Ophthalmology - [facility] [address] [place] [address] David Gates MD [address] [facility], [address] [place] [phone] documented as of this encounter Procedures Procedure Name Priority Date/Time Associated Diagnosis Comments ZZCOVID-19 TEST [facility] PCR Today 01/08/2022 11:10 EDT COVID-19 TESTING Routine 01/08/2022 11:1 0 EDT documented in this encounter Results * COVID-19 TEST [facility] PCR (01/08/2022 11:10 EDT) Swab 01/08/2022 11:1 0 EDT 01/09/2022 21:51 EDT Provider Outr Resulting Lab MICROBIOLOGY - GENERAL ORDERABLES [facility] [address] [place] [address] * COVID-19 TESTING (01/08/2022 11:10 EDT) COVID-19 rt-PCR Result Negative Negative 01/10/2022 10:52 EDT [facility] Comment: This test has not been FDA cleared or approved. This test has been authorized by FDA under an EUA for use by authorized laboratories. This test has been authorized only for detection of nucleic acid from 2019-nCoV, not for any other viruses or pathogens. This test is only authorized for the duration of the declaration that circumstances exist justifying the authorization of emergency use of in vitro diagnostic tests for detection and/or diagnosis of 2019-nCoV under section 564(b)(1) of Act, 21 U.S.C ?? 360bbb-3(b) (1), unless the authorization is terminated or revoked sooner. Negative results do not preclude 2019-nCoV infection and should not be used as the sole basis for treatment or other patient management decisions. Negative results must be combined with clinical observations, patient history, and epidemiological information. Testing was performed using the ever SARS-CoV-2 assay ([employer] on the Ever 6800 System Performing Lab Ever 6800 [facility] 01/10/2022 10:52 EDT [facility] Swab 01/08/2022 11:1 0 EDT 01/09/2022 21:51 EDT Provider Outr Resulting Lab MICROBIOLOGY - GENERAL ORDERABLES [facility] [address] [place] [address] documented in this encounter Visit Diagnoses Not on filedocumented in this encounter Care Teams Head Butler Relationship Specialty Start Date End Date Shana Ceballos NP [address] [place] [address] PCP - General 09/26/19 03/10/23 Chao Wise RPA [address] [address] PCP - General Family Medicine - Primary Care 03/11/23 05/15/23 Kim Caldwell NP [address] [place] [address] PCP - General Family Medicine - Primary Care 05/16/23 documented as of this encounter
--- OUTSIDE RECORDS SUMMARY | 2024-04-23 01:28 | XMS_ITS | Encounter Summary ---
Author Organization [facility] Address [address] [place] [address] Care Team Providers Care Senior Data Integration Developer Name Role Phone Shana Ceballos JEWELRY RACKER Primary Care Provider [phone] Chao Wise RPA Primary Care Provider [phone] Kim Caldwell JEWELRY RACKER Primary Care Provider [phone] Encounter Details Date Type Department Care Team (Late Contact Info) Description 05/27/2022 Lab Requisition [facility] Pathology & Laboratory Medicine - [address] [phone] Outr Resulting Lab, Provider Social History Tobacco [...] Upcoming Encounters Date Type Department Care Team ([facility] Contact Info) Description 05/01/2024 10:30 EDT Office Visit [facility] Ophthalmology - [address] [address] Blayne Medina MD [address] [facility], [address] [place] [phone] 08/17/2024 8:15 EST Office Visit [facility] Ophthalmology - [facility] [address] [place] [address] David Gates MD [address] [facility], [address] [place] [phone] documented as of this encounter Procedures Procedure Name Priority Date/Time Associated Diagnosis Comments URINE [id number]-[id number] NE RATIO (ACR) Routine 05/26/2022 11:34 EDT documented in this encounter Results * (ABNORMAL) URINE [id number] RATIO (ACR) (05/26/2022 11:34 EDT) Albumin, Urine 1.7 See Note mg/dL 2021 17:49 EDT [facility] Comment: NOTE: Reference range not established Creatinine, Urine 33.7 See Note mg/dL 05/27/2022 17:49 EDT [facility] Comment: NOTE: Reference range not established Lab Urine Albumin to Creatinine Ratio 50(H) <30 ??g/mg Creatinine 05/27/2022 17:49 EDT [facility] Comment: Urine Albumin/Creatinine Ratio: Normal: <30 ug/mg Creatinine Moderately increased albuminuria: 30-300 ug/mg Creatinine Neena increased albuminuria: >300 ug/mg Creatinine Urine URINE SPECIMEN COLLECTION, CLEAN CATCH / Unknown 05/26/2022 11:34 EDT 05/27/2022 17:22 EDT Provider Outr Resulting Lab CHEMISTRY & BLOOD GAS ORDERABLES [facility] [address] [place] [address] documented in this encounter Visit Diagnoses Not on filedocumented in this encounter Care Teams Senior Data Integration Developer Relationship Specialty Start Date End Date Shana Ceballos NP [address] [facility] [facility] [place] [address] PCP - General 09/26/19 03/10/23 Chao Wise RPA [address] [address] PCP - General Family Medicine - Primary Care 03/11/23 05/15/23 Kim Caldwell NP [address] [place], [place] [phone] PCP - General Family Medicine - Primary Care 05/16/23 documented as of this encounter
--- OUTSIDE RECORDS SUMMARY | 2024-04-23 01:28 | XMS_ITS | Encounter Summary ---
Author Organization [facility] Address [address] [place] [address] Care Team Providers Care Ripening Room Attendant Name Role Phone Chao Wise Guerrero [facility] Primary Care Provider [phone] Encounter Details Date Type Department Care Team ([facility] Contact Info) Description 03/16/2023 14:45 EDT Phlebotomy Only [facility] 2 Phlebotomy [address] [place], [place] [address] Java Technical Architect, Acc Phlebotomy Optic disc edema Social History Tobacco Use Types Packs/Day Years [...] Upcoming Encounters Date Type Department Care Team ([facility] Contact Info) Description 05/01/2024 10:30 EDT Office Visit [address] [phone] Blayne Medina MD [address] [facility], [address] [place] [phone] 08/17/2024 8:15 EST Office Visit [address] [address] David Gates MD [address] [facility], [address] [place] [address] documented as of this encounter Procedures Procedure Name Priority Date/Time Associated Diagnosis Comments STORY EDITOR DEMYELINATING DISEASE EVALUATION, S Routine 03/16/2023 15:02 EDT Optic disc edema METHYLMALONIC ACID Routine 03/16/2023 15 :02 EDT Optic disc edema COMPLETE BLOOD COUNT Routine 03/16/2023 15:02 EDT Optic disc edema VITAMIN B12 Routine 03/16/2023 15:02 EDT Optic disc edema documented in this encounter Results * COMPLETE BLOOD COUNT (03/16/2023 15:02 EDT) WBC 9.80 4.00 - 10.40 K/cmm 03/16/2023 15:30 [facility] RBC 5.59 4.36 - 5.78 M/cmm 03/16/2023 15:30 [facility] Hemoglobin 15.5 13.8 - 17.3 g/dL 03/16/2023 15:30 [facility] HCT 46.2 39.5 - 50.2 % 03/16/2023 15:30 [facility] MCV 83 81 - 95 fL 03/16/2023 15:30 [facility] MCH 27.7 27.6 - 33.0 pg 03/16/2023 15:30 [facility] MCHC 33.5 32.8 - 36.4 g/dL 03/16/2023 15:30 [facility] RDW-CV 13.4 <14.2 % 03/16/2023 15:30 [facility] RDW-SD 40.4 <46.0 fl 03/16/2023 15:30 [facility] PLT 177 141 - 377 K/cmm 03/16/2023 15:30 EDT [facility] MPV 12.1 9.5 - 12.7 fL 03/16/2023 15:30 EDT [facility] Blood VENOUS BLOOD / Unknown Venipuncture / Unknown 03/16/2023 15:02 EDT 03/16/2023 15:13 EDT Blayne Medina MD HEMATOLOGY & PF4 ORDERABLES Performing Organization Address City/[facility]/ZIP Co de Phone Number [facility] [address] [place] [address] * METHYLMALONIC ACID (03/16/2023 15:02 EDT) Methylmalonic Acid, QN, S 0.23 <=0.40 nmol/mL 03/19/2023 9:35 EDT [facility] Comment: ADDITIONAL INFORMATION This test was developed and its performance characteristics determined by [facility] in a manner consistent with CLIA requirements. This test has not been cleared or approved by the U.S. Food and Drug Administration. Test Performed by: [address] [address] Video Software Engineer: Ritesh Bo M.D. Ph.D.; CLIA# [id number] Blood VENOUS BLOOD / Unknown Venipuncture / Unknown 03/16/2023 15:02 EDT 03/16/2023 15:13 EDT Blayne Medina MD CHEMISTRY & BLOO D GAS ORDERABLES Performing Organization Address [facility]/ZIP Co de Phone Number [address] [address] * VITAMIN B12 (03/16/2023 15:02 EDT) Vitamin B12 694 211 - 911 pg/mL 03/16/2023 16:28 EDT [facility] Blood VENOUS BLOOD / Unknown Venipuncture / Unknown 03/16/2023 15:02 EDT 03/16/2023 15:13 EDT Blayne Medina MD CHEMISTRY & BLOO D GAS ORDERABLES Performing Organization Address City/State/[facility] Co de Phone Number [facility] [address] [place] [address] * STORY EDITOR DEMYELINATING DISEASE EVALUATION, S (03/16/2023 15:02 EDT) Pathologist [facility] STORY EDITOR Demyelinating Disease Interp, S SEE NOTE 03/21/2023 5:41 EDT [facility] Comment: No informative autoantibodies were detected in this evaluation. A negative result does not preclude a diagnosis of an inflammatory STORY EDITOR demyelinating disorder. NMO/AQP4 FACS, S Negative Negative 03/21/20 5:41 EDT [facility] [employer] Comment: ADDITIONAL INFORMATION This test was developed and its performance characteristics determined by [facility] in a manner consistent with CLIA requirements. This test has not been cleared or approved by the U.S. Food and Drug Administration. MOG FACS, S Negative Negative 03/21/2023 5:41 EDT [facility] [employer] Comment: ADDITIONAL INFORMATION This test was developed and its performance characteristics determined by [facility] in a manner consistent with CLIA requirements. This test has not been cleared or approved by the U.S. Food and Drug Administration. Test Performed by: [facility] - [address] [address] Video Software Engineer: Ritesh oB M.D. Ph.D.; CLIA# [id number] Blood VENOUS BLOOD / Unknown Venipuncture / Unknown 03/16/2023 15:02 EDT 03/16/2023 15:13 EDT Blayne Medina MD IMMUNOLOGY AND S EROLOGY ORDERABLES [facility] [address] [place] [address] documented in this encounter Visit Diagnoses Diagnosis Optic disc edema Papilloedema, unspecified documented in this encounter Care Teams Ripening Room Attendant Relationship Specialty Start Date End Date Chao Wise RPA [address] [place] [address] PCP - General Family Medicine - Primary Care 03/11/23 05/15/23 documented as of this encounter
--- OUTSIDE RECORDS SUMMARY | 2024-04-23 01:28 | XMS_ITS | Encounter Summary ---
Author Organization [facility] Address [address] [place] [address] Care Team Providers Care Channel Cementer Outsole Machine Name Role Phone Shana Ceballos INFERTILITY NURSE Primary Care Provider [phone] Chao Wise RPA Primary Care Provider [phone] Kim Caldwell INFERTILITY NURSE Primary Care Provider [phone] Encounter Details Date Type Department Care Team (Late Contact Info) Description 05/13/2020 Lab Requisition [facility] Pathology & Laboratory Medicine [address] [id number] Lanette Harrison MD [address] [place], [place] [phone] Encounter for other general examination Social History Tobacco Use Types Packs/Day Years [...] Info) Description 05/01/2024 10:30 EDT Office Visit [facility] Ophthalmology - [address] [id number] Blayne Medina MD [address] [place] [address], [address] [place] [address] 08/17/2024 8:15 EST Office Visit [facility] Ophthalmology - [facility] [address], [place] [phone] David Gates MD 111 [facility], [address] [place] [address] documented as of this encounter Procedures Procedure Name Priority Date/Time Associated Diagnosis Comments SURGICAL PATHOLOGY Today 05/13/2020 9: 30 EDT Encounter for other general examination documented in this encounter Results * SURGICAL PATHOLOGY (05/13/2020 9:30 EDT) Final Diagnosis A. DUODENUM, BIOPSY: - Small intestinal mucosa with no significant diagnostic abnormality. B. STOMACH, BIOPSY: - Gastric antral and fundic mucosa with reactive (chemical) gastropathy. - Negative for Helicobacter pylori microorganisms on H&E stained sections. C. ESOPHAGUS, BIOPSY: - Gastric-type mucosa with intestinal metaplasia. - Negative for dysplasia. - Squamous mucosa with mild reactive changes. 05/15/2020 11:03 [facility] Attestation There was significant resident/fellow involvement in the diagnostic evaluation of this case. By the signature below, the attending physician certifies that they have personally conducted a gross and/or microscopic examination of the described specimens and rendered or confirmed the above diagnosis. 05/15/2020 11:03 [facility] at 1103 Clinical History Epigastric pain 05/15/2020 11:03 [facility] Gross Description A. Received in formalin labelled with proper patient identification (initials R, G) and duodenal Bx are 2 gr-brown tissues (0.4 x 0.3 x 0.2 cm and 0.5 x 0.3 x 0.1 cm). Submitted in toto in A1. B. Received in formalin labelled with proper patient identification (initials R, G) and gastric Bxs are 2 gr-brown tissues (0.3 x 0.3 x 0.2 cm and 0.4 x 0.3 x 0.1 cm). Submitted in toto in B1. C. Received in formalin labelled with proper patient identification (initials R, G) and esophageal Bxs are 3 white-gr tissues (0.3 x 0.2 x 0.1 cm to 0.5 x 0.3 x 0.1 cm). Submitted in toto in C1. Kendy Roger 05/14/2020 8:31 05/15/2020 11:03 EDT [facility] Resident/[place] w: Kevin Meraz MD 05/15/2020 11:03 EDT [facility] Performing Lab [facility] 05/15/2020 11:03 EDT [facility] Scanned Images 05/15/2020 11:03 EDT [facility] Tissue ENTIRE ESOPHAGUS / Unknown 05/13/2020 9:30 EDT 05/13/2020 17:40 EDT Tissue specimen (specimen) STOMACH STRUCTURE / Unknown 05/13/2020 9:30 EDT 05/13/2020 17:40 EDT Tissue specimen (specimen) ESOPHAGEAL STRUCTURE / Unknown 05/13/2020 9:30 EDT 05/13/2020 17:40 EDT Lanette Harrison MD PATHOLOGY ORDERABLES [facility] [address] [place] [address] documented in this encounter Visit Diagnoses Diagnosis Encounter for other general examination documented in this encounter Care Teams Channel Cementer Outsole Machine Relationship Specialty Start Date End Date Shana Ceballos NP [address] [place], [place] [phone] PCP - General 09/26/19 03/10/23 Chao Wise RPA [address] [phone] PCP - General Family Medicine - Primary Care 03/11/23 05/15/23 Kim Caldwell NP [address] [place] [address] PCP - General Family Medicine - Primary Care 05/16/23 documented as of this encounter
--- OUTSIDE RECORDS SUMMARY | 2024-04-23 01:28 | XMS_ITS | Encounter Summary ---
Author Organization [facility] Address [address] [place] [address] Care Team Providers Care Fund Accountant Name Role Phone Dinorah Caldwellyce Deysi HEADING AND PRIMING TOOL SETTER Primary Care Provider [phone] Encounter Details Date Type Department Care Team (Late st Contact Info) Description 11/17/2023 Orders Only [facility] Radiology [address] [id number] Evan Brar MD [address] [place] [phone] Social History Tobacco Use Types Packs/Day Years [...] Info) Description 05/01/2024 10:30 EDT Office Visit [facility] Ophthalmology [address] [id number] Blayne Medina MD [address] [place] [address], [address] [place] [phone] 08/17/2024 8:15 EST Office Visit [facility] Ophthalmology - [place] [address] [place], [place] [phone] David Gates MD 111 [facility], [address] [place] [phone] documented as of this encounter Visit Diagnoses Not on filedocumented in this encounter Care Teams Fund Accountant Relationship Specialty Start Date End Date Kim Caldwell NP [address] [place] [address] PCP - General Family Medicine - Primary Care 05/16/23 documented as of this encounter
--- OUTSIDE RECORDS SUMMARY | 2024-04-23 01:28 | XMS_ITS | Encounter Summary ---
Author Organization [facility] Address [address] [place] [address] Care Team Providers Care Dehydrator Name Role Phone Kim Caldwell SALES EXHIBITOR Primary Care Provider [phone] Reason for Referral * Radiology Services (Routine/Next Available) - Authorization Not Required Specialty Diagnoses / Procedures Referred By Contac t Referred To Contact Radiology Diagnoses Vision loss, bilateral Optic atrophy Procedures MR HEAD W Blayne Gallo MD [address] [place] [phone] [facility] Referral ID Status Reason Start Date Expiration Date Visits Requested Visits Authorized [id number] Authorization Not Required 11/24/2023 1 1 * Radiology Services (Routine/Next Available) - Authorization Not Required Specialty Diagnoses / Procedures Referred By Contac t Referred To Contact Radiology Diagnoses Vision loss, bilateral Optic atrophy Procedures MR ORBIT W Blayne Gallo MD [address] [address] [facility] Referral ID Status Reason Start Date Expiration Date Visits Requested Visits Authorized [id number] Authorization Not Required 11/24/2023 1 1 Reason for Visit * Radiology Services (Routine/Next Available) - Authorization Not Required Specialty Diagnoses / Procedures Referred By Contac t Referred To Contact Radiology Diagnoses Vision loss, bilateral Optic atrophy Procedures MR HEAD W WO [place] Medina, Blayne Leon MD 111 [facility], [address] [place] [address] [facility] Referral ID Status Reason Start Date Expiration Date Visits Requested Visits Authorized [id number] Authorization Not Required 11/24/2023 1 1 Encounter Details Date Type Department Care Team (Latest Contact Info) Description 12/24/2023 9:48 EDT - 12/24/2023 10:25 EDT Hospital Encounter Medical [facility] Radiology MRI - [facility] [address] [place] [address] Vision loss, bilateral; Optic atrophy Discharge Disposition: Home or Self [...] Info) Description 05/01/2024 10:30 EDT Office Visit [address] [phone] Blayne Medina MD [address] [place] [phone] 08/17/2024 8:15 EST Office Visit [address] [phone] David Gates MD [address] [place] [phone] documented as of this encounter Procedures Procedure Name Priority Date/Time Associated Diagnosis Comments MR HEAD W WO CONTRAST Routine 12/24/2023 11:47 EDT Vision loss, bilateral Optic atrophy MR ORBIT W WO CONTRAST Routine 12/24/2023 11:47 EDT Vision loss, bilateral Optic atrophy documented in this encounter Results * MR HEAD W WO CONTRAST (12/24/2023 11:47 EDT) Anatomical Region Laterality Modality Head Magnetic Resonan ce 12/24/2023 15:4 4 EDT Impressions 12/24/2023 15:44 EDT MRI HEAD: Probable sequela of mild chronic microvascular ischemic changes. Otherwise, normal enhanced MRI of the brain. MRI ORBITS: Nonspecific chronic bilateral optic neuritis. [id number] Narrative 12/24/2023 15:44 EDT EXAM: MRI HEAD WO/W CONTRAST MRI ORBITS WO/W CONTRAST HISTORY: progressive vision los sw/ optic atrophy;H54.3:Vision loss, bilateral;H47.20:Optic atrophy TECHNIQUE: MRI head and orbits without and with intravenous gadolinium contrast. Structured report code: [id number] COMPARISON: None. FINDINGS: MRI HEAD: PARENCHYMA: No evidence of infarction. No parenchymal hemorrhage. No mass or shift of structures across the midline. Nonspecific white matter changes. EXTRA-AXIAL SPACES: No extra-axial collection. No extra-axial mass. VENTRICLES: No hydrocephalus. VESSELS: The flow voids and intravascular enhancement are normal. BONES: Unremarkable. PARANASAL SINUSES/MASTOID AIR CELLS: Predominantly clear. EXTRACRANIAL SOFT TISSUES: Unremarkable. MRI ORBITS: GLOBES: Normal. OPTIC NERVES: Decreased caliber of the optic chiasm and optic nerves bilaterally with left greater than right increased FLAIR signal involving the prechiasmatic, intracanicular and intraorbital portions of the optic nerves. EXTRAOCULAR MUSCLES: Normal. INTRACONAL AND EXTRACONAL FAT: Clear. VESSELS: The flow voids and intravascular enhancement are normal. LACRIMAL GLANDS: Normal. Procedure Note Anitra Boucher MD - 12/24/2023 EXAM: MRI HEAD WO/W CONTRAST MRI ORBITS WO/W CONTRAST HISTORY: progressive vision los sw/ optic atrophy;H54.3:Vision loss,bilateral;H47.20:Optic atrophy TECHNIQUE: MRI head and orbits without and with intravenous gadoliniumcontrast. Structured report code: [id number] COMPARISON: None. FINDINGS: MRI HEAD: PARENCHYMA: No evidence of infarction. No parenchymal hemorrhage. No mass or shift ofstructures across the midline. Nonspecific white matter changes. EXTRA-AXIAL SPACES: No extra-axial collection. No extra-axial mass. VENTRICLES: No hydrocephalus. VESSELS: The flow voids and intravascular enhancement are normal. BONES: Unremarkable. PARANASAL SINUSES/MASTOID AIR CELLS: Predominantly clear. EXTRACRANIAL SOFT TISSUES: Unremarkable. MRI ORBITS: GLOBES: Normal. OPTIC NERVES: Decreased caliber of the optic chiasm and optic nerves bilaterally withleft greater than right increased FLAIR signal involving theprechiasmatic, intracanicular and intraorbital portions of the opticnerves. EXTRAOCULAR MUSCLES: Normal. INTRACONAL AND EXTRACONAL FAT: Clear. VESSELS: The flow voids and intravascular enhancement are normal. LACRIMAL GLANDS: Normal. IMPRESSION MRI HEAD: Probable sequela of mild chronic microvascular ischemic changes.Otherwise, normal enhanced MRI of the brain. MRI ORBITS: Nonspecific chronic bilateral optic neuritis. [id number] Blayne Medina MD IMG MRI ORDERABL ES * MR ORBIT W WO CONTRAST (12/24/2023 11:47 EDT) Anatomical Region Laterality Modality Head Magnetic Resonan ce 12/24/2023 15:4 4 EDT Impressions 12/24/2023 15:44 EDT MRI HEAD: Probable sequela of mild chronic microvascular ischemic changes. Otherwise, normal enhanced MRI of the brain. MRI ORBITS: Nonspecific chronic bilateral optic neuritis. [id number] Narrative 12/24/2023 15:44 EDT EXAM: MRI HEAD WO/W CONTRAST MRI ORBITS WO/W CONTRAST HISTORY: progressive vision los sw/ optic atrophy;H54.3:Vision loss, bilateral;H47.20:Optic atrophy TECHNIQUE: MRI head and orbits without and with intravenous gadolinium contrast. Structured report code: [id number] COMPARISON: None. FINDINGS: MRI HEAD: PARENCHYMA: No evidence of infarction. No parenchymal hemorrhage. No mass or shift of structures across the midline. Nonspecific white matter changes. EXTRA-AXIAL SPACES: No extra-axial collection. No extra-axial mass. VENTRICLES: No hydrocephalus. VESSELS: The flow voids and intravascular enhancement are normal. BONES: Unremarkable. PARANASAL SINUSES/MASTOID AIR CELLS: Predominantly clear. EXTRACRANIAL SOFT TISSUES: Unremarkable. MRI ORBITS: GLOBES: Normal. OPTIC NERVES: Decreased caliber of the optic chiasm and optic nerves bilaterally with left greater than right increased FLAIR signal involving the prechiasmatic, intracanicular and intraorbital portions of the optic nerves. EXTRAOCULAR MUSCLES: Normal. INTRACONAL AND EXTRACONAL FAT: Clear. VESSELS: The flow voids and intravascular enhancement are normal. LACRIMAL GLANDS: Normal. Procedure Note Anitra Boucher MD - 12/24/2023 EXAM: MRI HEAD WO/W CONTRAST MRI ORBITS WO/W CONTRAST HISTORY: progressive vision los sw/ optic atrophy;H54.3:Vision loss,bilateral;H47.20:Optic atrophy TECHNIQUE: MRI head and orbits without and with intravenous gadoliniumcontrast. Structured report code: [id number] COMPARISON: None. FINDINGS: MRI HEAD: PARENCHYMA: No evidence of infarction. No parenchymal hemorrhage. No mass or shift ofstructures across the midline. Nonspecific white matter changes. EXTRA-AXIAL SPACES: No extra-axial collection. No extra-axial mass. VENTRICLES: No hydrocephalus. VESSELS: The flow voids and intravascular enhancement are normal. BONES: Unremarkable. PARANASAL SINUSES/MASTOID AIR CELLS: Predominantly clear. EXTRACRANIAL SOFT TISSUES: Unremarkable. MRI ORBITS: GLOBES: Normal. OPTIC NERVES: Decreased caliber of the optic chiasm and optic nerves bilaterally withleft greater than right increased FLAIR signal involving theprechiasmatic, intracanicular and intraorbital portions of the opticnerves. EXTRAOCULAR MUSCLES: Normal. INTRACONAL AND EXTRACONAL FAT: Clear. VESSELS: The flow voids and intravascular enhancement are normal. LACRIMAL GLANDS: Normal. IMPRESSION MRI HEAD: Probable sequela of mild chronic microvascular ischemic changes.Otherwise, normal enhanced MRI of the brain. MRI ORBITS: Nonspecific chronic bilateral optic neuritis. [id number] Blayne Medina MD IMG MRI ORDERABL ES documented in this encounter Visit Diagnoses Diagnosis Vision loss, bilateral Unqualified visual loss, both eyes Optic atrophy Optic atrophy, unspecified documented in this encounter Administered Medications Inactive Administered Medications - up to 3 most recent administrations Medication Order MAR Action Action Date Dose Rate Site gadoterate meglumine solution 1-30 mL 1-30 mL, intravenous, Once in imaging, 1 dose, Starting on 12/24/23 at 1044, Until 12/24/23 at 1147, Routine, Imaging Protocol Orders Given 12/24/2023 11:47 EDT 22 mL IV documented in this encounter Orders Medications Ordered That David ht Not Have Been Administered Count Last Ordered Date First Ordered Date gadoterate meglumine solution 1-30 mL 1 documented in this encounter Care Teams Dehydrator Relationship Specialty Start Date End Date Kim Caldwell NP [address] [place] [address] PCP - General Family Medicine - Primary Care 05/16/23 documented as of this encounter
--- OUTSIDE RECORDS SUMMARY | 2024-04-23 01:28 | XMS_ITS | Encounter Summary ---
Author Organization [facility] Address [address] [place] [address] Care Team Providers Care Clinic Office Coordinator Name Role Phone Kim Caldwell BOAT PATCHER PLASTIC Primary Care Provider [phone] Reason for Referral * Radiology Services (Routine/Next Available) - Authorization Not Required Specialty Diagnoses / Procedures Referred By Contac t Referred To Contact Radiology Diagnoses Vision loss, bilateral Optic atrophy Procedures MR HEAD W Blayne Gallo MD [address] [place] [phone] [facility] Referral ID Status Reason Start Date Expiration Date Visits Requested Visits Authorized [id number] Authorization Not Required 11/24/2023 1 1 * Radiology Services (Routine/Next Available) - Authorization Not Required Specialty Diagnoses / Procedures Referred By Contac t Referred To Contact Radiology Diagnoses Vision loss, bilateral Optic atrophy Procedures MR ORBIT W Blayne Gallo MD [address] [address] [facility] Referral ID Status Reason Start Date Expiration Date Visits Requested Visits Authorized [id number] Authorization Not Required 11/24/2023 1 1 Reason for Visit * Reason Comments Follow-up Encounter Details Date Type Department Care Team ([facility] st Contact Info) Description 11/17/2023 10:15 EST [facility] - Main [place] [address] [place] [address] Blayne Medina MD 111 [facility], [address] [place] [address] Social History Tobacco Use Types [...] on file documented as of this encounter Patient Instructions * Patient Instructions* Blayne Medina MD - 11/17/2023 10:15 EST To Glaucoma - w/in 6 weeks - return to me w/in 6 weeks documented in this encounter Progress Notes * Blayne Medina MD - 11/17/2023 1015 EST DIVISION OF OPHTHALMOLOGY [facility] NEURO-OPHTHALMOLOGY FOLLOW-UP 11/17/2023 Mr. Gupta returned for follow-up neuro-ophthalmological examination [...] vision had remained stable since seeing his storage battery inspector, but he continued to note light sensitivity and darker vision in the left eye compared to the right. 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 I recommendedongoing monitoring. At the time of the patient's last evaluation with me on May 19, 2023 he reported that he felt 90% better. The patient denied new difficulties in the interval. The history suggest that the patient did have obstructive sleep apnea as well and had been intolerant of CPAP. The patient had stopped driving. He had follow-up scheduled with Dr. Pettit. The exam at that time showed stability if subtle improvement with resolution of the previously seen edema and atrophy having taken his place. The patient was noted to have elevated intraocular pressures and as such I recommended evaluations with my colleagues in glaucoma and at the very least ongoing monitoring through his storage battery inspector. The patient had scheduled to follow-up with his storage battery inspector in June. In May, prior to that visit thepatient called the office with new floaters in the left eye. It was recommended that he be seen locally and sent here for further evaluation if additional concerns were identified. In the interval, the patient reports that he thinks his vision is worse, this is occurred graduallyover time and remains painless. He has had further evaluation for sleep apnea and has been told that he has sleep apnea including being identified to have oxygen desaturations into the 80's at night. He is working to try to find a mask for CPAP machine that would allow him to tolerate this. The patient does relate that his blood pressure and blood sugars have been better controlled in the interval. He denies other new difficulties in the interval. The ocular history, medical history, surgical history, social history, family history, medications and allergies are all unchanged except as noted above and documented in the EMR. The neuro-ophthalmic examination found the patient to be communicative and cooperative for testing.Visual acuities with correction were 20/80+2 in the right eye; 20/150- in the left eye without refractive refinement. El 7 in the right eye and El 16 in the left eye on and near card. Color vision (Ishihara) showed 5/10 correct plates with each eye tested individually. Amsler grid testing showed no metamorphopsia. The pupils were equal in size and showed a left relative afferent pupillarydefect. 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 The lids showed 1to 2 mm ptosis bilaterally with no lid lag or twitch. Examination of extraocular motility showed a small left hyper in primary gaze. Ductions were full. Pursuit and saccade function was normal. Therewas no nystagmus. Applanation tonometry at 1123 hrs. was 22 mmHg in the right eye, 22 mmHg in the left eye. Slit-lamp examination revealed blepharitis, early break of the tear film, with somewhat shallow anterior chambers and 2+ nuclear sclerotic cataracts in each eye. Automated (Lamar) visual koch were performed with moderate degree of technical difficulty. The right eye showed a pattern ofconstriction greatest nasally with a mean deviation score -22.21 dB and foveal threshold 19 dB. Theleft eye shows a general pattern of constriction with at least some suggestion of an altitudinal pattern inferiorly, mean deviation score -27.49 dB of foveal threshold 23 dB. Dilated stereoscopic (indirect) funduscopy revealed a swollen [...] atrophy atthe discs bilaterally with measurements of 66 ??m on the right and 68 ??m on the left. Average ganglion layer thickness at the maculae in each eye was thinned, with measurements of 63 ??m on the right and 62 ??m on the left. FORMULATION: This is a 52-year-old man seen for follow-up neuro-ophthalmic evaluation because of the history of vision loss and disc edema. There has been an interval worsening in the patient's overall vision, visual koch and color vision since he was last evaluated. Previously, there was disc edema on the right that has now settled out with atrophy at both optic nerve. The patient's pressures have been in the high normal range and he does have relatively narrow angles. While the disc edema previously would not be consistent with glaucoma, I am concerned that the patient may have the potential for further worsening related to ocular hypertension and as such have asked for an evaluation byone of my colleagues in glaucoma. 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 I have encouraged him to continue to pursue strategies to allow him to tolerate CPAP. In addition at high want to repeat to the patient's previous neuroimaging, specifically looking at the orbits and will obtain additional serologic studies. We will be in contact after these are obtained and I have asked that the patient come back for formal repeat evaluation no later than six weeks, certainly sooner if things are progressively worse. I spent a total of 40 minutes on the date of this encounter meeting with the patient and reviewing documentation/coordinating care as described in the above note. Please do not hesitate to contact me with any further questions or concerns. Sincerely, Blayne Medina MD Diplomate, the [place] [employer] glass scullion Department of Ophthalmology documented in this encounter Plan of Treatment Upcoming Encounters Date Type Department Care Team (Late st Contact Info) Description 05/01/2024 10:30 EDT Office Visit [address] [phone] Blayne Medina MD [address] [place] [phone] 08/17/2024 8:15 EST [facility] [address] [address] David Gates MD [address] [place] [phone] Pending Results Name Type Priority Associated Diagnoses Date /Time LAMAR VF 24-2 FAST - OU - BOTH EYES Ophthalmology Routine Vision loss, bilateral Optic atrophy 11/17/2023 10:15 EST OCT, OPTIC NERVE - OU - BOTH EYES Ophthalmology Routine Vision loss, bilateral Optic atrophy 11/17/2023 10:15 EST documented as of this encounter Procedures Procedure Name Priority Date/Time Associated Diagnosis Comments LAMAR VF 24-2 FAST - OU - BOTH EYES Routine 11/17/2023 10:15 EST Vision loss, bilateral Optic atrophy OCT, OPTIC NERVE - OU - BOTH EYES Routine 11/17/2023 10:15 EST Vision loss, bilateral Optic atrophy documented in this encounter Results * BUN (12/27/2023 14:58 EDT) Pathologist [facility] BUN 14 10 - 26 mg/dL 12/27/2023 16:18 EDT [facility] Blood VENOUS BLOOD / Unknown Venipuncture / Unknown 12/27/2023 14:58 EDT 12/27/2023 15:25 EDT Blayne Medina MD CHEMISTRY & BLOO D GAS ORDERABLES Performing Organization Address City/[facility] Co de Phone Number [facility] [address] [place] [address] * CREATININE (12/27/2023 14:58 EDT) [facility] Creatinine 0.83 0.66 - 1.25 mg/dL 12/27/2023 16:18 EDT [facility] eGFR 105 >60 mL/min/1.73 m2 12/27/2023 16:18 EDT [facility] Blood VENOUS BLOOD / Unknown Venipuncture / Unknown 12/27/2023 14:58 EDT 12/27/2023 15:25 EDT Blayne Medina MD CHEMISTRY & BLOO D GAS ORDERABLES Performing Organization Address City/[facility] Co de Phone Number [facility] [address] [place], [place] [phone] * (ABNORMAL) SED RATE (12/27/2023 14:58 EDT) [facility] Sed Rate 28(H) 0 - 20 mm/hr 12/27/2023 16:15 EDT [facility] Blood VENOUS BLOOD / Unknown Venipuncture / Unknown 12/27/2023 14:58 EDT 12/27/2023 15:25 EDT Blayne Medina MD HEMATOLOGY & PF4 ORDERABLES Performing Organization Address [facility]/ZIP Co de Phone Number [facility] [address] [place] [address] * C REACTIVE PROTEIN (12/27/2023 14:58 EDT) Pathologist [facility] C-Reactive Protein <5.0 <10.0 mg/L 12/27/2023 16:18 EDT [facility] Blood VENOUS BLOOD / Unknown Venipuncture / Unknown 12/27/2023 14:58 EDT 12/27/2023 15:25 EDT Blayne Medina MD CHEMISTRY & BLOO D GAS ORDERABLES Performing Organization Address City/[facility] Co de Phone Number [facility] [address] [place] [address] * COMPLETE BLOOD COUNT (12/27/2023 14:58 EDT) Pathologist [facility] WBC 9.89 4.00 - 10.40 K/cmm 12/27/2023 15:42 EDT [facility] RBC 5.78 4.36 - 5.78 M/cmm 12/27/2023 15:42 EDT [facility] Hemoglobin 16.3 13.8 - 17.3 g/dL 12/27/2023 15:42 EDT [facility] HCT 47.9 39.5 - 50.2 % 12/27/2023 15:42 EDT [facility] MCV 83 81 - 95 fL 12/27/2023 15:42 EDT [facility] MCH 28.2 27.6 - 33.0 pg 12/27/2023 15:42 EDT [facility] MCHC 34.0 32.8 - 36.4 g/dL 12/27/2023 15:42 EDT [facility] RDW-CV 12.8 <14.2 % 12/27/2023 15:42 EDT [facility] RDW-SD 38.5 <46.0 fl 12/27/2023 15:42 EDT [facility] PLT 227 141 - 377 K/cmm 12/27/2023 15:42 EDT [facility] MPV 11.9 9.5 - 12.7 fL 12/27/2023 15:42 EDT [facility] Blood VENOUS BLOOD / Unknown Venipuncture / Unknown 12/27/2023 14:58 EDT 12/27/2023 15:25 EDT Blayne Medina MD HEMATOLOGY & PF4 ORDERABLES Performing Organization Address City/State/[facility] Co de Phone Number [facility] [address] [place] [address] * MR HEAD W WO CONTRAST (12/24/2023 11:47 EDT) Anatomical Region Laterality Modality Head Magnetic Resonan ce 12/24/2023 15:4 4 EDT Impressions 12/24/2023 15:44 EDT MRI HEAD: Probable sequela of mild chronic microvascular ischemic changes. Otherwise, normal enhanced MRI of the brain. MRI ORBITS: Nonspecific chronic bilateral optic neuritis. [id number] Narrative 12/24/2023 15:44 EDT EXAM: MRI HEAD [...] MRI ORBITS: Nonspecific chronic bilateral optic neuritis. [id number] Blayne Medina MD IMG MRI ORDERABL ES * MR ORBIT W WO CONTRAST (12/24/2023 11:47 EDT) Anatomical Region Laterality Modality Head Magnetic Resonan ce 12/24/2023 15:4 4 EDT Impressions 12/24/2023 15:44 EDT MRI HEAD: Probable sequela of mild chronic microvascular ischemic changes. Otherwise, normal enhanced MRI of the brain. MRI ORBITS: Nonspecific chronic bilateral optic neuritis. [id number] Narrative 12/24/2023 15:44 EDT EXAM: MRI HEAD [...] MRI ORBITS: Nonspecific chronic bilateral optic neuritis. [id number] Blayne Medina MD IMG MRI ORDERABL ES documented in this encounter Visit Diagnoses Diagnosis Vision loss, bilateral- Primary Unqualified visual loss, both eyes Optic atrophy Optic atrophy, unspecified Vision loss, bilateral Unqualified visual loss, both eyes Optic atrophy Optic atrophy, unspecified documented in this encounter Historical Medications * This list may reflect changes made after this encounter. Medication Sig Dispensed Refills Start Date End Date timolol (TIMOPTIC) 0.5 % ophthalmic solution Place 1 Drop into both eyes 2 times daily. semaglutide (OZEMPIC) 2 mg/dose (8 mg/3 mL) pen injector Inject 2 mg into the skin once a week. added in this encounter Eye Exam Visual Acuity (Snellen - Linear) Right eye Left eye Dist cc 20/80 +2 20/150 -1 Dist ph cc NI 20/150 -2 +2 Near cc J7 J16 Correction: Glasses Tonometry (Applanation, 11:33) Right eye Left eye Pressure 22 22 Pupils Dark Light Shape React APD Right eye 1.25 1 Round Brisk None Left eye 1.25 1 Round Brisk + Visual Koch (Counting fingers) Right eye Left eye Restrictions Partial outer superi or temporal, inferior temporal, superior nasal, inferior nasal deficiencies Total superior temporal, inferior temporal, superior nasal deficiencies; Partial outer inferior nasal deficiency Extraocular Movement Right eye Left eye Full, Ortho Full, Ortho Neuro/Psych Oriented x3: Yes Mood/Affect: Normal Amsler Right eye Left eye Normal horizontally wav y lines Color Right eye Left eye Ishihara 02/02 5 Stereo Fly: - Animals: 3/3 Circles: 1/9 Wearing Rx Sphere Cylinder [place] Add Right eye +6.25 +0.25 180 +2.25 Left eye +5.50 +1.25 010 +2.25 Type: Bifocal Care Teams Clinic Office Coordinator Relationship Specialty Start Date End Date Kim Caldwell NP [address] [place] [id number] PCP - General Family Medicine - Primary Care 05/16/23 documented as of this encounter
--- OUTSIDE RECORDS SUMMARY | 2024-04-23 01:28 | XMS_ITS | Encounter Summary ---
Author Organization [facility] Address [address] [place] [address] Care Team Providers Care Bilingual Branch Manager Name Role Phone Dinorah Caldwellyce Deysi DISTILLER Primary Care Provider [phone] Encounter Details Date Type Department Care Team (Late st Contact Info) Description 11/17/2023 Orders Only [facility] Radiology [address] [phone] Evan Brar MD [address] [place] [phone] Social History Tobacco Use Types Packs/Day Years [...] Description 05/01/2024 10:30 EDT Office Visit [facility] Ophthalmology [address] [phone] Blayne Medina MD [address] [place] [address], [address] [place] [phone] 08/17/2024 8:15 EST Office Visit [facility] Ophthalmology - Main [place] [address] [place], [place] [address] David Gates MD 111 [facility], [address] [place] [phone] documented as of this encounter Visit Diagnoses Not on filedocumented in this encounter Care Teams Bilingual Branch Manager Relationship Specialty Start Date End Date Kim Caldwell NP [address] [place] [address] PCP - General Family Medicine - Primary Care 05/16/23 documented as of this encounter
--- OUTSIDE RECORDS SUMMARY | 2024-04-23 01:28 | XMS_ITS | Encounter Summary ---
Author Organization [facility] Address [address] [place] [address] Care Team Providers Care Sales Exec Name Role Phone Kim Caldwell Deysi LOAN SPECIALIST Primary Care Provider [phone] Encounter Details Date Type Department Care Team (Late Contact Info) Description 08/24/2023 Lab Requisition [facility] Pathology & Laboratory Medicine [address] [phone] Apple Redmond MD [address] [place] [phone] Gastro-esophageal reflux disease without esophagitis; Reyes's esophagus without dysplasia; Gastritis, unspecified, without bleeding Social History Tobacco Use Types Packs/Day Years [...] Info) Description 05/01/2024 10:30 EDT Office Visit [facility] Ophthalmology - [address] [address] Blayne Medina MD [address] [place] [address], [address] [place] [address] 08/17/2024 8:15 EST Office Visit [facility] Ophthalmology - [facility] [address] [place] [address] David Gates MD 111 [facility] [address] [place] [address] documented as of this encounter Procedures Procedure Name Priority Date/Time Associated Diagnosis Comments SURGICAL PATHOLOGY Today 08/24/2023 10 :45 EST Gastro-esophageal reflux disease without esophagitis Reyes's esophagus without dysplasia Gastritis, unspecified, without bleeding documented in this encounter Results * SURGICAL PATHOLOGY (08/24/2023 10:45 EST) Note to Patient The following pathology results have been interpreted by your pathologist and may be available to you before your health provider has had the opportunity to review them. Please allow time for your provider to receive these results and explore management options, if applicable. 08/30/2023 11:48 EST [facility] Final Diagnosis A. STOMACH, ANTRUM, POLYP, BIOPSY: - Gastric antral type mucosa with reactive (chemical) gastropathy with focal acute inflammation. - Helicobacter pylori is negative on immunohistochemistr y. B. STOMACH, ANTRUM, BIOPSY: - Gastric mucosa with reactive (chemical) gastropathy. C. ESOPHAGUS, 36 CM, BIOPSY: - Reactive squamocolumnar junctional mucosa with intestinal metaplasia. - Negative for dysplasia. D. ESOPHAGUS, 34 CM, BIOPSY: - Reactive squamocolumnar junctional mucosa with intestinal metaplasia. - Negative for dysplasia. E. ESOPHAGUS, 32 CM, BIOPSY: - Reactive squamocolumnar junctional mucosa with intestinal metaplasia. - Negative for dysplasia. 08/30/2023 11:48 EST [facility] Diagnosis Comment Roof Mechanic slides of this case were reviewed at the intradepartmental consultation conference. Immunoperoxidase stains were performed on this case to further characterize the lesion. ANTIBODY(CLONE)(BLO CK):RESULT H pylori (Rabbit Monoclonal (SP48), Mil[place]) (B1): Negative NOTE: One or more of the reagents used in immunoperoxidase testing in this case may not have been cleared or approved by the U.S. Food and Drug Administration (FDA). The FDA has determined that such clearance or approval is not necessary. These tests are used for clinical purposes. They should not be regarded as investigational or for research. These reagents' performance characteristics have been determined by [facility] and/or by the referring laboratory. The positive and negative controls worked appropriately. If immunoperoxidase staining has been performed on alcohol fixed cytology specimens, which has not been fully validated, the assays should be interpreted with caution and correlated with clinical data. This laboratory is certified under the Clinical Laboratory Improvement Amendments of 1988 (CLIA-88) as qualified to perform high complexity clinical laboratory testing. 08/30/2023 11:48 [facility] Attestation By the signature below, the attending physician certifies that they have 1) personally conducted a gross and/or microscopic examination of the described specimen(s), and/or personally interpreted the results of laboratory testing of the described specimen(s), and 2) personally rendered or confirmed the above diagnosis. 08/30/2023 11:48 [facility] at 1148 Clinical History Reyes's esophagus, dysphagia, reflux; gastritis, erosive esophagitis, Reyes's esophagus 08/30/2023 11:48 [facility] Gross Description A. Received in formalin labelled with proper patient identification (initials R, G) and antrum polyp is a gr-pink tissue measuring 0.8 x 0.2 x 0.2 cm. Submitted intact in A1. B. Received in formalin labelled with proper patient identification (initials R, G) and antrum bx's are 4 gr-pink tissues ranging in size from 0.3 x 0.2 x 0.1 cm up to 0.4 x 0.3 x 0.1 cm. Submitted intact in B1. C. Received in formalin labelled with proper patient identification (initials R, G) and esophagus bx at 36 cm are 2 pink-white tissues each measuring 0.3 x 0.1 x 0.1 cm. Submitted intact in C1. D. Received in formalin labelled with proper patient identification (initials R, G) and esophagus bx at 34 cm are 2 gr-pink tissue measuring 0.3 x 0.2 x 0.1 cm and 0.4 x 0.3 x 0.2 cm. Submitted intact in D1. E. Received in formalin labelled with proper patient identification (initials R, G) and esophagus bx at 32 cm are 2 gr-white tissues measuring 0.2 x 0.2 x 0.1 cm and 0.5 x 0.2 x 0.1 cm. Submitted intact in E1. SANDEEP HIRSCH(ASCP) 08/24/2023 20:07 08/30/2023 11:48 EST [facility] Performing Lab [facility] 08/30/2023 11:48 EST [facility] Scanned Images 08/30/2023 11:48 EST [facility] Tissue ESOPHAGEAL STRUCTURE / Unknown 08/24/2023 10:45 EST 08/24/2023 17:01 EST Tissue specimen (specimen) STOMACH STRUCTURE / Unknown 08/24/2023 10:45 EST 08/24/2023 17:01 EST Tissue specimen (specimen) ESOPHAGEAL STRUCTURE / Unknown 08/24/2023 10:45 EST 08/24/2023 17:01 EST Tissue specimen (specimen) ESOPHAGEAL STRUCTURE / Unknown 08/24/2023 10:45 EST 08/24/2023 17:01 EST Tissue specimen (specimen) ESOPHAGEAL STRUCTURE / Unknown 08/24/2023 10:45 EST 08/24/2023 17:01 EST Apple Redmond MD PATHOLOGY ORDERA BLES [facility] [address] [place] [address] documented in this encounter Visit Diagnoses Diagnosis Gastro-esophageal reflux disease without esophagitis Esophageal reflux Reyes's esophagus without dysplasia Reyes's esophagus Gastritis, unspecified, without bleeding documented in this encounter Care Teams Sales Exec Relationship Specialty Start Date End Date Kim Caldwell NP [address] [place] [id number] PCP - General Family Medicine - Primary Care 05/16/23 documented as of this encounter
--- OUTSIDE RECORDS SUMMARY | 2024-04-23 01:28 | XMS_ITS | Encounter Summary ---
Author Organization [facility] Address [address] [place] [address] Care Team Providers Care Pack Mule Worker Name Role Phone Chao Wise [facility] Primary Care Provider [phone] Reason for Visit * Reason Comments Neurologic Problem * Consult, Test and Treat (Routine) - Authorization Not Required Specialty Diagnoses / Procedures Referred By Nevaeh lange Referred To Contact Ophthalmology Diagnoses Optic nerve edema Gilma Neely [address] [place] [address] [place] [address] Blayne Medina MD [address] [place] [id number] Referral ID Status Reason Start Date Expiration Date Visits Requested Visits Authorized [id number] Authorization Not Required 1 1 Encounter Details Date Type Department Care Team ([facility] Contact Info) Description 03/16/2023 12:30 EDT Office Visit [facility] Ophthalmology - [address] [id number] Blayne Medina MD [address] [place] [phone] Social History Tobacco Use Types Packs/Day Years Used Date Smoking Tobacco: Former Cigarettes Q uit: 2008 Smokeless Tobacco: Never Tobacco Cessation:Counseling Given: Not Answered Alcohol Use Standard Drinks/Week Comments Not Currently [...] Progress Notes * Blayne Medina MD - 03/16/2023 1230 EDT [facility] NEURO-OPHTHALMOLOGY CONSULTATION - 03/16/2023 Patient: Roderick Gupta : [address] Neely, Thank you for requesting neuro-ophthalmological consultation on Mr. Gupta because of the history of swollen optic nerves. This is a 52-year-old man who follows with you for comprehensive eye care. For follow-up after having presented with light sensitivity and darkening of his vision. At that time he was identified to have bilateral disc edema moderate on the right and severe on the left. There was thought that this might be sequential or simultaneous nonarteritic anterior ischemic optic neuropathy. Evaluations for Lyme and giant cell arteritis were performed. The patient had an MRI and MRA as well as a lumbar puncture all reported to be normal. He is referred for neuro-ophthalmic evaluation of the same. The patient does relate a history of systemic hypertension poorly controlled diabetes and previous history of heavy alcohol use having stopped at the end of 2021. He has mild infrequent headaches. His blood sugars have been running high. He denies eye pain. Since his evaluation with you he reports that his vision has been stable if somewhat improved. He continues to notice that the vision in the left eye is darker than in the right. He denies headaches and reports that has diabetes has come under much better control although remains high with a current A1c of 8.3. The ocular history significant for amblyopia in the right eye, longstanding hyperopia, no previous diagnosis of diabetic retinopathy, ocular hypertension, and cataracts. The surgical history includes poorly controlled diabetes, previous alcohol use disorder, systemic hypertension, dyslipidemia, hearing loss on the right, obesity, and gastroesophageal reflux. His surgical history includes a shoulder arthroplasty with capsular release. Medications were reviewed as documented in the EHR to include; atorvastatin, chlorthalidone, empagliflozin, insulin aspart, insulin glargine, lisinopril, and omeprazole. The patient is allergic to nexium [esomeprazole magnesium]. The social history finds patient be a former smoker. He reports that he quit alcohol earlier in theyear with extensive past use typically consisting of 20-30 beers per day and prior to that history of regular hard alcohol use. The family history is noncontributory. The neuro-ophthalmic examination found the patient to be communicative and cooperative for testing.Visual acuities with correction were 20/80+ in the right eye with minimal refractive refinement to 20/70; 20/100 in the left eye with minimal refractive refinement to 20/80. El 5- in each eye tested individually and near card. Color vision (AO PIP) showed no dyschromatopsia in the right eye, 8/14 correct plates with the left eye. Amsler grid testing showed no metamorphopsia. The pupils were equal in size and showed a left relative afferent pupillary defect. 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 The lids showed 1 to 2 mm ptosis bilaterally with no lid lag or twitch. Examination of extraocular motility showed a small left hyper in primary gaze. Ductionswere full. Pursuit and saccade function was normal. There was no nystagmus. Applanation tonometry at 1353 hrs. was 23 mmHg in the right eye, 23 mmHg in the left eye. Slit-lamp examination revealed blepharitis, early break of the tear film and 2+ nuclear sclerotic cataracts in each eye. Automated (Lamar) visual koch were performed with moderate degree of technical difficulty. The right eye showed a pattern of constriction greatest nasally with a mean deviation score -24.93 dB and foveal threshold 34 dB. The left eye shows a general pattern of constriction with at least some suggestion of an altitudinal pattern inferiorly, mean deviation score -23.21 dB of foveal threshold 29 dB. Dilatedstereoscopic (indirect) funduscopy revealed a swollen nerve on [...] of the disc on the right measuring 102 ??m with the neuroretinal rim also elevated above the upper limit of normal. On the left there was a polar distribution of thinning of the disc. Disc measurements were 102 ??m on the right and 70 ??m on the left. Average ganglion layer thickness at the maculae in each eye was thinned, leftmore so than right with measurements of 72 ??m on the right and 60 ??m on the left. FORMULATION: This is a 52-year-old man seen for neuro-ophthalmic evaluation because of the history of vision loss and disc edema. The patient apparently had an MRI which was reported as normal. I have asked that that be pushed over for our review. 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 I explained that there is no known treatment; some recommend steroid but the one study in the literature in favor of this has not been reproduced and it is generally felt to be flawed. There are no proven modifiable risk factor, some advocated for changing anti- hypertensive medication dosing to the morning with the thought that this reduces hypotensive spells overnight. In this same line of thinking we generally recommend evaluation and treatment of obstructive sleep apnea (SHITAL) as this theoretically predisposes to similar hypotensive spells. While there is no clear evidence to support an association between SHITAL and NAION, the other health risks of untreated SHITAL warrant evaluation when this condition is suspected. Given the atypical nature of this presentation I have recommended and will obtain a number of serologic studies to investigate alternate, treatable causes. I will plan on seeing the patient in eight weeks to ensure that this is evolving as expected, and he knows to call in the interval with changes. I spent a total of 65 minutes on the date of this encounter meeting with the patient and reviewing documentation/coordinating care as described in the above note. Thank you for allowing me to share in the care of your patient. Please do not hesitate to contact me with any further questions or concerns. Sincerely, Blayne Medina MD Diplomate, the [place] [employer] suppression crew leader Department of Ophthalmology documented in this encounter Plan of Treatment Upcoming Encounters Date Type Department Care Team (Late st Contact Info) Description 05/01/2024 10:30 EDT Office Visit [facility] Ophthalmology - [address] [phone] Blayne Medina MD [address] [place] [phone] 08/17/2024 8:15 EST Office Visit [facility] Ophthalmology - [address] [phone] David Gates MD [address] [place] [phone] Pending Results Name Type Priority Associated Diagnoses Date /Time LAMAR VF 24-2 FAST - OU - BOTH EYES Ophthalmology Routine Optic disc edema Vision loss 03/16/2023 12:30 EDT OCT, OPTIC NERVE - OU - BOTH EYES Ophthalmology Routine Optic disc edema Vision loss 03/16/2023 12:30 EDT documented as of this encounter Procedures Procedure Name Priority Date/Time Associated Diagnosis Comments LAMAR VF 24-2 FAST - OU - BOTH EYES Routine 03/16/2023 12:30 EDT Optic disc edema Vision loss OCT, OPTIC NERVE - OU - BOTH EYES Routine 03/16/2023 12:30 EDT Optic disc edema Vision loss documented in this encounter Results * COMPLETE BLOOD COUNT (03/16/2023 15:02 EDT) WBC 9.80 4.00 - 10.40 K/cmm 03/16/2023 15:30 EDT [facility] RBC 5.59 4.36 - 5.78 M/cmm 03/16/2023 15:30 EDT [facility] Hemoglobin 15.5 13.8 - 17.3 g/dL 03/16/2023 15:30 EDT [facility] HCT 46.2 39.5 - 50.2 % 03/16/2023 15:30 EDT [facility] MCV 83 81 - 95 fL 03/16/2023 15:30 EDT [facility] MCH 27.7 27.6 - 33.0 pg 03/16/2023 15:30 EDT [facility] MCHC 33.5 32.8 - 36.4 g/dL 03/16/2023 15:30 EDT [facility] RDW-CV 13.4 <14.2 % 03/16/2023 15:30 EDT [facility] RDW-SD 40.4 <46.0 fl 03/16/2023 15:30 EDT [facility] PLT 177 141 - 377 K/cmm 03/16/2023 15:30 EDT [facility] MPV 12.1 9.5 - 12.7 fL 03/16/2023 15:30 EDT [facility] Blood VENOUS BLOOD / Unknown Venipuncture / Unknown 03/16/2023 15:02 EDT 03/16/2023 15:13 EDT Blayne Medina MD HEMATOLOGY & PF4 ORDERABLES [facility] [address] [place] [address] * METHYLMALONIC ACID (03/16/2023 15:02 EDT) Methylmalonic Acid, QN, S 0.23 <=0.40 nmol/mL 03/19/2023 9:35 EDT [facility] Comment: ADDITIONAL INFORMATION This test was developed and its performance characteristics determined by [facility] in a manner consistent with CLIA requirements. This test has not been cleared or approved by the U.S. Food and Drug Administration. Test Performed by: [facility] - [address] [address] Balance Staff Staker: Ritesh Bo M.D. Ph.D.; CLIA# [id number] Blood VENOUS BLOOD / Unknown Venipuncture / Unknown 03/16/2023 15:02 EDT 03/16/2023 15:13 EDT Blayne Medina MD CHEMISTRY & BLOO D GAS ORDERABLES [facility] [address] [place] [address] * VITAMIN B12 (03/16/2023 15:02 EDT) Pathologist [facility] Vitamin B12 694 211 - 911 pg/mL 03/16/2023 16:28 EDT [facility] Blood VENOUS BLOOD / Unknown Venipuncture / Unknown 03/16/2023 15:02 EDT 03/16/2023 15:13 EDT Blayne Medina MD CHEMISTRY & BLOO D GAS ORDERABLES [facility] [address] [place] [address] * BOWL ATTENDANT DEMYELINATING DISEASE EVALUATION, S (03/16/2023 15:02 EDT) Pathologist [facility] BOWL ATTENDANT Demyelinating Disease Interp, S SEE NOTE 03/21/2023 5:41 EDT [facility] Comment: No informative autoantibodies were detected in this evaluation. A negative result does not preclude a diagnosis of an inflammatory BOWL ATTENDANT demyelinating disorder. NMO/AQP4 FACS, S Negative Negative 03/21/20 5:41 EDT [facility] Comment: ADDITIONAL INFORMATION This test was developed and its performance characteristics determined by [facility] in a manner consistent with CLIA requirements. This test has not been cleared or approved by the U.S. Food and Drug Administration. MOG FACS, S Negative Negative 03/21/2023 5:41 EDT [facility] Comment: ADDITIONAL INFORMATION This test was developed and its performance characteristics determined by [facility] in a manner consistent with CLIA requirements. This test has not been cleared or approved by the U.S. Food and Drug Administration. Test Performed by: [facility] [address] [place] [address] Balance Staff Staker: Ritesh Bo M.D. Ph.D.; CLIA# [id number] Blood VENOUS BLOOD / Unknown Venipuncture / Unknown 03/16/2023 15:02 EDT 03/16/2023 15:13 EDT Blayne Medina MD IMMUNOLOGY AND S EROLOGY ORDERABLES [address] [address] documented in this encounter Visit Diagnoses Diagnosis Optic disc edema- Primary Papilloedema, unspecified Vision loss Unspecified visual loss documented in this encounter Historical Medications * This list may reflect changes made after this encounter. Medication Sig Dispensed Refills Start Date End Date insulin aspart (NOVOLOG FLEXPEN U-100 INSULIN SUBQ) Inject into the skin 3 (three) times a day with meals. insulin glargine,hum.rec.anlog (LANTUS SUBQ) Inject 80 Units into the skin daily. chlorthalidone (HYGROTON) 25 mg tablet Take 1 Tablet by mouth daily. empagliflozin (JARDIANCE) 25 mg tablet Take 1 Tablet by mouth daily. omeprazole (PRILOSEC) 20 mg capsule Take 1 Capsule by mouth daily. atorvastatin (LIPITOR) 20 mg tablet Take 1 Tablet by mouth daily. lisinopriL (PRINIVIL) 30 mg tablet Take 40 mg by mouth daily. added in this encounter Eye Exam Visual Acuity (Snellen - Linear) Right eye Left eye Dist cc 20/80 +1 20/100 -+ Near cc J16 J7 Tonometry (Applanation, 13:53) Right eye Left eye Pressure 23 22 Pupils APD Right eye None Left eye None Photophobic Visual Koch Right eye Left eye Restrictions Partial outer superi or temporal, inferior temporal, superior nasal, inferior nasal deficiencies Partial outer inferior temporal, inferior nasal deficiencies Extraocular Movement Right eye Left eye Full Full 2 prism diopter left hyperdeviation at distance in primary gaze with current distance correction. Neuro/Psych Oriented x3: Yes Mood/Affect: Normal Amsler Right eye Left eye Normal Missing lines Color Right eye Left eye AO PIP 9+/14 8+/14 Stereo Fly: - Slit Lamp Exam Right eye Left eye Lids/Lashes Trace Blepharitis Trace Blephari tis Conjunctiva/Sclera White and quiet White and shayla et Cornea Trace stain Trace stain Anterior Chamber Moderate and Quiet Moderate and Quiet Iris No TI or Rubeosis No TI or Rubeo sis Wearing Rx Sphere Cylinder Nicholls Add Right eye +6.25 +0.25 180 +2.25 Left eye +5.50 +1.25 010 +2.25 Age: 10m years Type: Bifocal Manifest Refraction (Retinoscopy) Sphere Cylinder Nicholls Dist VA Add Near VA Right eye +6.50 +2.50 020 20/70+1 +2.50 J5- Left eye +5.75 +2.25 180 20/80- +2.50 J5- Unrefined Care Teams Pack Mule Worker Relationship Specialty Start Date End Date Chao Wise RPA [address] [place] [id number] PCP - General Family Medicine - Primary Care 03/11/23 05/15/23 documented as of this encounter
--- OUTSIDE RECORDS SUMMARY | 2024-04-23 01:28 | XMS_ITS | Encounter Summary ---
Author Organization [facility] Address [address] [place] [address] Care Team Providers Care Watch And Clock Repairer Name Role Phone Shana Ceballos [facility] Primary Care Provider [phone] Chao Wise RPA Primary Care Provider [phone] Kim Caldwell [facility] Primary Care Provider [phone] Encounter Details Date Type Department Care Team (Late Contact Info) Description 05/09/2020 Lab Requisition [facility] Pathology & Laboratory Medicine - [address] [id number] Outr Resulting Lab, Provider Social History Tobacco Use Types Packs/Day Years Used Date Smoking Tobacco: Never Assessed Sex and Gender Information Value Date Recorded Sex Assigned at Not on file Gender Identity Male 03/11/2023 9:04 EDT Sexual Orientation Not on file documented as of this encounter Plan of Treatment Upcoming Encounters Date Type Department Care Team (Late Contact Info) Description 05/01/2024 10:30 EDT Office Visit [facility] Ophthalmology [address] [id number] Blayne Medina MD [address] [place] [address], [address] [place] [phone] 08/17/2024 8:15 EST Office Visit [facility] Ophthalmology [address] [phone] David Gates MD [address] [facility], [address] [place] [phone] documented as of this encounter Procedures Procedure Name Priority Date/Time Associated Diagnosis Comments DO NOT ORDER STANDALONE - BROAD COVID TEST Today 05/09/2020 9:15 EDT COVID-19 TESTING Routine 05/09/2020 9:15 EDT documented in this encounter Results * DO NOT ORDER STANDALONE - BROAD COVID TEST (05/09/2020 9:15 EDT) COVID-19 rt-PCR Result NEGATIVE Negative 05/10/2020 16:18 EDT [facility] Comment: 2019-novel Coronavirus (2019-nCoV) not detected [...] in accordance with CLIA regulations, [employer] [place] [employer] (CAP) guidelines (Dec 13, 2019), and FDA guidance (Nov 24, 2019). This test is only for use under the Food and Drug Administration's Emergency Use Authorization. Swab ENTIRE NASOPHARYNX / Unknown 05/09/2020 9:15 EDT 05/09/2020 16:05 EDT Provider Outr Resulting Lab MICROBIOLOGY - GENERAL ORDERABLES [facility] [place], [place] * COVID-19 TESTING (05/09/2020 9:15 EDT) COVID-19 rt-PCR Result NEGATIVE Negative 05/10/2020 17:48 EDT [facility] Comment: 2019-novel Coronavirus (2019-nCoV) [...] in accordance with CLIA regulations, [employer] [place] [employer] (CAP) guidelines (Dec 13, 2019), and FDA guidance (Nov 24, 2019). This test is only for use under the Food and Drug Administration's Emergency Use Authorization. Performing Lab [facility] [employer] [facility] 05/10/2020 17:[address] [facility] Swab 05/09/2020 9:15 EDT 05/09/2020 16:05 EDT Provider Outr Resulting Lab MICROBIOLOGY - GENERAL ORDERABLES [facility] [address] [place] [address] [facility] [place], [place] documented in this encounter Visit Diagnoses Not on filedocumented in this encounter Care Teams Watch And Clock Repairer Relationship Specialty Start Date End Date Shana Ceballos NP [address] [place], [place] [id number] PCP - General 09/26/19 03/10/23 Chao Wise RPA [address] [address] PCP - General Family Medicine - Primary Care 03/11/23 05/15/23 Kim Caldwell NP [address], [place] [id number] PCP - General Family Medicine - Primary Care 05/16/23 documented as of this encounter
--- NOTE | 2024-04-23 07:00 | DI.MRI_ITS ---
Exam(s) MR LUMBAR SPINE WO EXAM: MR LUMBAR SPINE WO CLINICAL HISTORY: low back pain,right radiculopathy,BLE weakness almost 1 yr,m54.50,m54.16,. TECHNIQUE: Multiplanar multisequence MRI of the Lumbar spine was performed. COMPARISON: CR,XR XR PORTABLE CHEST AP from 12/16/2022 FINDINGS: Bones: The last intervertebral disc space is designated the L5/S1 level for the numbering purpose of this ex amination. The vertebral body heights are well maintained. Alignment: Unremarkable. The marrow signal characteristics are unremarkable. Cord: The conus tip ends at the T12 level. It is of normal size and signal intensity. T12-L1: Mild disc bulging. Small endplate osteophytes. No focal disc herniation is present. No paige tral spinal canal stenosis.No neural foraminal stenosis. L1-2:Mild disc bulging. Small endplate osteophytes. No focal disc herniation is present. No centra l spinal canal stenosis.No neural foraminal stenosis. L2-3: No focal disc herniation is present. No central spinal canal stenosis.No neural foraminal diana nosis. L3-4: No focal disc herniation is present. No central spinal canal stenosis.No neural foraminal diana nosis. L4-5: No focal disc herniation is present. No central spinal canal stenosis.No neural foraminal sten osis. L5-S1: No focal disc herniation is present. No central spinal canal stenosis.No neural foraminal st enosis. The visualized SI joints and sacrum are unremarkable. Soft tissues: The paraspinal soft tissues are unremarkable. IMPRESSION: Mild disc bulging at T12-L1 and L1-2. No evidence of focal disc herniation. No evidence of signific ant spinal stenosis or neuroforaminal narrowing. DATA REPOSITORY:
== END ==
PROVIDERS: PCP Nurse Practitioner; Visit Provider Nurse Practitioner
DX: M54.59 Other low back pain (principal); M54.16 Radiculopathy, lumbar region; M62.81 Muscle weakness (generalized); M51.15 Intervertebral disc disorders with radiculopathy, thoracolumbar region; R29.898 Other symptoms and signs involving the musculoskeletal system
CPT/HCPCS: 72148

== ENCOUNTER 2024-12-06 01:17 | Outpatient (CLI) | payer MEDICAID, SELFPAY ==
--- NOTE | 2024-12-06 07:30 | DI.US_ITS ---
Exam(s) US SOFT TISSUE HEAD OR NECK EXAM: US SOFT TISSUE HEAD OR NECK CLINICAL HISTORY: NT swelling/mass behind left ear,r60.9. TECHNIQUE: Ultrasound was performed using standard protocol. COMPARISON: No exams were available for comparison FINDINGS: Sonographic assessment utilizing grayscale and color Doppler imaging was performed and targeted to th e area of clinical concern. Sonographic evaluation posterior to the left ear was performed. There is a sonographically benign-ap pearing 1.0 x 0.3 x 0.7 cm lymph node present. This appears to correspond to the area of concern. IMPRESSION: 1. Sonographically benign-appearing lymph node is seen posterior to the ear. 2. No suspicious cystic or solid masses are seen. DATA REPOSITORY:
== END 2024-12-06 01:37 ==
LOC: DI 01:17
PROVIDERS: PCP Nurse Practitioner; Visit Provider Nurse Practitioner
DX: D36.0 Benign neoplasm of lymph nodes (principal)
CPT/HCPCS: 76536

== ENCOUNTER 2024-12-25 15:47 | Outpatient (CLI) | payer MEDICAID, SELFPAY ==
[2024-12-25 08:24] LABS: ALT 17 U/L (16-63); AST 15 U/L (15-37); Albumin 3.4 g/dL (3.4-5.0); Alkaline Phosphatase 87 U/L (46-116); BUN 12 mg/dL (7-18); Bilirubin, Total 1.2 mg/dL (0.2-1.0); CREATININE 0.8 mg/dL (0.70-1.30); Calcium 9.5 mg/dL (8.5-10.1); Calculated LDL 96 mg/dL (<100); Chloride 108 mmol/L (98-107); Cholesterol 167 mg/dL (<200); Estimated GFR 105.82 (mL/min/1.73m2); Glucose 99 mg/dL (74-106); HDL Cholesterol 62 mg/dL (>or=40); Potassium 4.3 mmol/L (3.5-5.1); Sodium 143 mmol/L (136-145); Triglyceride 49 mg/dL (<150)
== END 2024-12-25 15:48 | disposition home or self-care (01) ==
LOC: LBO 15:48
PROVIDERS: PCP Nurse Practitioner; Visit Provider Nurse Practitioner
DX: I10 Essential (primary) hypertension (principal); E78.5 Hyperlipidemia, unspecified; E11.9 Type 2 diabetes mellitus without complications
CPT/HCPCS: 36415; 80053; 80061

== ENCOUNTER 2025-08-01 01:30 | Outpatient (CLI) | payer MEDICAID, SELFPAY ==
[2025-08-01 07:54] LABS: Anion Gap 5.7 mmol/L (3-11); BUN 23 mg/dL (7-18); CO2 33.3 mmol/L (21.0-32.0); Calcium 9.2 mg/dL (8.5-10.1); Chloride 101 mmol/L (98-107); Glucose 128 mg/dL (74-106); Potassium 3.5 mmol/L (3.5-5.1); Sodium 140 mmol/L (136-145)
[2025-08-01 08:08] LABS: Microalb ug/mg Crea 369.7 ug/mg Cr
== END 2025-08-01 01:31 | disposition home or self-care (01) ==
LOC: LBO 01:30
PROVIDERS: PCP Nurse Practitioner Family; Visit Provider Nurse Practitioner Family
DX: I10 Essential (primary) hypertension (principal); E11.9 Type 2 diabetes mellitus without complications
CPT/HCPCS: 36415; 80048; 82043; 82570